=== PATIENT | female | born 1980 | race Caucasian/White ===

== ENCOUNTER 2016-08-21 15:52 | Emergency (ER) | payer BC ==
[~2016-08-21] VITALS: Ht 157.5 cm; Wt 86.4 kg
[~2016-08-21 15:52] MED LIST: AMBIEN 5MG TABLE5 MG PO; AMOXICILLIN 8751 TAB PO; ATARAX 25MG25 MG/TAB PO; ATIVAN 0.50.5 MG/TAB PO; BENADRYL50 MG/ML IJ; BRINTELLIX20 PO; CARAFATE 1GM1 G PO; CARDIZEM LA180 MG PO; CELEXA40 MG PO; COGENTIN .0.5 MG/TAB PO; CYMBALTA 30MG30 MG PO; DAZIDOX10 MG PO; DEPAKOTE500 MG PO; DESYREL 50MG50 MG PO; DILAUDID 2MG TAB2 MG PO; FENTANYL 12MCG TOP; FENTANYL 25 MCG TOP; FLEXERIL 1010 MG/TAB PO; GEODON80 MG PO; HCTZ 25MG TAB25 MG PO; KLONOPIN 1MG1 MG PO; LAMICTAL 25MG T25 MG PO; LOPRESSOR 225 MG/TAB PO; LOPRESSOR 550 MG/TAB PO; LORTAB 5/500 501 TAB PO; MACROBID 1100 MG/CAP PO; MIGRANAL0.5 MG/ACT NS; MIRALAX PA17 GM/Dose PO; NEURONTIN300 MG/CAP PO; NEURONTIN600 MG/TAB PO; NORCO 325 MG-51 TAB PO; NORCO 325 MG-7.1 TAB PO; NORFLEX 30M30 MG/AMP IJ; OXYCONTIN 10MG10 MG PO; PAMELOR 25MG25 MG PO; PERCOCET 325 MG1 TA2 PO; PERCOCET 325 MG1 TAB PO; PHENERGAN 25 TA25 MG PO; PHENERGAN25 MG RC; PHENERGAN25 MG/ML IM; PHENERGAN50 MG/SUPP RC; PREDNISONE20 MG PO; PREMARIN .3MG0.3 MG PO; PREMARIN 0.60.625 M1 PO; PREMPRO 0.45 MG1 TAB PO; PRIL40 PO; PROAIR HFA0.09 MG/AC IH; PROMETHAZINE12.5 M5 PO; PROTONIX 40MG T40 MG PO; PROTONIX20 MG PO; REGLAN 10MG10 MG/TAB PO; ROXICODONE 55 MG/TAB PO; TOPAMAX 25MG25 M1; TOPAMAX50 MG PO; TRANSDERM-0.5 MG/21 TD; ULTRAM 50MG TAB50 MG PO; WELLBUTRIN 75MG75 MG PO; WELLBUTRIN SR150 M1 PO; XANAX 0.5MG0.5 MG PO; ZOFRAN 4MG T4 MG/TAB PO; ZOFRAN INJ4 MG/2 ML IM; ZOFRAN ODT4 MG PO; ZOFRAN ODT8 MG PO; ZOFRAN8 MG PO; ZOLOFT 25MG25 MG PO; ZOVIRAX800 MG PO; [UNRECOGNIZED DRUG - OTHER] PO
[2016-08-21 15:54] VITALS: TEMP 98.2
[2016-08-21 16:40] LABS: BASO # 0.1 (0.0-0.2); BASO % 0.6 % (0.0-2.0); EOS # 0.1 (0.0-0.7); GRAN # 9.8 (1.4-6.5); GRAN % 69.3 % (42.2-75.2); HEMATOCRIT 43.8 % (37.0-47.0); HEMOGLOBIN 14.3 g/dl (12.5-16.0); LYMPH # 3.6 (1.2-3.4); LYMPH % 25.5 % (20.0-51.0); MEAN CELL VOLUME 87 fl (80.0-100.0); MEAN CORPUSCULAR HEMOGLOBIN 28 pg (27.0-31.0); MEAN CORPUSCULAR HGB CONC 33 g/dl (33.0-37.0); MEAN PLATELET VOLUME 11.5 fl (7.4-10.4); MONO # 0.5 (0.1-0.6); MONO % 3.2 % (1.7-9.3); PLATELET COUNT 441 K/mm3 (130-400); RED BLOOD COUNT 5.05 M/mm3 (4.10-5.30); WHITE BLOOD COUNT 14.2 K/mm3 (4.8-10.8)
[2016-08-21 17:49] LABS: PH 5 (5-8); URINE APPEARANCE Clear; URINE BACTERIA Rare /hpf; URINE BILIRUBIN Negative (NEGATIVE); URINE BLOOD Negative (NEGATIVE); URINE COLOR Yellow; URINE GLUCOSE Negative (NEGATIVE); URINE KETONE Negative (NEGATIVE); URINE RBC 0-2 /hpf; URINE UROBILINOGEN Negative (NEGATIVE); URINE WBC 0-2 /hpf
[2016-08-21 18:28] LABS: ADJUSTED CALCIUM 9.1 mg/dL (8.4-10.2); ALBUMIN 4.4 gm/dL (3.5-5.0); BILIRUBIN,TOTAL 0.6 mg/dL (0.0-1.0); CALCIUM 9.4 mg/dL (8.4-10.2); CREATININE, serum 0.81 mg/dL (0.52-1.25); POTASSIUM 3.7 mmol/L (3.4-5.0); TOTAL PROTEIN 8.1 gm/dL (6.4-8.2)
[2016-08-21 18:49] VITALS: BP 120/72; PULSE 88
== END 2016-08-21 18:52 | disposition home or self-care (01) ==
LOC: COL.ER 15:52
PROVIDERS: Emergency Medicine
DX: R10.11 Right upper quadrant pain (principal); K83.8 Other specified diseases of biliary tract; R11.2 Nausea with vomiting, unspecified
CPT/HCPCS: J1170; J2550; J7040

== ENCOUNTER 2016-09-14 13:56 | Emergency (ER) | payer BC ==
[~2016-09-14] VITALS: Ht 157.5 cm; Wt 84.1 kg
[2016-09-14 14:03] VITALS: BP 149/75; PULSE 112; TEMP 99
[2016-09-14] MEDS ORDERED: ZOFRAN INJ4 MG/2 ML IM (14:34)
== END 2016-09-14 15:57 | disposition home or self-care (01) ==
LOC: COL.ER 13:56
DX: R11.10 Vomiting, unspecified (principal); R10.11 Right upper quadrant pain; G89.29 Other chronic pain
CPT/HCPCS: J1170; J2060; J2550

== ENCOUNTER → 2016-09-24 | Outpatient (CLI) | payer BC ==
[~2016-09-24] MED LIST changes: +BENADRYL 50M50 MG/ML IM; +CIPRO 500MG TA500 MG PO; +DILAUDID 4MG TAB4 MG PO; +FENTANYL 25 MCG TD; +TAZTIA180 PO
== END ==
LOC: MHCPAIN 09:48
DX: G89.29 Other chronic pain (principal); R10.9 Unspecified abdominal pain
CPT/HCPCS: G0463

== ENCOUNTER 2016-10-04 17:16 | Emergency (ER) | payer BC ==
[~2016-10-04] VITALS: Ht 157.5 cm; Wt 86.4 kg
[~2016-10-04 17:16] MED LIST changes: -BENADRYL 50M50 MG/ML IM; -CIPRO 500MG TA500 MG PO; -DILAUDID 4MG TAB4 MG PO; -FENTANYL 25 MCG TD; -TAZTIA180 PO
[2016-10-04 17:23] VITALS: BP 168/78
[2016-10-04 18:06] LABS: ADJUSTED CALCIUM 9.6 mg/dL (8.4-10.2); ALBUMIN 4.5 gm/dL (3.5-5.0); BILIRUBIN,TOTAL 0.7 mg/dL (0.0-1.0); CREATININE, serum 0.76 mg/dL (0.52-1.25); TOTAL PROTEIN 7.8 gm/dL (6.4-8.2)
[2016-10-04 18:08] VITALS: TEMP 98.8
[2016-10-04 19:52] VITALS: PULSE 112
[2016-10-05] MEDS ORDERED: BENADRYL 50M50 MG/ML IM (11:10)
== END 2016-10-04 19:53 | disposition home or self-care (01) ==
LOC: COL.ER 17:16
PROVIDERS: Nurse Practitioner
DX: R10.11 Right upper quadrant pain (principal); R11.2 Nausea with vomiting, unspecified; G89.29 Other chronic pain; I10 Essential (primary) hypertension; Z87.891 Personal history of nicotine dependence
CPT/HCPCS: J1170; J1200; J2405; J2550; J7030

== ENCOUNTER → 2016-10-04 | Outpatient (CLI) | payer BC, OTHER | LOC: MHCPAIN 13:51 | DX: R10.11 Right upper quadrant pain (principal) | CPT/HCPCS: J1100 ==

== ENCOUNTER 2016-10-05 10:47 | Outpatient (CLI) | payer BC ==
[~2016-10-05] VITALS: Ht 157.5 cm; Wt 86.3 kg
[2016-10-05] MEDS ORDERED: BENADRYL 50M50 MG/ML IM (11:10)
[2016-10-05 11:22] VITALS: BP 128/77; PULSE 106; TEMP 97.9
== END 2016-10-05 14:11 | disposition home or self-care (01) ==
LOC: EUO 10:47
DX: R10.11 Right upper quadrant pain (principal); G43.A0 Cyclical vomiting, in migraine, not intractable; F41.9 Anxiety disorder, unspecified
CPT/HCPCS: J1170; J2060; J7030

== ENCOUNTER 2016-10-05 17:15 | Observation (INO) | payer BC ==
[~2016-10-05] VITALS: Ht 157.5 cm; Wt 91.6 kg
[~2016-10-05 17:15] MED LIST changes: +BENADRYL 50M50 MG/ML IM
[2016-10-05 19:05] LABS: BASO % 0.2 % (0.0-2.0); EOS % 0.1 % (0-4.0); GRAN # 12.9 (1.4-6.5); GRAN % 74.4 % (42.2-75.2); HEMATOCRIT 37.4 % (37.0-47.0); HEMOGLOBIN 12.3 g/dl (12.5-16.0); LYMPH # 3.6 (1.2-3.4); LYMPH % 20.7 % (20.0-51.0); MEAN CELL VOLUME 87 fl (80.0-100.0); MEAN CORPUSCULAR HEMOGLOBIN 29 pg (27.0-31.0); MEAN CORPUSCULAR HGB CONC 33 g/dl (33.0-37.0); MONO # 0.6 (0.1-0.6); MONO % 3.6 % (1.7-9.3); PLATELET COUNT 392 K/mm3 (130-400); RED BLOOD COUNT 4.31 M/mm3 (4.10-5.30); REDCELL DISTRIBUTION WIDTH-CV 14.4 % (11.5-14.5); WHITE BLOOD COUNT 17.4 K/mm3 (4.8-10.8)
[2016-10-05 19:16] LABS: ADJUSTED CALCIUM 9.3 mg/dL (8.4-10.2); ALBUMIN 4.2 gm/dL (3.5-5.0); BILIRUBIN,TOTAL 0.6 mg/dL (0.0-1.0); CALCIUM 9.5 mg/dL (8.4-10.2); CREATININE, serum 0.77 mg/dL (0.52-1.25); POTASSIUM 3.5 mmol/L (3.4-5.0); TOTAL PROTEIN 7.3 gm/dL (6.4-8.2)
[2016-10-05 20:00] LABS: AMPHETAMINE URINE NEGATIVE; BARBITURATES URINE NEGATIVE; BENZODIAZEPINES URINE POSITIVE; BUPRENORPHINE URINE NEGATIVE; METHADONE URINE NEGATIVE; OPIATES URINE POSITIVE; OXYCODONE URINE NEGATIVE; PHENCYCLIDINE URINE NEGATIVE; PROPOXYPHENE URINE NEGATIVE; THC CANNABINOIDS URINE NEGATIVE
[2016-10-05 20:15] LABS: PH 5 (5-8); URINE APPEARANCE Hazy; URINE BACTERIA None Seen /hpf; URINE BILIRUBIN Negative (NEGATIVE); URINE BLOOD Negative (NEGATIVE); URINE COLOR Yellow; URINE GLUCOSE Negative (NEGATIVE); URINE KETONE Negative (NEGATIVE); URINE RBC 0-2 /hpf; URINE UROBILINOGEN Negative (NEGATIVE); URINE WBC 0-2 /hpf
[2016-10-05 21:38] VITALS: BP 130/76; PULSE 95; TEMP 97.8
[2016-10-05 23:48] VITALS: BP 140/81; PULSE 109; TEMP 98.6
[2016-10-06 04:27] VITALS: BP 110/69; PULSE 87; TEMP 98
[2016-10-06 07:26] LABS: BASO # 0.1 (0.0-0.2); BASO % 0.5 % (0.0-2.0); EOS # 0.1 (0.0-0.7); EOS % 0.5 % (0-4.0); GRAN # 6.2 (1.4-6.5); GRAN % 57.3 % (42.2-75.2); LYMPH % 37.8 % (20.0-51.0); MEAN CELL VOLUME 89 fl (80.0-100.0); MEAN CORPUSCULAR HGB CONC 32 g/dl (33.0-37.0); MEAN PLATELET VOLUME 11.1 fl (7.4-10.4); MONO # 0.3 (0.1-0.6); MONO % 3.2 % (1.7-9.3); PLATELET COUNT 306 K/mm3 (130-400); RED BLOOD COUNT 3.45 M/mm3 (4.10-5.30); REDCELL DISTRIBUTION WIDTH-CV 14.6 % (11.5-14.5); WHITE BLOOD COUNT 10.7 K/mm3 (4.8-10.8)
[2016-10-06 07:51] LABS: CALCIUM 8.1 mg/dL (8.4-10.2); CREATININE, serum 0.72 mg/dL (0.52-1.25); POTASSIUM 3.3 mmol/L (3.4-5.0)
[2016-10-06 07:52] LABS: HEMATOCRIT 30.8 % (37.0-47.0); HEMOGLOBIN 9.8 g/dl (12.5-16.0); MEAN CORPUSCULAR HEMOGLOBIN 28 pg (27.0-31.0)
[2016-10-06 07:53] VITALS: BP 139/85; PULSE 96; TEMP 97.9
[2016-10-06 11:40] VITALS: BP 140/100; PULSE 93; TEMP 98.5
[2016-10-06 15:42] VITALS: BP 126/83; PULSE 85; TEMP 97.7
[2016-10-06 19:54] VITALS: BP 129/79; PULSE 88; TEMP 97.7
[2016-10-07 00:13] VITALS: BP 106/72; PULSE 78; TEMP 98.9
[2016-10-07 02:37] VITALS: BP 108/70; PULSE 78; TEMP 98.4
[2016-10-07 07:44] VITALS: BP 123/79; PULSE 75; TEMP 98.1
[2016-10-07 12:08] VITALS: BP 130/77; PULSE 101; TEMP 98.7
[2016-10-07] MEDS ORDERED: PROTONIX 40MG T40 MG PO (13:16)
[2016-10-07] MEDS ORDERED: DILAUDID 4MG TAB4 MG PO (13:16)
== END 2016-10-07 14:15 | disposition home or self-care (01) ==
LOC: COL.ER 17:15 → MEDICAL 20:26
PROVIDERS: Emergency Medicine; Family Medicine
DX: K83.4 Spasm of sphincter of Oddi (principal); K21.9 Gastro-esophageal reflux disease without esophagitis; R11.2 Nausea with vomiting, unspecified; Z87.891 Personal history of nicotine dependence; F42.9 Obsessive-compulsive disorder, unspecified
CPT/HCPCS: 99239; C9113; G0378; J1170; J1200; J1630; J1650; J2405; J2550; J2765; J7030; J7120

== ENCOUNTER 2016-10-09 16:44 | Emergency (ER) | payer BC ==
[~2016-10-09] VITALS: Ht 157.5 cm; Wt 86.4 kg
[~2016-10-09 16:44] MED LIST changes: +DILAUDID 4MG TAB4 MG PO
[2016-10-09 16:52] VITALS: TEMP 100.3
[2016-10-09 17:31] LABS: BASO # 0.1 (0.0-0.2); BASO % 0.6 % (0.0-2.0); EOS # 0.2 (0.0-0.7); EOS % 1.6 % (0-4.0); GRAN # 8.8 (1.4-6.5); GRAN % 71.4 % (42.2-75.2); HEMOGLOBIN 13.5 g/dl (12.5-16.0); LYMPH # 2.8 (1.2-3.4); LYMPH % 22.5 % (20.0-51.0); MEAN CELL VOLUME 85 fl (80.0-100.0); MEAN CORPUSCULAR HEMOGLOBIN 29 pg (27.0-31.0); MEAN CORPUSCULAR HGB CONC 34 g/dl (33.0-37.0); MEAN PLATELET VOLUME 10.9 fl (7.4-10.4); MONO # 0.4 (0.1-0.6); PLATELET COUNT 456 K/mm3 (130-400); RED BLOOD COUNT 4.72 M/mm3 (4.10-5.30); REDCELL DISTRIBUTION WIDTH-CV 13.9 % (11.5-14.5); WHITE BLOOD COUNT 12.2 K/mm3 (4.8-10.8)
[2016-10-09 17:39] LABS: ADJUSTED CALCIUM 9.4 mg/dL (8.4-10.2); ALBUMIN 4.3 gm/dL (3.5-5.0); BILIRUBIN,TOTAL 0.7 mg/dL (0.0-1.0); CALCIUM 9.6 mg/dL (8.4-10.2); CREATININE, serum 0.74 mg/dL (0.52-1.25); POTASSIUM 3.5 mmol/L (3.4-5.0); TOTAL PROTEIN 7.6 gm/dL (6.4-8.2)
[2016-10-09 18:29] VITALS: BP 120/68; PULSE 115
== END 2016-10-09 18:30 | disposition home or self-care (01) ==
LOC: COL.ER 16:44
PROVIDERS: Family Medicine
DX: R10.84 Generalized abdominal pain (principal); R11.2 Nausea with vomiting, unspecified; G89.29 Other chronic pain
CPT/HCPCS: J1170; J1200; J1630; J2405; J7030

== ENCOUNTER 2016-10-11 10:47 | Outpatient (CLI) | payer BC ==
[~2016-10-11] VITALS: Ht 157.5 cm; Wt 86.8 kg
[2016-10-11 11:36] LABS: HEMATOCRIT 38.7 % (37.0-47.0); MEAN CELL VOLUME 85 fl (80.0-100.0); MEAN CORPUSCULAR HEMOGLOBIN 29 pg (27.0-31.0); MEAN CORPUSCULAR HGB CONC 34 g/dl (33.0-37.0); PLATELET COUNT 434 K/mm3 (130-400); RED BLOOD COUNT 4.56 M/mm3 (4.10-5.30); REDCELL DISTRIBUTION WIDTH-CV 14.4 % (11.5-14.5); WHITE BLOOD COUNT 11.9 K/mm3 (4.8-10.8)
[2016-10-11 11:48] VITALS: BP 145/93; PULSE 104; TEMP 98.7
[2016-10-11 11:52] LABS: ADJUSTED CALCIUM 9.2 mg/dL (8.4-10.2); ALBUMIN 4.1 gm/dL (3.5-5.0); BILIRUBIN,TOTAL 0.8 mg/dL (0.0-1.0); CALCIUM 9.3 mg/dL (8.4-10.2); CREATININE, serum 0.74 mg/dL (0.52-1.25); POTASSIUM 3.4 mmol/L (3.4-5.0); TOTAL PROTEIN 7.1 gm/dL (6.4-8.2)
== END 2016-10-11 15:02 | disposition home or self-care (01) ==
LOC: EUO 10:47
PROVIDERS: Family Medicine
DX: O21.0 Mild hyperemesis gravidarum (principal); G43.A1 Cyclical vomiting, in migraine, intractable; R10.11 Right upper quadrant pain; Z3A.00 Weeks of gestation of pregnancy not specified
CPT/HCPCS: J1170; J2550; J7120

== ENCOUNTER 2016-10-17 11:10 | Emergency (ER) | payer BC ==
[~2016-10-17] VITALS: Ht 157.5 cm; Wt 86.4 kg
[2016-10-17 11:13] VITALS: BP 138/63; TEMP 98.4
[2016-10-17 14:14] LABS: BASO # 0.1 (0.0-0.2); BASO % 0.6 % (0.0-2.0); EOS # 0.1 (0.0-0.7); GRAN # 8.3 (1.4-6.5); GRAN % 76.2 % (42.2-75.2); HEMATOCRIT 40.7 % (37.0-47.0); HEMOGLOBIN 13.6 g/dl (12.5-16.0); LYMPH % 18.5 % (20.0-51.0); MEAN CELL VOLUME 86 fl (80.0-100.0); MEAN CORPUSCULAR HEMOGLOBIN 29 pg (27.0-31.0); MEAN CORPUSCULAR HGB CONC 33 g/dl (33.0-37.0); MEAN PLATELET VOLUME 11.5 fl (7.4-10.4); MONO # 0.3 (0.1-0.6); MONO % 3.1 % (1.7-9.3); PLATELET COUNT 346 K/mm3 (130-400); RED BLOOD COUNT 4.72 M/mm3 (4.10-5.30); REDCELL DISTRIBUTION WIDTH-CV 14.6 % (11.5-14.5); WHITE BLOOD COUNT 10.9 K/mm3 (4.8-10.8)
[2016-10-17 14:35] LABS: ADJUSTED CALCIUM 9.5 mg/dL (8.4-10.2); ALBUMIN 4.3 gm/dL (3.5-5.0); BILIRUBIN,TOTAL 0.7 mg/dL (0.0-1.0); C-REACTIVE PROTEIN 1.9 mg/dL (0.0-0.9); CALCIUM 9.7 mg/dL (8.4-10.2); CREATININE, serum 0.85 mg/dL (0.52-1.25); POTASSIUM 3.7 mmol/L (3.4-5.0); TOTAL PROTEIN 7.5 gm/dL (6.4-8.2)
[2016-10-17] MEDS ORDERED: PHENERGAN 25 TA25 MG PO (15:01)
[2016-10-17 15:16] VITALS: PULSE 96
== END 2016-10-17 15:17 | disposition home or self-care (01) ==
LOC: COL.ER 11:10
PROVIDERS: Family Medicine
DX: R10.11 Right upper quadrant pain (principal); R11.2 Nausea with vomiting, unspecified
CPT/HCPCS: J1200; J2060; J2405; J2550; J7030

== ENCOUNTER 2016-10-18 12:27 | Outpatient (CLI) | payer BC ==
[2016-10-18 14:38] LABS: ADJUSTED CALCIUM 9.3 mg/dL (8.4-10.2); BILIRUBIN,TOTAL 0.6 mg/dL (0.0-1.0); CALCIUM 9.3 mg/dL (8.4-10.2); CREATININE, serum 0.72 mg/dL (0.52-1.25); POTASSIUM 3.8 mmol/L (3.4-5.0)
[2016-10-18 14:45] VITALS: BP 104/55; PULSE 118; TEMP 98.7
[2016-10-18 16:41] LABS: BASO # 0.1 (0.0-0.2); BASO % 0.9 % (0.0-2.0); EOS # 0.2 (0.0-0.7); EOS % 2.8 % (0-4.0); GRAN # 5.4 (1.4-6.5); GRAN % 61.4 % (42.2-75.2); HEMATOCRIT 38.6 % (37.0-47.0); HEMOGLOBIN 12.5 g/dl (12.5-16.0); LYMPH # 2.7 (1.2-3.4); LYMPH % 30.5 % (20.0-51.0); MEAN CELL VOLUME 88 fl (80.0-100.0); MEAN CORPUSCULAR HEMOGLOBIN 29 pg (27.0-31.0); MEAN CORPUSCULAR HGB CONC 32 g/dl (33.0-37.0); MEAN PLATELET VOLUME 11.8 fl (7.4-10.4); MONO # 0.3 (0.1-0.6); MONO % 3.9 % (1.7-9.3); PLATELET COUNT 328 K/mm3 (130-400); RED BLOOD COUNT 4.38 M/mm3 (4.10-5.30); REDCELL DISTRIBUTION WIDTH-CV 14.5 % (11.5-14.5); WHITE BLOOD COUNT 8.7 K/mm3 (4.8-10.8)
== END 2016-10-18 17:13 | disposition home or self-care (01) ==
LOC: EUO 12:27
PROVIDERS: Family Medicine
DX: R11.2 Nausea with vomiting, unspecified (principal); R10.11 Right upper quadrant pain
CPT/HCPCS: J1170; J2550; J7120

== ENCOUNTER 2016-11-01 14:48 | Emergency (ER) | payer BC ==
[~2016-11-01] VITALS: Ht 157.5 cm; Wt 86.4 kg
[2016-11-01 14:51] VITALS: TEMP 99.2
[2016-11-01 16:12] LABS: ADJUSTED CALCIUM 9.4 mg/dL (8.4-10.2); ALBUMIN 4.3 gm/dL (3.5-5.0); BILIRUBIN,TOTAL 0.8 mg/dL (0.0-1.0); C-REACTIVE PROTEIN 1.7 mg/dL (0.0-0.9); CALCIUM 9.6 mg/dL (8.4-10.2); CREATININE, serum 0.74 mg/dL (0.52-1.25); MAGNESIUM 1.8 mg/dL (1.6-2.3); POTASSIUM 3.9 mmol/L (3.4-5.0); TOTAL PROTEIN 7.7 gm/dL (6.4-8.2)
[2016-11-01 16:22] LABS: BASO # 0.1 (0.0-0.2); BASO % 0.6 % (0.0-2.0); EOS # 0.1 (0.0-0.7); EOS % 0.6 % (0-4.0); GRAN # 7.1 (1.4-6.5); GRAN % 79.5 % (42.2-75.2); HEMATOCRIT 41.2 % (37.0-47.0); HEMOGLOBIN 13.5 g/dl (12.5-16.0); LYMPH # 1.5 (1.2-3.4); LYMPH % 16.2 % (20.0-51.0); MEAN CELL VOLUME 86 fl (80.0-100.0); MEAN CORPUSCULAR HEMOGLOBIN 28 pg (27.0-31.0); MEAN CORPUSCULAR HGB CONC 33 g/dl (33.0-37.0); MEAN PLATELET VOLUME 11.3 fl (7.4-10.4); MONO # 0.2 (0.1-0.6); MONO % 2.5 % (1.7-9.3); PLATELET COUNT 364 K/mm3 (130-400); RED BLOOD COUNT 4.81 M/mm3 (4.10-5.30); REDCELL DISTRIBUTION WIDTH-CV 14.2 % (11.5-14.5); WHITE BLOOD COUNT 8.9 K/mm3 (4.8-10.8)
[2016-11-01 17:37] VITALS: BP 143/101; PULSE 111
[2016-11-02] MEDS ORDERED: TAZTIA180 PO (11:33)
== END 2016-11-01 17:41 | disposition home or self-care (01) ==
LOC: COL.ER 14:48
PROVIDERS: Emergency Medicine
DX: R10.11 Right upper quadrant pain (principal); G89.29 Other chronic pain; R11.10 Vomiting, unspecified
CPT/HCPCS: J1170; J1200; J2060; J2550; J7030

== ENCOUNTER 2016-11-02 10:55 | Outpatient (CLI) | payer BC ==
[~2016-11-02] VITALS: Ht 157.5 cm; Wt 86.0 kg
[2016-11-02 11:20] VITALS: BP 130/78; PULSE 96; TEMP 99.1
[2016-11-02] MEDS ORDERED: TAZTIA180 PO (11:33)
[2016-11-02 12:21] LABS: HEMATOCRIT 38.1 % (37.0-47.0); HEMOGLOBIN 12.6 g/dl (12.5-16.0); MEAN CELL VOLUME 86 fl (80.0-100.0); MEAN CORPUSCULAR HEMOGLOBIN 28 pg (27.0-31.0); MEAN CORPUSCULAR HGB CONC 33 g/dl (33.0-37.0); MEAN PLATELET VOLUME 11.2 fl (7.4-10.4); PLATELET COUNT 342 K/mm3 (130-400); RED BLOOD COUNT 4.44 M/mm3 (4.10-5.30); REDCELL DISTRIBUTION WIDTH-CV 14.3 % (11.5-14.5); WHITE BLOOD COUNT 7.6 K/mm3 (4.8-10.8)
[2016-11-02 12:32] LABS: ADJUSTED CALCIUM 8.9 mg/dL (8.4-10.2); ALBUMIN 3.9 gm/dL (3.5-5.0); BILIRUBIN,TOTAL 0.7 mg/dL (0.0-1.0); CALCIUM 8.8 mg/dL (8.4-10.2); CREATININE, serum 0.69 mg/dL (0.52-1.25); POTASSIUM 3.9 mmol/L (3.4-5.0); TOTAL PROTEIN 6.9 gm/dL (6.4-8.2)
== END 2016-11-02 16:21 | disposition home or self-care (01) ==
LOC: EUO 10:55
PROVIDERS: Family Medicine
DX: R10.11 Right upper quadrant pain (principal); R11.0 Nausea
CPT/HCPCS: J1170; J2060; J2550; J7120

== ENCOUNTER 2016-11-03 12:35 | Emergency (ER) | payer BC, OTHER ==
[~2016-11-03] VITALS: Ht 157.5 cm; Wt 86.4 kg
[~2016-11-03 12:35] MED LIST changes: +TAZTIA180 PO
[2016-11-03 12:37] VITALS: BP 146/98; TEMP 99.8
[2016-11-03 15:01] VITALS: PULSE 107
== END 2016-11-03 14:49 | disposition home or self-care (01) ==
LOC: COL.ER 12:35
DX: R11.2 Nausea with vomiting, unspecified (principal); R10.11 Right upper quadrant pain; R63.0 Anorexia; R50.9 Fever, unspecified
CPT/HCPCS: J1200; J1630

== ENCOUNTER → 2016-11-07 | Outpatient (CLI) | payer BC ==
[~2016-11-07] MED LIST changes: +CIPRO 500MG TA500 MG PO; +FENTANYL 25 MCG TD
== END ==
LOC: MHCPAIN 10:23
DX: G89.29 Other chronic pain (principal); R10.9 Unspecified abdominal pain; M25.561 Pain in right knee; M25.562 Pain in left knee
CPT/HCPCS: G0463

== ENCOUNTER 2016-11-16 14:58 | Outpatient (CLI) | payer BC ==
[~2016-11-16] VITALS: Ht 157.5 cm; Wt 86.0 kg
[~2016-11-16 14:58] MED LIST changes: -CIPRO 500MG TA500 MG PO; -FENTANYL 25 MCG TD
[2016-11-16 15:24] VITALS: BP 123/87; PULSE 130; TEMP 98.4
[2016-11-16 16:24] LABS: HEMATOCRIT 41.2 % (37.0-47.0); HEMOGLOBIN 13.8 g/dl (12.5-16.0); MEAN CELL VOLUME 86 fl (80.0-100.0); MEAN CORPUSCULAR HEMOGLOBIN 29 pg (27.0-31.0); MEAN CORPUSCULAR HGB CONC 34 g/dl (33.0-37.0); MEAN PLATELET VOLUME 11.2 fl (7.4-10.4); PLATELET COUNT 371 K/mm3 (130-400); REDCELL DISTRIBUTION WIDTH-CV 13.7 % (11.5-14.5); WHITE BLOOD COUNT 10.7 K/mm3 (4.8-10.8)
[2016-11-16 16:25] LABS: AMYLASE 41 U/L (30-110); LIPASE 42 U/L (23-300)
[2016-11-16 16:37] LABS: ADJUSTED CALCIUM 9.1 mg/dL (8.4-10.2); ALBUMIN 4.2 gm/dL (3.5-5.0); BILIRUBIN,TOTAL 0.8 mg/dL (0.0-1.0); CALCIUM 9.3 mg/dL (8.4-10.2); CREATININE, serum 0.71 mg/dL (0.52-1.25); POTASSIUM 3.8 mmol/L (3.4-5.0); TOTAL PROTEIN 7.6 gm/dL (6.4-8.2)
== END 2016-11-16 19:58 | disposition home or self-care (01) ==
LOC: EUO 14:58
PROVIDERS: Family Medicine
DX: R52 Pain, unspecified (principal)
CPT/HCPCS: J1170; J2550; J7120

== ENCOUNTER 2016-12-09 12:48 | Emergency (ER) | payer BC ==
[~2016-12-09] VITALS: Ht 157.5 cm; Wt 86.4 kg
[2016-12-09 12:49] VITALS: BP 132/94; TEMP 99.8
[2016-12-09 13:09] LABS: COLLECTION METHOD CLEAN CATCH
[2016-12-09 13:14] LABS: MUCOUS Present /lpf; PH 7 (5-8); URINE APPEARANCE Hazy; URINE BACTERIA None Seen /hpf; URINE BILIRUBIN Negative (NEGATIVE); URINE BLOOD Negative (NEGATIVE); URINE COLOR Yellow; URINE GLUCOSE Negative (NEGATIVE); URINE KETONE Negative (NEGATIVE); URINE LEUKOCYTE ESTERASE Negative (NEGATIVE); URINE PROTEIN(semi-quant) Negative (NEGATIVE); URINE RBC 0-2 /hpf; URINE UROBILINOGEN Negative (NEGATIVE); URINE WBC 0-2 /hpf
[2016-12-09] MEDS ORDERED: CIPRO 500MG TA500 MG PO (13:58)
[2016-12-09 14:06] VITALS: PULSE 101
[2017-03-24] MEDS ORDERED: PHENERGAN 25 TA25 MG PO (18:19)
== END 2016-12-09 14:07 | disposition home or self-care (01) ==
LOC: COL.ER 12:48
PROVIDERS: Physician Assistant
DX: N39.0 Urinary tract infection, site not specified (principal)

== ENCOUNTER 2016-12-10 16:20 | Outpatient (CLI) | payer BC ==
[~2016-12-10] VITALS: Ht 157.5 cm; Wt 86.0 kg
[~2016-12-10 16:20] MED LIST changes: +CIPRO 500MG TA500 MG PO
[2016-12-10 17:08] VITALS: BP 128/80; PULSE 99; TEMP 98.3
== END 2016-12-10 19:16 ==
LOC: EUO 16:20
DX: F41.9 Anxiety disorder, unspecified (principal); R11.0 Nausea; R10.11 Right upper quadrant pain
CPT/HCPCS: J1170; J2060; J2550; J7120

== ENCOUNTER 2016-12-12 14:43 | Outpatient (CLI) | payer BC ==
[~2016-12-12] VITALS: Ht 157.5 cm; Wt 85.9 kg
[2016-12-12 15:53] VITALS: BP 131/91; PULSE 108; TEMP 99.1
== END 2016-12-12 19:03 | disposition home or self-care (01) ==
LOC: EUO 14:43
DX: R11.2 Nausea with vomiting, unspecified (principal); R10.11 Right upper quadrant pain
CPT/HCPCS: J1170; J2060; J2550; J7120

== ENCOUNTER → 2016-12-21 | Outpatient (CLI) | payer BC ==
[~2016-12-21] VITALS: Ht 157.5 cm; Wt 86.0 kg
[~2016-12-21] MED LIST changes: +FENTANYL 25 MCG TD
[2016-12-21 16:52] VITALS: BP 125/93; PULSE 101; TEMP 98
== END ==
LOC: EUO 15:36
DX: R11.2 Nausea with vomiting, unspecified (principal); Z79.899 Other long term (current) drug therapy
CPT/HCPCS: J1170; J2060; J2550; J7120

== ENCOUNTER 2016-12-23 13:22 | Emergency (ER) | payer BC ==
[~2016-12-23] VITALS: Ht 157.5 cm; Wt 86.4 kg
[~2016-12-23 13:22] MED LIST changes: -FENTANYL 25 MCG TD
[2016-12-23 13:26] VITALS: BP 149/106; TEMP 99.7
[2016-12-23 14:16] LABS: BASO # 0.1 (0.0-0.2); BASO % 1.1 % (0.0-2.0); EOS # 0.2 (0.0-0.7); EOS % 2.4 % (0-4.0); GRAN # 5.1 (1.4-6.5); GRAN % 59.3 % (42.2-75.2); HEMATOCRIT 39.2 % (37.0-47.0); HEMOGLOBIN 13.3 g/dl (12.5-16.0); LYMPH # 2.7 (1.2-3.4); LYMPH % 31.5 % (20.0-51.0); MEAN CELL VOLUME 85 fl (80.0-100.0); MEAN CORPUSCULAR HEMOGLOBIN 29 pg (27.0-31.0); MEAN CORPUSCULAR HGB CONC 34 g/dl (33.0-37.0); MEAN PLATELET VOLUME 11.1 fl (7.4-10.4); MONO # 0.5 (0.1-0.6); MONO % 5.3 % (1.7-9.3); PLATELET COUNT 333 K/mm3 (130-400); RED BLOOD COUNT 4.59 M/mm3 (4.10-5.30); REDCELL DISTRIBUTION WIDTH-CV 14.1 % (11.5-14.5); WHITE BLOOD COUNT 8.5 K/mm3 (4.8-10.8)
[2016-12-23 14:23] LABS: ADJUSTED CALCIUM 9.4 mg/dL (8.4-10.2); ALBUMIN 4.1 gm/dL (3.5-5.0); BILIRUBIN,TOTAL 0.5 mg/dL (0.0-1.0); CALCIUM 9.5 mg/dL (8.4-10.2); CREATININE, serum 0.75 mg/dL (0.52-1.25); POTASSIUM 3.9 mmol/L (3.4-5.0); TOTAL PROTEIN 7.5 gm/dL (6.4-8.2)
[2016-12-23 15:57] VITALS: PULSE 102
== END 2016-12-23 16:00 | disposition home or self-care (01) ==
LOC: COL.ER 13:22
PROVIDERS: Physician Assistant Medical
DX: G89.29 Other chronic pain (principal); R10.9 Unspecified abdominal pain; R11.10 Vomiting, unspecified; F41.9 Anxiety disorder, unspecified; Z90.49 Acquired absence of other specified parts of digestive tract; Z90.710 Acquired absence of both cervix and uterus; Z98.890 Other specified postprocedural states
CPT/HCPCS: J1170; J2060; J2550; J7030

== ENCOUNTER 2016-12-28 17:03 | Emergency (ER) | payer BC ==
[~2016-12-28] VITALS: Ht 157.5 cm; Wt 86.4 kg
[2016-12-28 17:06] VITALS: TEMP 100.6
[2016-12-28 18:02] LABS: BASO # 0.1 (0.0-0.2); BASO % 0.6 % (0.0-2.0); EOS # 0.2 (0.0-0.7); EOS % 1.6 % (0-4.0); GRAN # 7.8 (1.4-6.5); GRAN % 71.1 % (42.2-75.2); HEMATOCRIT 42.3 % (37.0-47.0); HEMOGLOBIN 14.2 g/dl (12.5-16.0); LYMPH # 2.5 (1.2-3.4); LYMPH % 22.4 % (20.0-51.0); MEAN CELL VOLUME 84 fl (80.0-100.0); MEAN CORPUSCULAR HEMOGLOBIN 28 pg (27.0-31.0); MEAN CORPUSCULAR HGB CONC 34 g/dl (33.0-37.0); MEAN PLATELET VOLUME 11.1 fl (7.4-10.4); MONO # 0.4 (0.1-0.6); MONO % 3.8 % (1.7-9.3); PLATELET COUNT 355 K/mm3 (130-400); RED BLOOD COUNT 5.02 M/mm3 (4.10-5.30); REDCELL DISTRIBUTION WIDTH-CV 14.1 % (11.5-14.5); WHITE BLOOD COUNT 10.9 K/mm3 (4.8-10.8)
[2016-12-28 18:30] LABS: ERYTHROCYTE SEDIMENTATION RATE 16 mm/hr (0-20)
[2016-12-28 18:51] LABS: ADJUSTED CALCIUM 8.9 mg/dL (8.4-10.2); BILIRUBIN,TOTAL 0.3 mg/dL (0.0-1.0); CALCIUM 8.9 mg/dL (8.4-10.2); CREATININE, serum 0.73 mg/dL (0.52-1.25); POTASSIUM 3.6 mmol/L (3.4-5.0); TOTAL PROTEIN 7.1 gm/dL (6.4-8.2)
[2016-12-28 19:47] LABS: PH 5 (5-8); SQUAMOUS EPITHELIAL 0-2 /hpf; URINE APPEARANCE Clear; URINE BACTERIA Rare /hpf; URINE BILIRUBIN Negative (NEGATIVE); URINE BLOOD Negative (NEGATIVE); URINE COLOR Yellow; URINE GLUCOSE Negative (NEGATIVE); URINE KETONE Negative (NEGATIVE); URINE RBC 0-2 /hpf; URINE UROBILINOGEN Negative (NEGATIVE); URINE WBC 0-2 /hpf
[2016-12-28 20:11] VITALS: BP 130/85; PULSE 99
== END 2016-12-28 20:21 | disposition home or self-care (01) ==
LOC: COL.ER 17:03
PROVIDERS: Emergency Medicine
DX: R10.11 Right upper quadrant pain (principal); F17.210 Nicotine dependence, cigarettes, uncomplicated; Z90.710 Acquired absence of both cervix and uterus; Z90.49 Acquired absence of other specified parts of digestive tract; Z90.89 Acquired absence of other organs; Z98.890 Other specified postprocedural states
CPT/HCPCS: J1170; J1200; J1630; J2060; J7030

== ENCOUNTER 2016-12-31 14:34 | Outpatient (CLI) | payer BC ==
[~2016-12-31] VITALS: Ht 157.5 cm; Wt 86.3 kg
[2016-12-31 17:05] VITALS: BP 135/81; PULSE 88; TEMP 99.3
== END 2016-12-31 20:23 | disposition home or self-care (01) ==
LOC: EUO 14:34
DX: R11.2 Nausea with vomiting, unspecified (principal); R10.11 Right upper quadrant pain
CPT/HCPCS: J1170; J2060; J2550; J7120

== ENCOUNTER 2017-01-05 19:47 | Emergency (ER) | payer BC ==
[~2017-01-05] VITALS: Ht 157 cm; Wt 86.4 kg
[2017-01-05 19:56] VITALS: BP 140/81; TEMP 99.4
[2017-01-05] MEDS ORDERED: GEODON80 MG PO (20:10)
[2017-01-05] MEDS ORDERED: FENTANYL 25 MCG TD (20:11)
[2017-01-05 20:47] LABS: BASO # 0.1 (0.0-0.2); BASO % 0.7 % (0.0-2.0); EOS # 0.3 (0.0-0.7); EOS % 2.9 % (0-4.0); GRAN # 6.1 (1.4-6.5); GRAN % 59.8 % (42.2-75.2); HEMATOCRIT 44.5 % (37.0-47.0); HEMOGLOBIN 14.7 g/dl (12.5-16.0); LYMPH # 3.3 (1.2-3.4); LYMPH % 32.3 % (20.0-51.0); MEAN CELL VOLUME 86 fl (80.0-100.0); MEAN CORPUSCULAR HEMOGLOBIN 28 pg (27.0-31.0); MEAN CORPUSCULAR HGB CONC 33 g/dl (33.0-37.0); MEAN PLATELET VOLUME 10.7 fl (7.4-10.4); MONO # 0.4 (0.1-0.6); MONO % 3.9 % (1.7-9.3); PLATELET COUNT 458 K/mm3 (130-400); RED BLOOD COUNT 5.18 M/mm3 (4.10-5.30); REDCELL DISTRIBUTION WIDTH-CV 13.7 % (11.5-14.5); WHITE BLOOD COUNT 10.1 K/mm3 (4.8-10.8)
[2017-01-05 21:00] LABS: ADJUSTED CALCIUM 9.6 mg/dL (8.4-10.2); ALBUMIN 4.7 gm/dL (3.5-5.0); BILIRUBIN,TOTAL 0.4 mg/dL (0.0-1.0); CALCIUM 10.2 mg/dL (8.4-10.2); CREATININE, serum 0.81 mg/dL (0.52-1.25); POTASSIUM 4.2 mmol/L (3.4-5.0); TOTAL PROTEIN 8.4 gm/dL (6.4-8.2)
[2017-01-05 21:17] LABS: PH 5 (5-8); URINE APPEARANCE Hazy; URINE BACTERIA Rare /hpf; URINE BILIRUBIN Negative (NEGATIVE); URINE BLOOD Negative (NEGATIVE); URINE COLOR Yellow; URINE GLUCOSE Negative (NEGATIVE); URINE KETONE Negative (NEGATIVE); URINE RBC None Seen /hpf; URINE UROBILINOGEN Negative (NEGATIVE); URINE WBC 0-2 /hpf
[2017-01-05 21:48] VITALS: PULSE 102
== END 2017-01-05 21:49 | disposition home or self-care (01) ==
LOC: COL.ER 19:47
PROVIDERS: Emergency Medicine
DX: R10.11 Right upper quadrant pain (principal); G89.29 Other chronic pain; R11.2 Nausea with vomiting, unspecified; K83.8 Other specified diseases of biliary tract; F41.9 Anxiety disorder, unspecified
CPT/HCPCS: J1170; J2405; J2550; J7030

== ENCOUNTER 2017-01-10 14:15 | Observation (INO) | payer BC ==
[~2017-01-10] VITALS: Ht 157.5 cm; Wt 85.6 kg
[2017-01-10] VITALS (9 sets, daily range): BP systolic 114–141; BP diastolic 65–117; PULSE 104–126; TEMP 98–99.2
[~2017-01-10 14:15] MED LIST changes: +FENTANYL 25 MCG TD
[2017-01-10] MEDS ORDERED: DAZIDOX10 MG PO (15:02)
[2017-01-11 00:58] LABS: ALBUMIN 3.7 gm/dL (3.5-5.0); TOTAL PROTEIN 6.7 gm/dL (6.4-8.2)
[2017-01-11 01:12] LABS: BILIRUBIN,DIRECT 0.5 mg/dL (0.0-0.4); BILIRUBIN,TOTAL 0.5 mg/dL (0.0-1.0)
[2017-01-11 01:14] VITALS: BP 111/51; BP 119/70; PULSE 105; PULSE 69; TEMP 98.1; TEMP 98.4
[2017-01-11 05:49] VITALS: BP 101/40; PULSE 84; TEMP 97.3
[2017-01-11 09:54] VITALS: BP 145/91; PULSE 117
== END 2017-01-11 14:28 | disposition home or self-care (01) ==
LOC: SDCO 14:15 → SURG 16:50 → SDCO 16:50 → SURG 01-11 14:28
PROVIDERS: Internal Medicine Gastroenterology
DX: K31.5 Obstruction of duodenum (principal); K83.8 Other specified diseases of biliary tract; K31.9 Disease of stomach and duodenum, unspecified; K31.1 Adult hypertrophic pyloric stenosis; G89.4 Chronic pain syndrome; Z76.5 Malingerer [conscious simulation]; G43.909 Migraine, unspecified, not intractable, without status migrainosus; F42.9 Obsessive-compulsive disorder, unspecified
CPT/HCPCS: 99239; C1727; C1769; G0378; G0379; J1170; J1200; J2060; J2250; J2550; J2704; J7120; Q9967

== ENCOUNTER 2017-01-11 15:20 | Outpatient (CLI) | payer BC ==
[2017-01-11 15:24] VITALS: BP 145/85; PULSE 111; TEMP 99
== END 2017-01-11 18:40 | disposition home or self-care (01) ==
LOC: EUO 15:20
DX: R11.2 Nausea with vomiting, unspecified (principal); R10.11 Right upper quadrant pain
CPT/HCPCS: J1170; J2550; J7120

== ENCOUNTER 2017-01-19 19:42 | Inpatient (IN) | payer BC ==
[~2017-01-19] VITALS: Ht 157.5 cm; Wt 87.3 kg
[2017-01-19 20:08] LABS: BASO # 0.1 (0.0-0.2); BASO % 0.6 % (0.0-2.0); EOS # 0.2 (0.0-0.7); EOS % 1.5 % (0-4.0); GRAN # 5.9 (1.4-6.5); GRAN % 59.3 % (42.2-75.2); HEMATOCRIT 40.6 % (37.0-47.0); HEMOGLOBIN 13.7 g/dl (12.5-16.0); LYMPH # 3.4 (1.2-3.4); MEAN CELL VOLUME 85 fl (80.0-100.0); MEAN CORPUSCULAR HEMOGLOBIN 29 pg (27.0-31.0); MEAN CORPUSCULAR HGB CONC 34 g/dl (33.0-37.0); MONO # 0.4 (0.1-0.6); PLATELET COUNT 418 K/mm3 (130-400); RED BLOOD COUNT 4.79 M/mm3 (4.10-5.30); REDCELL DISTRIBUTION WIDTH-CV 13.9 % (11.5-14.5); WHITE BLOOD COUNT 9.9 K/mm3 (4.8-10.8)
[2017-01-19 20:25] LABS: ADJUSTED CALCIUM 9.4 mg/dL (8.4-10.2); ALANINE AMINOTRANSFERASE 20 U/L (9-52); ALBUMIN 4.4 gm/dL (3.5-5.0); ALKALINE PHOSPHATASE 105 U/L (50-136); ANION GAP 17 mmol/L (7-16); BILIRUBIN,TOTAL 0.4 mg/dL (0.0-1.0); BLOOD UREA NITROGEN 8 mg/dL (7-17); CALCIUM 9.7 mg/dL (8.4-10.2); CARBON DIOXIDE 22 mmol/L (22-30); CHLORIDE 105 mmol/L (98-107); CREATININE, serum 0.68 mg/dL (0.52-1.25); GLUCOSE 107 mg/dL (74-106); LIPASE 79 U/L (23-300); POTASSIUM 3.7 mmol/L (3.4-5.0); SODIUM 143 mmol/L (137-145); TOTAL PROTEIN 7.6 gm/dL (6.4-8.2)
[2017-01-19 21:19] LABS: PH 6 (5-8); SQUAMOUS EPITHELIAL 0-2 /hpf; URINE APPEARANCE Clear; URINE BACTERIA None Seen /hpf; URINE BILIRUBIN Negative (NEGATIVE); URINE BLOOD Negative (NEGATIVE); URINE COLOR Straw; URINE GLUCOSE Negative (NEGATIVE); URINE KETONE Negative (NEGATIVE); URINE RBC 0-2 /hpf; URINE UROBILINOGEN Negative (NEGATIVE); URINE WBC 0-2 /hpf
[2017-01-19 22:41] VITALS: BP 118/56; PULSE 88; TEMP 98.7
[2017-01-20] VITALS: BP 102/60; PULSE 83; TEMP 98.4
[2017-01-20 00:47] LABS: AMPHETAMINE URINE NEGATIVE; BARBITURATES URINE NEGATIVE; BENZODIAZEPINES URINE NEGATIVE; BUPRENORPHINE URINE NEGATIVE; METHADONE URINE NEGATIVE; OPIATES URINE POSITIVE; OXYCODONE URINE POSITIVE; PHENCYCLIDINE URINE NEGATIVE; PROPOXYPHENE URINE NEGATIVE; THC CANNABINOIDS URINE NEGATIVE
[2017-01-20 04:38] VITALS: BP 118/63; PULSE 82; TEMP 97.7
[2017-01-20 06:31] LABS: BASO # 0.1 (0.0-0.2); EOS # 0.2 (0.0-0.7); EOS % 2.9 % (0-4.0); GRAN # 3.5 (1.4-6.5); GRAN % 49.3 % (42.2-75.2); LYMPH % 41.8 % (20.0-51.0); MEAN CELL VOLUME 87 fl (80.0-100.0); MEAN CORPUSCULAR HGB CONC 33 g/dl (33.0-37.0); MEAN PLATELET VOLUME 11.1 fl (7.4-10.4); MONO # 0.3 (0.1-0.6); MONO % 4.6 % (1.7-9.3); RED BLOOD COUNT 3.69 M/mm3 (4.10-5.30); REDCELL DISTRIBUTION WIDTH-CV 14.3 % (11.5-14.5); WHITE BLOOD COUNT 7.2 K/mm3 (4.8-10.8)
[2017-01-20 06:36] LABS: CALCIUM 8.1 mg/dL (8.4-10.2); CREATININE, serum 0.65 mg/dL (0.52-1.25); POTASSIUM 3.4 mmol/L (3.4-5.0)
[2017-01-20 06:41] LABS: HEMATOCRIT 32.2 % (37.0-47.0); HEMOGLOBIN 10.5 g/dl (12.5-16.0); MEAN CORPUSCULAR HEMOGLOBIN 28 pg (27.0-31.0); PLATELET COUNT 298 K/mm3 (130-400)
[2017-01-20 08:13] VITALS: BP 108/61; PULSE 73; TEMP 97.4
[2017-01-20 11:49] VITALS: BP 106/50; PULSE 96; TEMP 98
== END 2017-01-20 15:43 | disposition home or self-care (01) | DRG 392 ==
LOC: COL.ER 19:42 → MEDICAL 21:36
PROVIDERS: Emergency Medicine; Nurse Practitioner Family
DX: R10.84 Generalized abdominal pain (principal); R11.2 Nausea with vomiting, unspecified; E86.0 Dehydration; F42.9 Obsessive-compulsive disorder, unspecified; F41.9 Anxiety disorder, unspecified; Z87.891 Personal history of nicotine dependence; G43.909 Migraine, unspecified, not intractable, without status migrainosus
CPT/HCPCS: 99238; C9113; G0378; J1170; J1200; J1630; J2405; J2550; J3480; J7030; Q9967

== ENCOUNTER 2017-01-25 15:20 | Emergency (ER) | payer BC ==
[~2017-01-25] VITALS: Ht 157.5 cm; Wt 81.8 kg
[2017-01-25 15:24] VITALS: BP 136/69; TEMP 100
[2017-01-25 16:23] LABS: BASO # 0.1 (0.0-0.2); BASO % 0.6 % (0.0-2.0); EOS # 0.1 (0.0-0.7); EOS % 0.7 % (0-4.0); GRAN # 6.7 (1.4-6.5); GRAN % 68.7 % (42.2-75.2); HEMATOCRIT 43.3 % (37.0-47.0); HEMOGLOBIN 14.5 g/dl (12.5-16.0); LYMPH # 2.4 (1.2-3.4); LYMPH % 24.8 % (20.0-51.0); MEAN CELL VOLUME 85 fl (80.0-100.0); MEAN CORPUSCULAR HEMOGLOBIN 28 pg (27.0-31.0); MEAN CORPUSCULAR HGB CONC 34 g/dl (33.0-37.0); MEAN PLATELET VOLUME 10.8 fl (7.4-10.4); MONO # 0.5 (0.1-0.6); MONO % 4.9 % (1.7-9.3); PLATELET COUNT 395 K/mm3 (130-400); RED BLOOD COUNT 5.11 M/mm3 (4.10-5.30); WHITE BLOOD COUNT 9.8 K/mm3 (4.8-10.8)
[2017-01-25 16:35] LABS: ADJUSTED CALCIUM 9.5 mg/dL (8.4-10.2); ALBUMIN 4.6 gm/dL (3.5-5.0); BILIRUBIN,TOTAL 0.5 mg/dL (0.0-1.0); C-REACTIVE PROTEIN 1.5 mg/dL (0.0-0.9); CREATININE, serum 0.73 mg/dL (0.52-1.25); POTASSIUM 3.6 mmol/L (3.4-5.0); TOTAL PROTEIN 8.3 gm/dL (6.4-8.2)
[2017-01-25] MEDS ORDERED: ULTRAM 50MG TAB50 MG PO (17:26)
[2017-01-25 17:33] VITALS: PULSE 140
== END 2017-01-25 17:32 | disposition home or self-care (01) ==
LOC: COL.ER 15:20
PROVIDERS: Emergency Medicine
DX: R10.11 Right upper quadrant pain (principal); R11.2 Nausea with vomiting, unspecified; G89.29 Other chronic pain; R00.0 Tachycardia, unspecified
CPT/HCPCS: J1170; J2060; J2405; J2550; J7030

== ENCOUNTER 2017-01-30 16:52 | Emergency (ER) | payer BC ==
[~2017-01-30] VITALS: Ht 157.5 cm; Wt 81.8 kg
[2017-01-30 16:58] VITALS: TEMP 100.2
[2017-01-30 19:14] VITALS: BP 135/73; PULSE 105
== END 2017-01-30 19:28 | disposition home or self-care (01) ==
LOC: COL.ER 16:52
DX: G43.909 Migraine, unspecified, not intractable, without status migrainosus (principal); F32.9 Major depressive disorder, single episode, unspecified; F41.9 Anxiety disorder, unspecified; G89.29 Other chronic pain; R10.9 Unspecified abdominal pain; Z90.710 Acquired absence of both cervix and uterus; Z90.49 Acquired absence of other specified parts of digestive tract; Z90.89 Acquired absence of other organs; Z87.891 Personal history of nicotine dependence
CPT/HCPCS: J1200; J1630; J2060; J7030

== ENCOUNTER 2017-01-31 15:26 | Outpatient (CLI) | payer BC ==
[~2017-01-31] VITALS: Ht 157.5 cm; Wt 81.8 kg
[2017-01-31 15:50] VITALS: BP 121/78; PULSE 115; TEMP 99
== END 2017-01-31 18:41 | disposition home or self-care (01) ==
LOC: EUO 15:26
DX: R11.2 Nausea with vomiting, unspecified (principal); R10.11 Right upper quadrant pain
CPT/HCPCS: J1170; J2550; J7120

== ENCOUNTER 2017-02-19 14:42 | Outpatient (CLI) | payer BC ==
[~2017-02-19] VITALS: Ht 157.5 cm; Wt 81.0 kg
[2017-02-19 16:05] VITALS: BP 143/85; PULSE 111; TEMP 98.6
== END 2017-02-19 19:00 | disposition home or self-care (01) ==
LOC: EUO 14:42
DX: R11.2 Nausea with vomiting, unspecified (principal); R10.11 Right upper quadrant pain
CPT/HCPCS: J1170; J2060; J2550; J7120

== ENCOUNTER 2017-02-22 14:59 | Emergency (ER) | payer BC ==
[~2017-02-22] VITALS: Ht 157.5 cm; Wt 81.8 kg
[2017-02-22] MEDS ORDERED: PHENERGAN25 MG RC (16:19)
[2017-02-22 17:42] VITALS: BP 165/82; PULSE 103; TEMP 98.7
[2017-03-24] MEDS ORDERED: PHENERGAN 25 TA25 MG PO (18:19)
[2017-10-05] MEDS ORDERED: PHENERGAN25 MG/ML IM (17:19)
[2018-11-13] MEDS ORDERED: CEPHALEXIN500 M1 PO (10:07)
== END 2017-02-22 17:46 | disposition home or self-care (01) ==
LOC: COL.ER 14:59
DX: G43.909 Migraine, unspecified, not intractable, without status migrainosus (principal); K21.9 Gastro-esophageal reflux disease without esophagitis; Z98.890 Other specified postprocedural states
CPT/HCPCS: J1200; J1630; J2060; J2765; J7030

== ENCOUNTER 2017-03-20 14:14 | Outpatient (CLI) | payer BC ==
[~2017-03-20] VITALS: Ht 157.5 cm; Wt 80.5 kg
[2017-03-20 15:19] VITALS: BP 120/82; PULSE 102; TEMP 98.9
[2017-03-20] MEDS ORDERED: ZOLOFT 100MG100 MG PO (15:29)
== END 2017-03-20 17:43 | disposition home or self-care (01) ==
LOC: EUO 14:14
DX: R11.2 Nausea with vomiting, unspecified (principal)
CPT/HCPCS: J2405; J2550; J7030

== ENCOUNTER 2017-03-28 14:24 | Observation (INO) | payer BC ==
[~2017-03-28] VITALS: Ht 157.5 cm; Wt 86.4 kg
[~2017-03-28 14:24] MED LIST changes: +ZOLOFT 100MG100 MG PO
[2017-03-28] MEDS ORDERED: PHENERGAN25 MG/ML (15:39)
[2017-03-28 15:57] LABS: BASO # 0.1 (0.0-0.2); BASO % 0.7 % (0.0-2.0); EOS # 0.1 (0.0-0.7); EOS % 1.4 % (0-4.0); GRAN # 7.5 (1.4-6.5); HEMATOCRIT 42.7 % (37.0-47.0); LYMPH # 2.1 (1.2-3.4); LYMPH % 20.7 % (20.0-51.0); MEAN CELL VOLUME 88 fl (80.0-100.0); MEAN CORPUSCULAR HEMOGLOBIN 29 pg (27.0-31.0); MEAN CORPUSCULAR HGB CONC 33 g/dl (33.0-37.0); MEAN PLATELET VOLUME 11.6 fl (7.4-10.4); MONO # 0.4 (0.1-0.6); MONO % 3.6 % (1.7-9.3); PLATELET COUNT 338 K/mm3 (130-400); RED BLOOD COUNT 4.85 M/mm3 (4.10-5.30); REDCELL DISTRIBUTION WIDTH-CV 15.1 % (11.5-14.5); WHITE BLOOD COUNT 10.3 K/mm3 (4.8-10.8)
[2017-03-28 16:03] LABS: ADJUSTED CALCIUM 9.2 mg/dL (8.4-10.2); ALBUMIN 4.3 gm/dL (3.5-5.0); BILIRUBIN,TOTAL 0.5 mg/dL (0.0-1.0); C-REACTIVE PROTEIN 2.6 mg/dL (0.0-0.9); CALCIUM 9.4 mg/dL (8.4-10.2); CREATININE, serum 0.75 mg/dL (0.52-1.25); POTASSIUM 3.5 mmol/L (3.4-5.0); TOTAL PROTEIN 7.7 gm/dL (6.4-8.2)
[2017-03-28 18:25] VITALS: BP 138/94; PULSE 102; TEMP 98.4
[2017-03-29 00:02] VITALS: BP 131/71; PULSE 97; TEMP 98.8
[2017-03-29 03:38] VITALS: BP 140/85; PULSE 86; TEMP 98.7
[2017-03-29 07:47] VITALS: BP 131/83; PULSE 87; TEMP 97.8
[2017-03-29 08:11] LABS: ADJUSTED CALCIUM 8.7 mg/dL (8.4-10.2); ALBUMIN 3.4 gm/dL (3.5-5.0); BILIRUBIN,TOTAL 0.6 mg/dL (0.0-1.0); CALCIUM 8.2 mg/dL (8.4-10.2); CREATININE, serum 0.68 mg/dL (0.52-1.25); POTASSIUM 3.9 mmol/L (3.4-5.0); TOTAL PROTEIN 6.3 gm/dL (6.4-8.2)
== END 2017-03-29 12:01 | disposition home or self-care (01) ==
LOC: COL.ER 14:24 → MEDICAL 16:47
PROVIDERS: Family Medicine; Nurse Practitioner
DX: R11.2 Nausea with vomiting, unspecified (principal); F41.9 Anxiety disorder, unspecified; K21.9 Gastro-esophageal reflux disease without esophagitis; G43.909 Migraine, unspecified, not intractable, without status migrainosus; R00.0 Tachycardia, unspecified; R46.81 Obsessive-compulsive behavior; Z90.710 Acquired absence of both cervix and uterus; Z90.49 Acquired absence of other specified parts of digestive tract; Z87.891 Personal history of nicotine dependence
CPT/HCPCS: C9113; G0378; J1200; J1630; J1650; J2550; J2765; J3480; J7030

== ENCOUNTER 2017-05-17 16:22 | Emergency (ER) | payer BC ==
[~2017-05-17] VITALS: Ht 157.5 cm; Wt 79.5 kg
[~2017-05-17 16:22] MED LIST changes: +PHENERGAN25 MG/ML
[2017-05-17 18:28] VITALS: TEMP 99.1
[2017-05-17 18:38] LABS: BASO # 0.1 (0.0-0.2); BASO % 0.7 % (0.0-2.0); EOS # 0.1 (0.0-0.7); EOS % 0.4 % (0-4.0); GRAN # 8.3 (1.4-6.5); GRAN % 71.8 % (42.2-75.2); HEMATOCRIT 43.7 % (37.0-47.0); HEMOGLOBIN 14.5 g/dl (12.5-16.0); LYMPH # 2.6 (1.2-3.4); LYMPH % 22.5 % (20.0-51.0); MEAN CELL VOLUME 90 fl (80.0-100.0); MEAN CORPUSCULAR HEMOGLOBIN 30 pg (27.0-31.0); MEAN CORPUSCULAR HGB CONC 33 g/dl (33.0-37.0); MEAN PLATELET VOLUME 10.9 fl (7.4-10.4); MONO # 0.4 (0.1-0.6); MONO % 3.8 % (1.7-9.3); PLATELET COUNT 326 K/mm3 (130-400); RED BLOOD COUNT 4.88 M/mm3 (4.10-5.30); WHITE BLOOD COUNT 11.5 K/mm3 (4.8-10.8)
[2017-05-17 18:38] LABS: COLLECTION METHOD CLEAN CATCH
[2017-05-17 18:43] LABS: PH 5 (5-8); URINE APPEARANCE Clear; URINE BACTERIA None Seen /hpf; URINE BILIRUBIN Negative (NEGATIVE); URINE BLOOD Negative (NEGATIVE); URINE COLOR Yellow; URINE GLUCOSE Negative (NEGATIVE); URINE KETONE Negative (NEGATIVE); URINE LEUKOCYTE ESTERASE Negative (NEGATIVE); URINE PROTEIN(semi-quant) Negative (NEGATIVE); URINE RBC None Seen /hpf; URINE UROBILINOGEN Negative (NEGATIVE); URINE WBC 0-2 /hpf
[2017-05-17 18:47] LABS: ADJUSTED CALCIUM 9.3 mg/dL (8.4-10.2); ALBUMIN 4.7 gm/dL (3.5-5.0); BILIRUBIN,TOTAL 0.5 mg/dL (0.0-1.0); CALCIUM 9.9 mg/dL (8.4-10.2); CREATININE, serum 0.78 mg/dL (0.52-1.25); POTASSIUM 3.8 mmol/L (3.4-5.0); TOTAL PROTEIN 7.9 gm/dL (6.4-8.2)
[2017-05-17 18:57] VITALS: BP 131/74; PULSE 103
== END 2017-05-17 18:57 | disposition home or self-care (01) ==
LOC: COL.ER 16:22
PROVIDERS: Emergency Medicine
DX: G89.29 Other chronic pain (principal); R10.11 Right upper quadrant pain; Z90.49 Acquired absence of other specified parts of digestive tract; Z98.890 Other specified postprocedural states
CPT/HCPCS: J1170; J2550

== ENCOUNTER 2017-05-20 12:10 | Emergency (ER) | payer BC ==
[~2017-05-20] VITALS: Ht 157.5 cm; Wt 79.5 kg
[2017-05-20 12:15] VITALS: BP 145/87
[2017-05-20] MEDS ORDERED: ZOFRAN INJ4 MG/2 ML IV (12:18)
[2017-05-20 15:02] VITALS: TEMP 98.7
[2017-05-20 16:03] VITALS: PULSE 112
== END 2017-05-20 16:11 | disposition home or self-care (01) ==
LOC: COL.ER 12:10
DX: G89.29 Other chronic pain (principal); R10.9 Unspecified abdominal pain
CPT/HCPCS: J1170; J2405; J2550; J7030

== ENCOUNTER 2017-05-22 15:35 | Outpatient (CLI) | payer BC ==
[~2017-05-22] VITALS: Ht 157.5 cm; Wt 66.8 kg
[~2017-05-22 15:35] MED LIST changes: +ZOFRAN INJ4 MG/2 ML IV
[2017-05-22 16:20] VITALS: BP 115/68; PULSE 82; TEMP 97.8
== END 2017-05-22 18:41 | disposition home or self-care (01) ==
LOC: EUO 15:35
DX: R11.2 Nausea with vomiting, unspecified (principal); R10.11 Right upper quadrant pain
CPT/HCPCS: J1170; J2550; J7030

== ENCOUNTER 2017-05-25 13:15 | Emergency (ER) | payer BC ==
[~2017-05-25] VITALS: Ht 157.5 cm; Wt 77.3 kg
[2017-05-25 13:17] VITALS: TEMP 99.7
[2017-05-25] MEDS ORDERED: PHENERGAN25 MG/ML (13:49)
[2017-05-25 14:06] LABS: BASO # 0.1 (0.0-0.2); BASO % 0.6 % (0.0-2.0); EOS # 0.1 (0.0-0.7); EOS % 0.8 % (0-4.0); HEMATOCRIT 45.8 % (37.0-47.0); HEMOGLOBIN 15.1 g/dl (12.5-16.0); LYMPH # 2.6 (1.2-3.4); LYMPH % 21.1 % (20.0-51.0); MEAN CELL VOLUME 90 fl (80.0-100.0); MEAN CORPUSCULAR HEMOGLOBIN 30 pg (27.0-31.0); MEAN CORPUSCULAR HGB CONC 33 g/dl (33.0-37.0); MEAN PLATELET VOLUME 11.2 fl (7.4-10.4); MONO # 0.3 (0.1-0.6); MONO % 2.8 % (1.7-9.3); PLATELET COUNT 497 K/mm3 (130-400); WHITE BLOOD COUNT 12.1 K/mm3 (4.8-10.8)
[2017-05-25 14:23] LABS: ADJUSTED CALCIUM 9.4 mg/dL (8.4-10.2); ALBUMIN 5.1 gm/dL (3.5-5.0); BILIRUBIN,TOTAL 0.5 mg/dL (0.0-1.0); C-REACTIVE PROTEIN 1.1 mg/dL (0.0-0.9); CALCIUM 10.3 mg/dL (8.4-10.2); CREATININE, serum 0.78 mg/dL (0.52-1.25); POTASSIUM 3.7 mmol/L (3.4-5.0); TOTAL PROTEIN 8.7 gm/dL (6.4-8.2)
[2017-05-25] MEDS ORDERED: PHENERGAN 25 TA25 MG PO (16:04)
[2017-05-25 17:15] VITALS: BP 129/76; PULSE 111
== END 2017-05-25 17:15 | disposition home or self-care (01) ==
LOC: COL.ER 13:15
PROVIDERS: Emergency Medicine
DX: G89.29 Other chronic pain (principal); R10.13 Epigastric pain; R10.11 Right upper quadrant pain; Z90.710 Acquired absence of both cervix and uterus; Z90.89 Acquired absence of other organs; Z90.49 Acquired absence of other specified parts of digestive tract
CPT/HCPCS: J1170; J2060; J2405; J2550; J7030

== ENCOUNTER 2017-06-22 15:22 | Emergency (ER) | payer BC ==
[~2017-06-22] VITALS: Ht 157.5 cm; Wt 77.3 kg
[2017-06-22 15:23] VITALS: TEMP 98.1
[2017-06-22] MEDS ORDERED: COMPAZINE25 MG/SUPP RC (15:48)
[2017-06-22] MEDS ORDERED: PHENERGAN25 MG/ML (15:48)
[2017-06-22 16:20] VITALS: BP 130/96
[2017-06-22 16:45] VITALS: PULSE 117
== END 2017-06-22 16:56 | disposition home or self-care (01) ==
LOC: COL.ER 15:22
DX: G43.909 Migraine, unspecified, not intractable, without status migrainosus (principal)
CPT/HCPCS: J1170; J2550

== ENCOUNTER 2017-06-26 13:50 | Outpatient (CLI) | payer BC ==
[~2017-06-26] VITALS: Ht 157.5 cm; Wt 77.3 kg
[~2017-06-26 13:50] MED LIST changes: +COMPAZINE25 MG/SUPP RC
[2017-06-26 14:14] VITALS: BP 121/98; PULSE 123; TEMP 98.3
== END 2017-06-26 16:00 | disposition home or self-care (01) ==
LOC: EUO 13:50
DX: G43.A1 Cyclical vomiting, in migraine, intractable (principal); R10.11 Right upper quadrant pain
CPT/HCPCS: J1170; J2550; J7030

== ENCOUNTER 2017-07-15 16:17 | Emergency (ER) | payer BC ==
[~2017-07-15] VITALS: Ht 162.6 cm; Wt 79.5 kg
[2017-07-15 17:26] LABS: BASO # 0.1 (0.0-0.2); BASO % 0.9 % (0.0-2.0); EOS % 0.3 % (0-4.0); GRAN # 8.1 (1.4-6.5); GRAN % 69.3 % (42.2-75.2); HEMATOCRIT 45.6 % (37.0-47.0); HEMOGLOBIN 15.5 g/dl (12.5-16.0); LYMPH # 2.9 (1.2-3.4); LYMPH % 25.1 % (20.0-51.0); MEAN CELL VOLUME 89 fl (80.0-100.0); MEAN CORPUSCULAR HEMOGLOBIN 30 pg (27.0-31.0); MEAN CORPUSCULAR HGB CONC 34 g/dl (33.0-37.0); MEAN PLATELET VOLUME 11.3 fl (7.4-10.4); MONO # 0.4 (0.1-0.6); MONO % 3.6 % (1.7-9.3); PLATELET COUNT 393 K/mm3 (130-400); RED BLOOD COUNT 5.14 M/mm3 (4.10-5.30); REDCELL DISTRIBUTION WIDTH-CV 13.2 % (11.5-14.5)
[2017-07-15 17:35] LABS: ALANINE AMINOTRANSFERASE 35 U/L (9-52); ALBUMIN 5.2 gm/dL (3.5-5.0); ALKALINE PHOSPHATASE 115 U/L (50-136); ANION GAP 14 mmol/L (7-16); AST,SGOT 26 U/L (15-37); BILIRUBIN,TOTAL 0.4 mg/dL (0.0-1.0); BLOOD UREA NITROGEN 6 mg/dL (7-17); CALCIUM 10.7 mg/dL (8.4-10.2); CARBON DIOXIDE 23 mmol/L (22-30); CHLORIDE 106 mmol/L (98-107); GLUCOSE 105 mg/dL (74-106); LIPASE 91 U/L (23-300); SODIUM 144 mmol/L (137-145); TOTAL PROTEIN 8.7 gm/dL (6.4-8.2)
[2017-07-15 17:37] LABS: ACETAMINOPHEN < 10 ug/mL (10-30); ALCOHOL(ethanol),MEDICAL < 10 mg/dL; SALICYLATE < 1.0 mg/dL
[2017-07-15 17:50] LABS: TROPONIN-I < 0.012 ng/mL (0.000-0.034)
[2017-07-15 21:13] VITALS: BP 137/99; PULSE 127
== END 2017-07-15 21:16 | disposition home or self-care (01) ==
LOC: COL.ER 16:17
PROVIDERS: Emergency Medicine
DX: R10.84 Generalized abdominal pain (principal); R07.9 Chest pain, unspecified
CPT/HCPCS: J1630; J2060; J2270; J2405; J7030

== ENCOUNTER 2017-07-16 13:03 | Emergency (ER) | payer BC ==
[~2017-07-16] VITALS: Ht 162.6 cm; Wt 77.3 kg
[2017-07-16 13:09] VITALS: BP 179/86; TEMP 98.8
[2017-07-16 16:03] VITALS: PULSE 110
== END 2017-07-16 16:05 | disposition home or self-care (01) ==
LOC: COL.ER 13:03
DX: G89.29 Other chronic pain (principal); R10.11 Right upper quadrant pain
CPT/HCPCS: J2060; J2270; J2360; J2405; J7030

== ENCOUNTER 2017-07-23 12:47 | Emergency (ER) | payer BC ==
[~2017-07-23] VITALS: Ht 157.5 cm; Wt 77.3 kg
[2017-07-23 12:51] VITALS: BP 148/84; TEMP 99.4
[2017-07-23 16:26] LABS: BASO # 0.1 (0.0-0.2); BASO % 0.8 % (0.0-2.0); EOS % 0.1 % (0-4.0); GRAN # 9.5 (1.4-6.5); GRAN % 70.8 % (42.2-75.2); HEMATOCRIT 46.2 % (37.0-47.0); HEMOGLOBIN 15.6 g/dl (12.5-16.0); LYMPH # 3.3 (1.2-3.4); LYMPH % 24.7 % (20.0-51.0); MEAN CELL VOLUME 89 fl (80.0-100.0); MEAN CORPUSCULAR HEMOGLOBIN 30 pg (27.0-31.0); MEAN CORPUSCULAR HGB CONC 34 g/dl (33.0-37.0); MEAN PLATELET VOLUME 11.1 fl (7.4-10.4); MONO # 0.4 (0.1-0.6); MONO % 3.2 % (1.7-9.3); PLATELET COUNT 438 K/mm3 (130-400); RED BLOOD COUNT 5.19 M/mm3 (4.10-5.30); REDCELL DISTRIBUTION WIDTH-CV 13.2 % (11.5-14.5)
[2017-07-23 16:38] LABS: ALBUMIN 5.4 gm/dL (3.5-5.0); BILIRUBIN,TOTAL 0.5 mg/dL (0.0-1.0); CALCIUM 10.4 mg/dL (8.4-10.2); CREATININE, serum 0.84 mg/dL (0.52-1.25); POTASSIUM 3.5 mmol/L (3.4-5.0); TOTAL PROTEIN 8.7 gm/dL (6.4-8.2)
[2017-07-23 17:39] LABS: COLLECTION METHOD CLEAN CATCH
[2017-07-23 17:45] LABS: MUCOUS Present /lpf; PH 5 (5-8); URINE APPEARANCE Clear; URINE BACTERIA Rare /hpf; URINE BILIRUBIN Negative (NEGATIVE); URINE BLOOD Negative (NEGATIVE); URINE COLOR Yellow; URINE GLUCOSE Negative (NEGATIVE); URINE KETONE Negative (NEGATIVE); URINE LEUKOCYTE ESTERASE Negative (NEGATIVE); URINE NITRATE Negative (NEGATIVE); URINE PROTEIN(semi-quant) Negative (NEGATIVE); URINE RBC None Seen /hpf; URINE UROBILINOGEN Negative (NEGATIVE)
[2017-07-23 18:23] VITALS: PULSE 102
== END 2017-07-23 18:24 | disposition home or self-care (01) ==
LOC: COL.ER 12:47
PROVIDERS: Physician Assistant
DX: G89.29 Other chronic pain (principal); R10.10 Upper abdominal pain, unspecified
CPT/HCPCS: J1170; J1200; J1630; J2405; J7030

== ENCOUNTER 2017-08-05 16:53 | Emergency (ER) | payer BC ==
[~2017-08-05] VITALS: Ht 157.5 cm; Wt 77.3 kg
[2017-08-05 16:55] VITALS: TEMP 98.1
[2017-08-05 18:16] LABS: COLLECTION METHOD CLEAN CATCH
[2017-08-05 18:24] LABS: BASO # 0.1 (0.0-0.2); BASO % 0.8 % (0.0-2.0); EOS # 0.1 (0.0-0.7); GRAN # 6.9 (1.4-6.5); GRAN % 68.7 % (42.2-75.2); HEMATOCRIT 41.3 % (37.0-47.0); HEMOGLOBIN 14.1 g/dl (12.5-16.0); LYMPH # 2.5 (1.2-3.4); LYMPH % 24.9 % (20.0-51.0); MEAN CELL VOLUME 90 fl (80.0-100.0); MEAN CORPUSCULAR HEMOGLOBIN 31 pg (27.0-31.0); MEAN CORPUSCULAR HGB CONC 34 g/dl (33.0-37.0); MEAN PLATELET VOLUME 11.3 fl (7.4-10.4); MONO # 0.4 (0.1-0.6); MONO % 4.2 % (1.7-9.3); PLATELET COUNT 265 K/mm3 (130-400); RED BLOOD COUNT 4.59 M/mm3 (4.10-5.30); REDCELL DISTRIBUTION WIDTH-CV 13.2 % (11.5-14.5)
[2017-08-05 18:26] LABS: PH 6 (5-8); URINE APPEARANCE Cloudy; URINE BILIRUBIN Negative (NEGATIVE); URINE BLOOD Negative (NEGATIVE); URINE GLUCOSE Negative (NEGATIVE); URINE KETONE Negative (NEGATIVE); URINE LEUKOCYTE ESTERASE Negative (NEGATIVE); URINE NITRATE Negative (NEGATIVE); URINE PROTEIN(semi-quant) Negative (NEGATIVE); URINE UROBILINOGEN Negative (NEGATIVE)
[2017-08-05 18:32] LABS: ALBUMIN 4.5 gm/dL (3.5-5.0); BILIRUBIN,TOTAL 0.4 mg/dL (0.0-1.0); CALCIUM 9.3 mg/dL (8.4-10.2); CREATININE, serum 0.63 mg/dL (0.52-1.25); POTASSIUM 3.5 mmol/L (3.4-5.0); TOTAL PROTEIN 7.4 gm/dL (6.4-8.2)
[2017-08-05 18:35] LABS: URINE COLOR Yellow
[2017-08-05 18:43] LABS: C-REACTIVE PROTEIN 0.5 mg/dL (0.0-0.9)
[2017-08-05 18:51] LABS: SQUAMOUS EPITHELIAL 0-2 /hpf; URINE RBC None Seen /hpf
[2017-08-05 19:23] VITALS: BP 145/98; PULSE 123
== END 2017-08-05 19:25 | disposition home or self-care (01) ==
LOC: COL.ER 16:53
PROVIDERS: Emergency Medicine
DX: R10.9 Unspecified abdominal pain (principal); G89.29 Other chronic pain; F17.210 Nicotine dependence, cigarettes, uncomplicated; Z90.49 Acquired absence of other specified parts of digestive tract
CPT/HCPCS: J1170; J2405; J7030

== ENCOUNTER 2017-08-06 14:52 | Emergency (ER) | payer BC ==
[~2017-08-06] VITALS: Ht 157.5 cm; Wt 76.4 kg
[2017-08-06 15:08] VITALS: TEMP 99.7
[2017-08-06 15:49] LABS: BASO # 0.1 (0.0-0.2); BASO % 0.7 % (0.0-2.0); EOS # 0.1 (0.0-0.7); EOS % 0.6 % (0-4.0); GRAN # 8.1 (1.4-6.5); GRAN % 71.4 % (42.2-75.2); LYMPH # 2.6 (1.2-3.4); MEAN CELL VOLUME 90 fl (80.0-100.0); MEAN CORPUSCULAR HEMOGLOBIN 31 pg (27.0-31.0); MEAN CORPUSCULAR HGB CONC 34 g/dl (33.0-37.0); MEAN PLATELET VOLUME 11.6 fl (7.4-10.4); MONO # 0.4 (0.1-0.6); MONO % 3.9 % (1.7-9.3); PLATELET COUNT 254 K/mm3 (130-400); REDCELL DISTRIBUTION WIDTH-CV 13.2 % (11.5-14.5)
[2017-08-06 16:39] LABS: ALBUMIN 4.3 gm/dL (3.5-5.0); BILIRUBIN,TOTAL 0.4 mg/dL (0.0-1.0); CALCIUM 9.6 mg/dL (8.4-10.2); CREATININE, serum 0.67 mg/dL (0.52-1.25); POTASSIUM 3.4 mmol/L (3.4-5.0); TOTAL PROTEIN 7.3 gm/dL (6.4-8.2)
[2017-08-06 16:59] VITALS: BP 132/82; PULSE 106
== END 2017-08-06 17:00 | disposition home or self-care (01) ==
LOC: COL.ER 14:52
PROVIDERS: Family Medicine
DX: G89.29 Other chronic pain (principal); R10.9 Unspecified abdominal pain
CPT/HCPCS: J1170; J2550; J7030

== ENCOUNTER 2017-08-09 16:37 | Emergency (ER) | payer BC ==
[~2017-08-09] VITALS: Ht 157.5 cm; Wt 77.3 kg
[2017-08-09 16:44] VITALS: BP 171/79; TEMP 99.1
[2017-08-09 19:06] LABS: BASO # 0.1 (0.0-0.2); BASO % 0.7 % (0.0-2.0); EOS # 0.1 (0.0-0.7); EOS % 0.9 % (0-4.0); GRAN # 9.2 (1.4-6.5); GRAN % 72.1 % (42.2-75.2); HEMATOCRIT 43.7 % (37.0-47.0); HEMOGLOBIN 14.8 g/dl (12.5-16.0); LYMPH # 2.9 (1.2-3.4); LYMPH % 22.4 % (20.0-51.0); MEAN CELL VOLUME 90 fl (80.0-100.0); MEAN CORPUSCULAR HEMOGLOBIN 31 pg (27.0-31.0); MEAN CORPUSCULAR HGB CONC 34 g/dl (33.0-37.0); MEAN PLATELET VOLUME 11.4 fl (7.4-10.4); MONO # 0.4 (0.1-0.6); MONO % 3.4 % (1.7-9.3); PLATELET COUNT 273 K/mm3 (130-400); RED BLOOD COUNT 4.86 M/mm3 (4.10-5.30); REDCELL DISTRIBUTION WIDTH-CV 13.3 % (11.5-14.5)
[2017-08-09 19:14] LABS: ALANINE AMINOTRANSFERASE 22 U/L (9-52); ALBUMIN 4.4 gm/dL (3.5-5.0); ALKALINE PHOSPHATASE 107 U/L (50-136); ANION GAP 7 mmol/L (7-16); AST,SGOT 21 U/L (15-37); BILIRUBIN,TOTAL 0.5 mg/dL (0.0-1.0); BLOOD UREA NITROGEN 7 mg/dL (7-17); C-REACTIVE PROTEIN 1.9 mg/dL (0.0-0.9); CALCIUM 9.3 mg/dL (8.4-10.2); CARBON DIOXIDE 25 mmol/L (22-30); CHLORIDE 107 mmol/L (98-107); CREATININE, serum 0.64 mg/dL (0.52-1.25); GLUCOSE 96 mg/dL (74-106); LIPASE 76 U/L (23-300); POTASSIUM 3.5 mmol/L (3.4-5.0); SODIUM 139 mmol/L (137-145); TOTAL PROTEIN 7.5 gm/dL (6.4-8.2)
[2017-08-09 19:23] LABS: TROPONIN-I < 0.012 ng/mL (0.000-0.034)
[2017-08-09 20:12] LABS: COLLECTION METHOD CLEAN CATCH
[2017-08-09 20:19] LABS: PH 6 (5-8); URINE APPEARANCE Clear; URINE BACTERIA Rare /hpf; URINE BILIRUBIN Negative (NEGATIVE); URINE BLOOD Negative (NEGATIVE); URINE COLOR Yellow; URINE GLUCOSE Negative (NEGATIVE); URINE KETONE Negative (NEGATIVE); URINE LEUKOCYTE ESTERASE Negative (NEGATIVE); URINE NITRATE Negative (NEGATIVE); URINE PROTEIN(semi-quant) Negative (NEGATIVE); URINE RBC 0-2 /hpf; URINE UROBILINOGEN Negative (NEGATIVE)
[2017-08-09 20:58] VITALS: PULSE 123
== END 2017-08-09 21:00 | disposition home or self-care (01) ==
LOC: COL.ER 16:37
PROVIDERS: Emergency Medicine
DX: R10.10 Upper abdominal pain, unspecified (principal); G89.29 Other chronic pain
CPT/HCPCS: J1170; J2060; J2405; J7030

== ENCOUNTER 2017-08-12 17:55 | Outpatient (CLI) | payer BC ==
[~2017-08-12] VITALS: Ht 157.5 cm; Wt 75.0 kg
[2017-08-12 18:00] VITALS: BP 127/85; PULSE 108; TEMP 98.4
== END 2017-08-12 21:05 | disposition home or self-care (01) ==
LOC: EUO 17:55
DX: R10.9 Unspecified abdominal pain (principal); R11.10 Vomiting, unspecified
CPT/HCPCS: J1170; J2550; J7030

== ENCOUNTER 2017-09-09 16:01 | Emergency (ER) | payer BC ==
[~2017-09-09] VITALS: Ht 157.5 cm; Wt 77.3 kg
[2017-09-09] MEDS ORDERED: ROXICODONE 55 MG/TAB PO (17:31)
[2017-09-09] MEDS ORDERED: VOLTAREN 75 DR75 MG PO (17:31)
[2017-09-09 18:22] LABS: BASO # 0.1 (0.0-0.2); BASO % 0.7 % (0.0-2.0); EOS # 0.2 (0.0-0.7); EOS % 1.6 % (0-4.0); GRAN # 6.5 (1.4-6.5); GRAN % 65.7 % (42.2-75.2); HEMATOCRIT 40.6 % (37.0-47.0); HEMOGLOBIN 13.9 g/dl (12.5-16.0); LYMPH # 2.8 (1.2-3.4); LYMPH % 27.8 % (20.0-51.0); MEAN CELL VOLUME 89 fl (80.0-100.0); MEAN CORPUSCULAR HEMOGLOBIN 31 pg (27.0-31.0); MEAN CORPUSCULAR HGB CONC 34 g/dl (33.0-37.0); MEAN PLATELET VOLUME 11.2 fl (7.4-10.4); MONO # 0.4 (0.1-0.6); MONO % 3.7 % (1.7-9.3); PLATELET COUNT 322 K/mm3 (130-400); RED BLOOD COUNT 4.54 M/mm3 (4.10-5.30); REDCELL DISTRIBUTION WIDTH-CV 13.2 % (11.5-14.5)
[2017-09-09 18:25] LABS: BILIRUBIN,TOTAL 0.3 mg/dL (0.0-1.0); CALCIUM 9.2 mg/dL (8.4-10.2); CREATININE, serum 0.64 mg/dL (0.52-1.25); POTASSIUM 3.3 mmol/L (3.4-5.0); TOTAL PROTEIN 7.2 gm/dL (6.4-8.2)
[2017-09-09 19:18] VITALS: BP 154/94; PULSE 114; TEMP 98.5
== END 2017-09-09 19:19 | disposition home or self-care (01) ==
LOC: COL.ER 16:01
PROVIDERS: Nurse Practitioner
DX: G89.29 Other chronic pain (principal); R10.11 Right upper quadrant pain; F32.9 Major depressive disorder, single episode, unspecified; F41.9 Anxiety disorder, unspecified; K21.9 Gastro-esophageal reflux disease without esophagitis; G43.909 Migraine, unspecified, not intractable, without status migrainosus; Z87.19 Personal history of other diseases of the digestive system; Z87.891 Personal history of nicotine dependence; Z90.710 Acquired absence of both cervix and uterus; Z90.49 Acquired absence of other specified parts of digestive tract; Z98.890 Other specified postprocedural states
CPT/HCPCS: J2060; J2270; J2405; J7030

== ENCOUNTER 2017-09-10 12:57 | Outpatient (CLI) | payer BC ==
[~2017-09-10] VITALS: Ht 157.5 cm; Wt 77.3 kg
[~2017-09-10 12:57] MED LIST changes: +VOLTAREN 75 DR75 MG PO
== END 2017-09-10 16:23 | disposition home or self-care (01) ==
LOC: EUO 12:57
DX: R11.0 Nausea (principal); R10.9 Unspecified abdominal pain
CPT/HCPCS: J2550; J7030

== ENCOUNTER 2017-09-11 18:02 | Emergency (ER) | payer BC ==
[~2017-09-11] VITALS: Ht 157.5 cm; Wt 77.3 kg
[2017-09-11 18:05] VITALS: BP 179/81; TEMP 98.7
[2017-09-11 19:00] LABS: ALBUMIN 4.3 gm/dL (3.5-5.0); BILIRUBIN,TOTAL 0.4 mg/dL (0.0-1.0); CALCIUM 9.5 mg/dL (8.4-10.2); CREATININE, serum 0.71 mg/dL (0.52-1.25); POTASSIUM 3.9 mmol/L (3.4-5.0); TOTAL PROTEIN 7.4 gm/dL (6.4-8.2)
[2017-09-11 19:17] LABS: BASO # 0.1 (0.0-0.2); BASO % 0.9 % (0.0-2.0); EOS # 0.2 (0.0-0.7); EOS % 2.2 % (0-4.0); GRAN # 5.6 (1.4-6.5); GRAN % 60.2 % (42.2-75.2); HEMATOCRIT 39.5 % (37.0-47.0); HEMOGLOBIN 13.4 g/dl (12.5-16.0); LYMPH % 31.5 % (20.0-51.0); MEAN CELL VOLUME 90 fl (80.0-100.0); MEAN CORPUSCULAR HEMOGLOBIN 31 pg (27.0-31.0); MEAN CORPUSCULAR HGB CONC 34 g/dl (33.0-37.0); MEAN PLATELET VOLUME 11.3 fl (7.4-10.4); MONO # 0.4 (0.1-0.6); MONO % 4.5 % (1.7-9.3); PLATELET COUNT 320 K/mm3 (130-400); RED BLOOD COUNT 4.37 M/mm3 (4.10-5.30); REDCELL DISTRIBUTION WIDTH-CV 13.1 % (11.5-14.5)
[2017-09-11 21:52] VITALS: PULSE 90
== END 2017-09-11 21:54 | disposition home or self-care (01) ==
LOC: COL.ER 18:02
PROVIDERS: Family Medicine
DX: G89.29 Other chronic pain (principal); R10.9 Unspecified abdominal pain; Z90.89 Acquired absence of other organs; Z90.710 Acquired absence of both cervix and uterus
CPT/HCPCS: J1200; J2060; J2270; J2405; J2550; J7030

== ENCOUNTER → 2017-09-13 | Emergency (ER) | payer BC ==
[~2017-09-13] VITALS: Ht 157.5 cm; Wt 79.7 kg
[2017-09-13 13:15] VITALS: TEMP 101.4
[2017-09-13 16:31] LABS: BASO # 0.1 (0.0-0.2); BASO % 0.5 % (0.0-2.0); EOS # 0.1 (0.0-0.7); EOS % 0.5 % (0-4.0); GRAN # 11.3 (1.4-6.5); GRAN % 77.4 % (42.2-75.2); HEMATOCRIT 43.6 % (37.0-47.0); LYMPH # 2.7 (1.2-3.4); LYMPH % 18.2 % (20.0-51.0); MEAN CELL VOLUME 89 fl (80.0-100.0); MEAN CORPUSCULAR HEMOGLOBIN 31 pg (27.0-31.0); MEAN CORPUSCULAR HGB CONC 34 g/dl (33.0-37.0); MEAN PLATELET VOLUME 11.2 fl (7.4-10.4); MONO # 0.4 (0.1-0.6); MONO % 2.8 % (1.7-9.3); PLATELET COUNT 376 K/mm3 (130-400); RED BLOOD COUNT 4.88 M/mm3 (4.10-5.30); REDCELL DISTRIBUTION WIDTH-CV 13.2 % (11.5-14.5)
[2017-09-13 16:58] LABS: BILIRUBIN,TOTAL 0.4 mg/dL (0.0-1.0); C-REACTIVE PROTEIN 1.9 mg/dL (0.0-0.9); CALCIUM 9.6 mg/dL (8.4-10.2); CREATININE, serum 0.68 mg/dL (0.52-1.25); POTASSIUM 3.6 mmol/L (3.4-5.0); TOTAL PROTEIN 7.4 gm/dL (6.4-8.2)
[2017-09-13 17:43] LABS: COLLECTION METHOD CLEAN CATCH
[2017-09-13 17:58] LABS: PH 6 (5-8); URINE APPEARANCE Hazy; URINE BACTERIA None Seen /hpf; URINE BILIRUBIN Negative (NEGATIVE); URINE BLOOD Negative (NEGATIVE); URINE COLOR Yellow; URINE GLUCOSE Negative (NEGATIVE); URINE KETONE Negative (NEGATIVE); URINE LEUKOCYTE ESTERASE Negative (NEGATIVE); URINE NITRATE Negative (NEGATIVE); URINE PROTEIN(semi-quant) Negative (NEGATIVE); URINE RBC 0-2 /hpf; URINE UROBILINOGEN Negative (NEGATIVE)
[2017-09-13 18:30] VITALS: BP 142/106; PULSE 104
== END ==
LOC: COL.ER 13:04
PROVIDERS: Emergency Medicine
DX: R10.10 Upper abdominal pain, unspecified (principal); R11.2 Nausea with vomiting, unspecified; R50.9 Fever, unspecified; Z90.89 Acquired absence of other organs; Z90.49 Acquired absence of other specified parts of digestive tract; Z90.710 Acquired absence of both cervix and uterus
CPT/HCPCS: J2270; J2405; J2550; J7030; Q9967

== ENCOUNTER 2017-09-17 19:15 | Emergency (ER) | payer BC ==
[~2017-09-17] VITALS: Ht 157.5 cm; Wt 79.5 kg
[2017-09-17 20:38] VITALS: TEMP 100
[2017-09-17 20:45] LABS: BASO # 0.1 (0.0-0.2); BASO % 0.5 % (0.0-2.0); EOS # 0.2 (0.0-0.7); EOS % 1.2 % (0-4.0); GRAN # 9.4 (1.4-6.5); GRAN % 72.8 % (42.2-75.2); HEMOGLOBIN 14.7 g/dl (12.5-16.0); LYMPH # 2.8 (1.2-3.4); LYMPH % 21.9 % (20.0-51.0); MEAN CELL VOLUME 88 fl (80.0-100.0); MEAN CORPUSCULAR HEMOGLOBIN 31 pg (27.0-31.0); MEAN CORPUSCULAR HGB CONC 35 g/dl (33.0-37.0); MEAN PLATELET VOLUME 11.2 fl (7.4-10.4); MONO # 0.4 (0.1-0.6); MONO % 2.8 % (1.7-9.3); PLATELET COUNT 376 K/mm3 (130-400); RED BLOOD COUNT 4.75 M/mm3 (4.10-5.30); REDCELL DISTRIBUTION WIDTH-CV 13.7 % (11.5-14.5)
[2017-09-17 20:49] LABS: ALBUMIN 3.9 gm/dL (3.5-5.0); BILIRUBIN,TOTAL 0.5 mg/dL (0.0-1.0); CALCIUM 8.6 mg/dL (8.4-10.2); CREATININE, serum 0.55 mg/dL (0.52-1.25); POTASSIUM 3.3 mmol/L (3.4-5.0); TOTAL PROTEIN 7.6 gm/dL (6.4-8.2)
[2017-09-17] MEDS ORDERED: COMPAZINE IJ (21:12)
[2017-09-17 22:20] VITALS: BP 148/102; PULSE 128
== END 2017-09-17 22:20 | disposition home or self-care (01) ==
LOC: COL.ER 19:15
PROVIDERS: Emergency Medicine
DX: G89.29 Other chronic pain (principal); R10.9 Unspecified abdominal pain; K21.9 Gastro-esophageal reflux disease without esophagitis
CPT/HCPCS: J0500; J0780; J1200; J2270; J2765; J7030

== ENCOUNTER 2017-10-05 17:10 | Emergency (ER) | payer BC ==
[~2017-10-05] VITALS: Ht 157.5 cm; Wt 79.5 kg
[~2017-10-05 17:10] MED LIST changes: +COMPAZINE IJ
[2017-10-05 17:13] VITALS: BP 134/70; TEMP 99.2
[2017-10-05] MEDS ORDERED: PHENERGAN25 MG/ML (17:19)
[2017-10-05 18:50] VITALS: PULSE 130
== END 2017-10-05 18:57 | disposition home or self-care (01) ==
LOC: COL.ER 17:10
DX: K83.4 Spasm of sphincter of Oddi (principal); G89.29 Other chronic pain; G43.909 Migraine, unspecified, not intractable, without status migrainosus; F42.9 Obsessive-compulsive disorder, unspecified; Z90.89 Acquired absence of other organs; Z90.49 Acquired absence of other specified parts of digestive tract; Z90.710 Acquired absence of both cervix and uterus
CPT/HCPCS: J0780; J2060; J2765

== ENCOUNTER 2017-10-09 15:18 | Emergency (ER) | payer BC ==
[~2017-10-09] VITALS: Ht 157.5 cm; Wt 77.3 kg
[2017-10-09 15:24] VITALS: BP 148/101; TEMP 98.9
[2017-10-09 16:19] LABS: COLLECTION METHOD CLEAN CATCH
[2017-10-09 16:20] LABS: BASO % 0.5 % (0.0-2.0); EOS # 0.2 (0.0-0.7); EOS % 3.6 % (0-4.0); GRAN # 4.3 (1.4-6.5); GRAN % 65.3 % (42.2-75.2); HEMOGLOBIN 13.6 g/dl (12.5-16.0); LYMPH # 1.6 (1.2-3.4); LYMPH % 24.4 % (20.0-51.0); MEAN CELL VOLUME 89 fl (80.0-100.0); MEAN CORPUSCULAR HEMOGLOBIN 30 pg (27.0-31.0); MEAN CORPUSCULAR HGB CONC 34 g/dl (33.0-37.0); MEAN PLATELET VOLUME 10.9 fl (7.4-10.4); MONO # 0.4 (0.1-0.6); MONO % 5.9 % (1.7-9.3); PLATELET COUNT 301 K/mm3 (130-400); RED BLOOD COUNT 4.52 M/mm3 (4.10-5.30); REDCELL DISTRIBUTION WIDTH-CV 13.7 % (11.5-14.5)
[2017-10-09 16:21] LABS: ALBUMIN 4.2 gm/dL (3.5-5.0); BILIRUBIN,TOTAL 0.3 mg/dL (0.0-1.0); CALCIUM 9.1 mg/dL (8.4-10.2); CREATININE, serum 0.57 mg/dL (0.52-1.25); TOTAL PROTEIN 8.2 gm/dL (6.4-8.2)
[2017-10-09 16:26] LABS: PH 5 (5-8); URINE APPEARANCE Clear; URINE BACTERIA Rare /hpf; URINE BILIRUBIN Negative (NEGATIVE); URINE BLOOD Negative (NEGATIVE); URINE COLOR Yellow; URINE GLUCOSE Negative (NEGATIVE); URINE KETONE Negative (NEGATIVE); URINE LEUKOCYTE ESTERASE Negative (NEGATIVE); URINE NITRATE Negative (NEGATIVE); URINE PROTEIN(semi-quant) Negative (NEGATIVE); URINE RBC 0-2 /hpf; URINE UROBILINOGEN Negative (NEGATIVE); URINE WBC 0-2 /hpf
[2017-10-09 16:53] VITALS: PULSE 96
[2017-10-10] MEDS ORDERED: ZOFRAN ODT8 MG PO (17:39)
== END 2017-10-09 16:54 | disposition home or self-care (01) ==
LOC: COL.ER 15:18
PROVIDERS: Emergency Medicine
DX: E87.6 Hypokalemia (principal); R10.11 Right upper quadrant pain; R11.2 Nausea with vomiting, unspecified; F42.9 Obsessive-compulsive disorder, unspecified; Z87.891 Personal history of nicotine dependence; Z90.710 Acquired absence of both cervix and uterus; Z90.49 Acquired absence of other specified parts of digestive tract; Z90.89 Acquired absence of other organs
CPT/HCPCS: J1630

== ENCOUNTER 2017-10-10 16:20 | Emergency (ER) | payer BC ==
[~2017-10-10] VITALS: Ht 157.5 cm; Wt 77.3 kg
[2017-10-10 16:31] VITALS: TEMP 98.2
[2017-10-10] MEDS ORDERED: ZOFRAN ODT8 MG PO (17:39)
[2017-10-10 17:47] VITALS: BP 152/86; PULSE 110
== END 2017-10-10 17:48 | disposition home or self-care (01) ==
LOC: COL.ER 16:20
DX: G89.29 Other chronic pain (principal); R10.11 Right upper quadrant pain
CPT/HCPCS: J0500; J1630

== ENCOUNTER 2017-10-12 17:43 | Emergency (ER) | payer BC ==
[~2017-10-12] VITALS: Ht 157.5 cm; Wt 77.3 kg
[2017-10-12 17:47] VITALS: TEMP 99.8
[2017-10-12] MEDS ORDERED: DAZIDOX10 MG PO (17:50)
[2017-10-12 18:30] LABS: COLLECTION METHOD CLEAN CATCH
[2017-10-12 18:36] LABS: BASO # 0.1 (0.0-0.2); EOS # 0.5 (0.0-0.7); EOS % 5.2 % (0-4.0); GRAN # 5.8 (1.4-6.5); GRAN % 55.1 % (42.2-75.2); HEMATOCRIT 43.8 % (37.0-47.0); HEMOGLOBIN 14.7 g/dl (12.5-16.0); LYMPH # 3.6 (1.2-3.4); LYMPH % 34.4 % (20.0-51.0); MEAN CELL VOLUME 91 fl (80.0-100.0); MEAN CORPUSCULAR HEMOGLOBIN 31 pg (27.0-31.0); MEAN CORPUSCULAR HGB CONC 34 g/dl (33.0-37.0); MEAN PLATELET VOLUME 10.8 fl (7.4-10.4); MONO # 0.4 (0.1-0.6); MONO % 3.7 % (1.7-9.3); PLATELET COUNT 428 K/mm3 (130-400); RED BLOOD COUNT 4.79 M/mm3 (4.10-5.30); REDCELL DISTRIBUTION WIDTH-CV 13.9 % (11.5-14.5)
[2017-10-12 18:37] LABS: MUCOUS Present /lpf; PH 5 (5-8); URINE APPEARANCE Hazy; URINE BACTERIA None Seen /hpf; URINE BILIRUBIN Negative (NEGATIVE); URINE BLOOD Negative (NEGATIVE); URINE COLOR Yellow; URINE GLUCOSE Negative (NEGATIVE); URINE KETONE Negative (NEGATIVE); URINE LEUKOCYTE ESTERASE Negative (NEGATIVE); URINE NITRATE Negative (NEGATIVE); URINE PROTEIN(semi-quant) Negative (NEGATIVE); URINE RBC 0-2 /hpf; URINE UROBILINOGEN Negative (NEGATIVE)
[2017-10-12 18:47] LABS: ALBUMIN 4.2 gm/dL (3.5-5.0); BILIRUBIN,TOTAL 0.4 mg/dL (0.0-1.0); C-REACTIVE PROTEIN 1.1 mg/dL (0.0-0.9); CALCIUM 9.6 mg/dL (8.4-10.2); CREATININE, serum 0.82 mg/dL (0.52-1.25); POTASSIUM 3.4 mmol/L (3.4-5.0); TOTAL PROTEIN 8.5 gm/dL (6.4-8.2)
[2017-10-12 20:31] VITALS: BP 131/90; PULSE 112
== END 2017-10-12 20:31 | disposition home or self-care (01) ==
LOC: COL.ER 17:43
PROVIDERS: Emergency Medicine
DX: G89.29 Other chronic pain (principal); R10.11 Right upper quadrant pain; R11.2 Nausea with vomiting, unspecified; Z87.19 Personal history of other diseases of the digestive system
CPT/HCPCS: J1170; J2270; J2405; J3230; J7030

== ENCOUNTER 2017-10-14 14:06 | Outpatient (CLI) | payer BC ==
[2017-10-14 15:03] VITALS: BP 146/98; PULSE 122; TEMP 99.4
[2017-10-14] MEDS ORDERED: ZOFRAN ODT8 MG PO (15:12)
== END 2017-10-14 16:45 | disposition home or self-care (01) ==
LOC: EUO 14:06
DX: R11.10 Vomiting, unspecified (principal); R10.9 Unspecified abdominal pain
CPT/HCPCS: J2550; J7030

== ENCOUNTER 2017-10-14 16:45 | Emergency (ER) | payer BC ==
[~2017-10-14] VITALS: Ht 157.5 cm; Wt 77.3 kg
[2017-10-14 16:48] VITALS: TEMP 99.9
[2017-10-14 19:25] VITALS: BP 141/85; PULSE 114
== END 2017-10-14 19:25 | disposition home or self-care (01) ==
LOC: COL.ER 16:45
DX: R10.11 Right upper quadrant pain (principal); G43.909 Migraine, unspecified, not intractable, without status migrainosus; F32.9 Major depressive disorder, single episode, unspecified; F41.9 Anxiety disorder, unspecified; Z90.49 Acquired absence of other specified parts of digestive tract; Z87.891 Personal history of nicotine dependence; Z90.710 Acquired absence of both cervix and uterus
CPT/HCPCS: J2405; J2550

== ENCOUNTER 2017-11-04 13:11 | Emergency (ER) | payer BC ==
[~2017-11-04] VITALS: Ht 157.5 cm; Wt 77.5 kg
[2017-11-04 13:22] VITALS: BP 153/87; TEMP 98.8
[2017-11-04 14:11] LABS: BASO # 0.1 (0.0-0.2); BASO % 0.8 % (0.0-2.0); EOS # 0.1 (0.0-0.7); EOS % 0.6 % (0-4.0); GRAN # 6.1 (1.4-6.5); GRAN % 76.5 % (42.2-75.2); HEMOGLOBIN 10.4 g/dl (12.5-16.0); LYMPH # 1.6 (1.2-3.4); LYMPH % 19.4 % (20.0-51.0); MEAN CELL VOLUME 90 fl (80.0-100.0); MEAN CORPUSCULAR HEMOGLOBIN 30 pg (27.0-31.0); MEAN CORPUSCULAR HGB CONC 33 g/dl (33.0-37.0); MEAN PLATELET VOLUME 10.3 fl (7.4-10.4); MONO # 0.2 (0.1-0.6); MONO % 2.3 % (1.7-9.3); PLATELET COUNT 588 K/mm3 (130-400); RED BLOOD COUNT 3.52 M/mm3 (4.10-5.30); REDCELL DISTRIBUTION WIDTH-CV 13.4 % (11.5-14.5)
[2017-11-04 14:13] LABS: HEMATOCRIT 31.6 % (37.0-47.0)
[2017-11-04 14:24] LABS: ALBUMIN 4.5 gm/dL (3.5-5.0); BILIRUBIN,TOTAL 0.4 mg/dL (0.0-1.0); CALCIUM 9.9 mg/dL (8.4-10.2); CREATININE, serum 0.7 mg/dL (0.52-1.25); POTASSIUM 3.5 mmol/L (3.4-5.0); TOTAL PROTEIN 8.5 gm/dL (6.4-8.2)
[2017-11-04 16:21] LABS: COLLECTION METHOD CLEAN CATCH
[2017-11-04 16:30] LABS: MUCOUS Present /lpf; PH 5 (5-8); SQUAMOUS EPITHELIAL 0-2 /hpf; URINE APPEARANCE Clear; URINE BACTERIA Rare /hpf; URINE BILIRUBIN Negative (NEGATIVE); URINE BLOOD Negative (NEGATIVE); URINE COLOR Yellow; URINE GLUCOSE Negative (NEGATIVE); URINE KETONE Negative (NEGATIVE); URINE LEUKOCYTE ESTERASE Negative (NEGATIVE); URINE NITRATE Negative (NEGATIVE); URINE PROTEIN(semi-quant) Negative (NEGATIVE); URINE RBC 0-2 /hpf; URINE UROBILINOGEN Negative (NEGATIVE)
[2017-11-04 16:34] VITALS: PULSE 120
== END 2017-11-04 16:34 | disposition home or self-care (01) ==
LOC: COL.ER 13:11
PROVIDERS: Nurse Practitioner
DX: G89.29 Other chronic pain (principal); R10.11 Right upper quadrant pain; G43.909 Migraine, unspecified, not intractable, without status migrainosus; Z90.49 Acquired absence of other specified parts of digestive tract; Z90.710 Acquired absence of both cervix and uterus; Z90.89 Acquired absence of other organs; Z88.6 Allergy status to analgesic agent; Z88.0 Allergy status to penicillin; Z88.8 Allergy status to other drugs, medicaments and biological substances
CPT/HCPCS: J1170; J1200; J1630; J2405; J7030

== ENCOUNTER 2017-11-11 16:01 | Emergency (ER) | payer BC ==
[~2017-11-11] VITALS: Ht 157.5 cm; Wt 77.3 kg
[2017-11-11 16:03] VITALS: TEMP 98.7
[2017-11-11 16:55] LABS: BASO # 0.1 (0.0-0.2); BASO % 0.8 % (0.0-2.0); EOS # 0.3 (0.0-0.7); EOS % 2.9 % (0-4.0); GRAN # 6.6 (1.4-6.5); GRAN % 64.9 % (42.2-75.2); LYMPH # 2.7 (1.2-3.4); LYMPH % 26.5 % (20.0-51.0); MEAN CELL VOLUME 87 fl (80.0-100.0); MEAN CORPUSCULAR HGB CONC 33 g/dl (33.0-37.0); MEAN PLATELET VOLUME 10.2 fl (7.4-10.4); MONO # 0.5 (0.1-0.6); MONO % 4.6 % (1.7-9.3); PLATELET COUNT 503 K/mm3 (130-400); RED BLOOD COUNT 3.25 M/mm3 (4.10-5.30); REDCELL DISTRIBUTION WIDTH-CV 13.4 % (11.5-14.5)
[2017-11-11 16:56] LABS: HEMATOCRIT 28.3 % (37.0-47.0); HEMOGLOBIN 9.4 g/dl (12.5-16.0); MEAN CORPUSCULAR HEMOGLOBIN 29 pg (27.0-31.0)
[2017-11-11 17:13] LABS: ALBUMIN 3.8 gm/dL (3.5-5.0); BILIRUBIN,TOTAL 0.3 mg/dL (0.0-1.0); C-REACTIVE PROTEIN 1.2 mg/dL (0.0-0.9); CALCIUM 9.2 mg/dL (8.4-10.2); CREATININE, serum 0.68 mg/dL (0.52-1.25); TOTAL PROTEIN 7.5 gm/dL (6.4-8.2)
[2017-11-11 17:19] LABS: COLLECTION METHOD CLEAN CATCH
[2017-11-11 17:32] LABS: MUCOUS Present /lpf; PH 5 (5-8); URINE APPEARANCE Hazy; URINE BACTERIA None Seen /hpf; URINE BILIRUBIN Negative (NEGATIVE); URINE BLOOD Negative (NEGATIVE); URINE COLOR Yellow; URINE GLUCOSE Negative (NEGATIVE); URINE KETONE Negative (NEGATIVE); URINE LEUKOCYTE ESTERASE Negative (NEGATIVE); URINE NITRATE Negative (NEGATIVE); URINE PROTEIN(semi-quant) Negative (NEGATIVE); URINE RBC 0-2 /hpf; URINE UROBILINOGEN Negative (NEGATIVE)
[2017-11-11 18:19] VITALS: BP 124/81; PULSE 112
== END 2017-11-11 18:10 | disposition home or self-care (01) ==
LOC: COL.ER 16:01
PROVIDERS: Emergency Medicine
DX: G89.29 Other chronic pain (principal); R10.9 Unspecified abdominal pain; R11.10 Vomiting, unspecified; D64.9 Anemia, unspecified; K21.9 Gastro-esophageal reflux disease without esophagitis; Z90.49 Acquired absence of other specified parts of digestive tract; Z90.89 Acquired absence of other organs; Z90.710 Acquired absence of both cervix and uterus
CPT/HCPCS: J1170; J2405; J7030

== ENCOUNTER 2017-11-12 14:02 | Day surgery (SDC) | payer BC ==
[~2017-11-12] VITALS: Ht 157.5 cm; Wt 76.7 kg
[2017-11-12 14:17] VITALS: BP 140/75; PULSE 94; TEMP 99.3
[2017-11-12 17:59] VITALS: BP 122/84; PULSE 104; TEMP 98.3
== END 2017-11-12 18:30 | disposition home or self-care (01) ==
LOC: SDCO 14:02 → SURG 17:12 → SDCO 18:30
DX: K31.5 Obstruction of duodenum (principal); K83.4 Spasm of sphincter of Oddi; K31.1 Adult hypertrophic pyloric stenosis; K31.9 Disease of stomach and duodenum, unspecified; Z88.8 Allergy status to other drugs, medicaments and biological substances; F32.9 Major depressive disorder, single episode, unspecified; K58.9 Irritable bowel syndrome, unspecified; K21.9 Gastro-esophageal reflux disease without esophagitis; F41.9 Anxiety disorder, unspecified; G89.29 Other chronic pain; R10.9 Unspecified abdominal pain; G43.909 Migraine, unspecified, not intractable, without status migrainosus; E66.9 Obesity, unspecified; Z68.41 Body mass index [BMI] 40.0-44.9, adult; Z90.49 Acquired absence of other specified parts of digestive tract; Z90.710 Acquired absence of both cervix and uterus; Z80.0 Family history of malignant neoplasm of digestive organs
CPT/HCPCS: OP; C1769; J2405; J2704; J7120; Q9967

== ENCOUNTER 2017-11-17 20:51 | Emergency (ER) | payer BC ==
[~2017-11-17] VITALS: Ht 157.5 cm; Wt 77.3 kg
[2017-11-17 21:01] VITALS: TEMP 99.3
[2017-11-17 21:55] LABS: BASO # 0.1 (0.0-0.2); BASO % 0.8 % (0.0-2.0); EOS % 0.1 % (0-4.0); GRAN # 8.5 (1.4-6.5); GRAN % 71.2 % (42.2-75.2); HEMOGLOBIN 10.4 g/dl (12.5-16.0); LYMPH # 2.8 (1.2-3.4); LYMPH % 23.3 % (20.0-51.0); MEAN CELL VOLUME 85 fl (80.0-100.0); MEAN CORPUSCULAR HEMOGLOBIN 28 pg (27.0-31.0); MEAN CORPUSCULAR HGB CONC 33 g/dl (33.0-37.0); MEAN PLATELET VOLUME 10.2 fl (7.4-10.4); MONO # 0.5 (0.1-0.6); MONO % 3.8 % (1.7-9.3); PLATELET COUNT 497 K/mm3 (130-400); RED BLOOD COUNT 3.77 M/mm3 (4.10-5.30); REDCELL DISTRIBUTION WIDTH-CV 13.6 % (11.5-14.5)
[2017-11-17 22:16] LABS: ALBUMIN 4.5 gm/dL (3.5-5.0); BILIRUBIN,TOTAL 0.5 mg/dL (0.0-1.0); CALCIUM 10.3 mg/dL (8.4-10.2); CREATININE, serum 0.67 mg/dL (0.52-1.25); POTASSIUM 3.9 mmol/L (3.4-5.0); TOTAL PROTEIN 8.8 gm/dL (6.4-8.2)
[2017-11-17 22:53] VITALS: BP 128/78; PULSE 110
== END 2017-11-17 22:54 | disposition home or self-care (01) ==
LOC: COL.ER 20:51
PROVIDERS: Emergency Medicine
DX: G89.29 Other chronic pain (principal); R10.9 Unspecified abdominal pain; G43.909 Migraine, unspecified, not intractable, without status migrainosus; Z87.891 Personal history of nicotine dependence; Z90.89 Acquired absence of other organs; Z90.710 Acquired absence of both cervix and uterus; Z90.49 Acquired absence of other specified parts of digestive tract
CPT/HCPCS: J2765; J7040

== ENCOUNTER 2017-11-30 17:42 | Emergency (ER) | payer BC ==
[~2017-11-30] VITALS: Ht 157.5 cm; Wt 75.0 kg
[2017-11-30 17:45] VITALS: BP 134/68; TEMP 98.1
[2017-11-30 18:23] LABS: BASO # 0.1 (0.0-0.2); BASO % 0.8 % (0.0-2.0); EOS # 0.3 (0.0-0.7); EOS % 3.4 % (0-4.0); GRAN # 4.9 (1.4-6.5); GRAN % 63.5 % (42.2-75.2); LYMPH # 2.1 (1.2-3.4); LYMPH % 27.2 % (20.0-51.0); MEAN CELL VOLUME 85 fl (80.0-100.0); MEAN CORPUSCULAR HGB CONC 31 g/dl (33.0-37.0); MEAN PLATELET VOLUME 10.3 fl (7.4-10.4); MONO # 0.4 (0.1-0.6); MONO % 4.8 % (1.7-9.3); PLATELET COUNT 477 K/mm3 (130-400); RED BLOOD COUNT 3.71 M/mm3 (4.10-5.30); REDCELL DISTRIBUTION WIDTH-CV 15.2 % (11.5-14.5)
[2017-11-30 18:25] LABS: HEMATOCRIT 31.6 % (37.0-47.0); HEMOGLOBIN 9.9 g/dl (12.5-16.0); MEAN CORPUSCULAR HEMOGLOBIN 27 pg (27.0-31.0)
[2017-11-30 18:35] LABS: BILIRUBIN,TOTAL 0.3 mg/dL (0.0-1.0); CREATININE, serum 0.8 mg/dL (0.52-1.25); TOTAL PROTEIN 7.4 gm/dL (6.4-8.2)
[2017-11-30 19:00] VITALS: PULSE 97
== END 2017-11-30 19:14 | disposition home or self-care (01) ==
LOC: COL.ER 17:42
PROVIDERS: Nurse Practitioner
DX: G89.29 Other chronic pain (principal); R10.13 Epigastric pain; G43.909 Migraine, unspecified, not intractable, without status migrainosus; F32.9 Major depressive disorder, single episode, unspecified; F41.9 Anxiety disorder, unspecified; Z90.49 Acquired absence of other specified parts of digestive tract; Z90.710 Acquired absence of both cervix and uterus; Z87.891 Personal history of nicotine dependence
CPT/HCPCS: J1170; J2550

== ENCOUNTER 2017-12-03 12:59 | Emergency (ER) | payer BC ==
[~2017-12-03] VITALS: Ht 157.5 cm; Wt 75.0 kg
[2017-12-03 13:06] VITALS: TEMP 99.8
[2017-12-03] MEDS ORDERED: K-DUR 10 MEQ T10 MEQ PO (15:55)
[2017-12-03 17:42] VITALS: BP 138/68; PULSE 112
== END 2017-12-03 17:53 | disposition home or self-care (01) ==
LOC: COL.ER 12:59
DX: R11.10 Vomiting, unspecified (principal); R10.11 Right upper quadrant pain; F41.9 Anxiety disorder, unspecified; K21.9 Gastro-esophageal reflux disease without esophagitis; E87.6 Hypokalemia
CPT/HCPCS: J1200; J1630; J2060; J2550

== ENCOUNTER 2017-12-04 10:25 | Emergency (ER) | payer BC ==
[~2017-12-04] VITALS: Ht 157.5 cm; Wt 75.0 kg
[~2017-12-04 10:25] MED LIST changes: +K-DUR 10 MEQ T10 MEQ PO
[2017-12-04 10:27] VITALS: BP 139/90; TEMP 99
[2017-12-04 11:09] LABS: BASO # 0.1 (0.0-0.2); BASO % 0.9 % (0.0-2.0); EOS # 0.1 (0.0-0.7); EOS % 0.6 % (0-4.0); GRAN # 6.1 (1.4-6.5); HEMOGLOBIN 10.6 g/dl (12.5-16.0); LYMPH # 1.9 (1.2-3.4); LYMPH % 21.9 % (20.0-51.0); MEAN CELL VOLUME 87 fl (80.0-100.0); MEAN CORPUSCULAR HEMOGLOBIN 27 pg (27.0-31.0); MEAN CORPUSCULAR HGB CONC 31 g/dl (33.0-37.0); MEAN PLATELET VOLUME 10.4 fl (7.4-10.4); MONO # 0.3 (0.1-0.6); MONO % 3.9 % (1.7-9.3); PLATELET COUNT 495 K/mm3 (130-400); RED BLOOD COUNT 3.93 M/mm3 (4.10-5.30); REDCELL DISTRIBUTION WIDTH-CV 16.9 % (11.5-14.5)
[2017-12-04 11:10] LABS: HEMATOCRIT 34.1 % (37.0-47.0)
[2017-12-04 11:14] LABS: MAGNESIUM 1.8 mg/dL (1.6-2.3); PHOSPHOROUS 3.9 mg/dL (2.5-4.5)
[2017-12-04 11:17] LABS: ALBUMIN 4.3 gm/dL (3.5-5.0); BILIRUBIN,TOTAL 0.4 mg/dL (0.0-1.0); C-REACTIVE PROTEIN 0.8 mg/dL (0.0-0.9); CALCIUM 9.8 mg/dL (8.4-10.2); CREATININE, serum 0.7 mg/dL (0.52-1.25); POTASSIUM 3.4 mmol/L (3.4-5.0); TOTAL PROTEIN 8.4 gm/dL (6.4-8.2)
[2017-12-04 12:04] LABS: COLLECTION METHOD CLEAN CATCH
[2017-12-04 12:20] LABS: PH 6 (5-8); SQUAMOUS EPITHELIAL 0-2 /hpf; URINE APPEARANCE Clear; URINE BACTERIA None Seen /hpf; URINE BILIRUBIN Negative (NEGATIVE); URINE BLOOD Negative (NEGATIVE); URINE COLOR Straw; URINE GLUCOSE Negative (NEGATIVE); URINE KETONE Negative (NEGATIVE); URINE LEUKOCYTE ESTERASE Negative (NEGATIVE); URINE NITRATE Negative (NEGATIVE); URINE PROTEIN(semi-quant) Negative (NEGATIVE); URINE RBC 0-2 /hpf; URINE UROBILINOGEN Negative (NEGATIVE)
[2017-12-04 12:35] VITALS: PULSE 120
== END 2017-12-04 12:41 | disposition home or self-care (01) ==
LOC: COL.ER 10:25
PROVIDERS: Emergency Medicine
DX: R11.10 Vomiting, unspecified (principal); G89.29 Other chronic pain; R10.9 Unspecified abdominal pain; F41.9 Anxiety disorder, unspecified; Z90.710 Acquired absence of both cervix and uterus; Z90.89 Acquired absence of other organs; Z90.49 Acquired absence of other specified parts of digestive tract
CPT/HCPCS: J1170; J1200; J1630; J2405; J7030

== ENCOUNTER 2017-12-07 19:30 | Emergency (ER) | payer BC ==
[~2017-12-07] VITALS: Ht 157.5 cm; Wt 75.0 kg
[2017-12-07 19:39] VITALS: BP 175/85; TEMP 98.3
[2017-12-07 20:54] LABS: BASO # 0.1 (0.0-0.2); BASO % 0.6 % (0.0-2.0); EOS # 0.1 (0.0-0.7); GRAN % 68.3 % (42.2-75.2); HEMOGLOBIN 11.6 g/dl (12.5-16.0); LYMPH # 2.6 (1.2-3.4); LYMPH % 25.9 % (20.0-51.0); MEAN CELL VOLUME 89 fl (80.0-100.0); MEAN CORPUSCULAR HEMOGLOBIN 28 pg (27.0-31.0); MEAN CORPUSCULAR HGB CONC 31 g/dl (33.0-37.0); MEAN PLATELET VOLUME 10.8 fl (7.4-10.4); MONO # 0.4 (0.1-0.6); MONO % 3.6 % (1.7-9.3); PLATELET COUNT 423 K/mm3 (130-400); RED BLOOD COUNT 4.17 M/mm3 (4.10-5.30); REDCELL DISTRIBUTION WIDTH-CV 17.9 % (11.5-14.5)
[2017-12-07 20:56] LABS: HEMATOCRIT 36.9 % (37.0-47.0)
[2017-12-07 21:05] LABS: ALBUMIN 4.1 gm/dL (3.5-5.0); BILIRUBIN,TOTAL 0.3 mg/dL (0.0-1.0); C-REACTIVE PROTEIN 1.2 mg/dL (0.0-0.9); CALCIUM 9.5 mg/dL (8.4-10.2); CREATININE, serum 0.72 mg/dL (0.52-1.25); POTASSIUM 3.5 mmol/L (3.4-5.0); TOTAL PROTEIN 7.9 gm/dL (6.4-8.2)
[2017-12-07 22:16] LABS: COLLECTION METHOD CLEAN CATCH
[2017-12-07 22:22] LABS: MUCOUS Present /lpf; PH 6 (5-8); URINE APPEARANCE Hazy; URINE BACTERIA Rare /hpf; URINE BILIRUBIN Negative (NEGATIVE); URINE BLOOD Negative (NEGATIVE); URINE COLOR Straw; URINE GLUCOSE Negative (NEGATIVE); URINE KETONE Negative (NEGATIVE); URINE LEUKOCYTE ESTERASE Trace (NEGATIVE); URINE NITRATE Negative (NEGATIVE); URINE PROTEIN(semi-quant) Negative (NEGATIVE); URINE RBC 0-2 /hpf; URINE UROBILINOGEN Negative (NEGATIVE)
[2017-12-08 00:06] VITALS: PULSE 124
== END 2017-12-08 00:05 | disposition home or self-care (01) ==
LOC: COL.ER 19:30
PROVIDERS: Emergency Medicine
DX: K92.0 Hematemesis (principal); G89.29 Other chronic pain; R10.11 Right upper quadrant pain
CPT/HCPCS: J1200; J2405; J2765; J7030

== ENCOUNTER 2017-12-12 15:14 | Emergency (ER) | payer BC ==
[~2017-12-12] VITALS: Ht 157.5 cm; Wt 75.0 kg
[2017-12-12 15:21] VITALS: BP 147/87; TEMP 99
[2017-12-12 16:52] LABS: BASO # 0.1 (0.0-0.2); BASO % 0.9 % (0.0-2.0); EOS % 0.3 % (0-4.0); GRAN # 6.9 (1.4-6.5); HEMOGLOBIN 13.4 g/dl (12.5-16.0); LYMPH # 1.8 (1.2-3.4); LYMPH % 19.1 % (20.0-51.0); MEAN CELL VOLUME 89 fl (80.0-100.0); MEAN CORPUSCULAR HEMOGLOBIN 28 pg (27.0-31.0); MEAN CORPUSCULAR HGB CONC 32 g/dl (33.0-37.0); MEAN PLATELET VOLUME 11.1 fl (7.4-10.4); MONO # 0.4 (0.1-0.6); MONO % 4.2 % (1.7-9.3); PLATELET COUNT 411 K/mm3 (130-400); RED BLOOD COUNT 4.73 M/mm3 (4.10-5.30); REDCELL DISTRIBUTION WIDTH-CV 18.6 % (11.5-14.5)
[2017-12-12 17:10] LABS: ALBUMIN 4.6 gm/dL (3.5-5.0); BILIRUBIN,TOTAL 0.4 mg/dL (0.0-1.0); CALCIUM 10.2 mg/dL (8.4-10.2); CREATININE, serum 0.68 mg/dL (0.52-1.25); POTASSIUM 4.1 mmol/L (3.4-5.0); TOTAL PROTEIN 9.1 gm/dL (6.4-8.2)
[2017-12-12] MEDS ORDERED: PHENERGAN25 MG/ML IJ (17:56)
[2017-12-12 18:05] VITALS: PULSE 106
== END 2017-12-12 18:06 | disposition home or self-care (01) ==
LOC: COL.ER 15:14
PROVIDERS: Physician Assistant
DX: R11.2 Nausea with vomiting, unspecified (principal)
CPT/HCPCS: J2550; J2765

== ENCOUNTER 2017-12-16 15:00 | Outpatient (RCR) | payer BC ==
[2017-11-29 15:50] VITALS: BP 126/75; PULSE 92; TEMP 98.1
[2017-12-02 15:19] VITALS: BP 115/63; PULSE 87; TEMP 99.5
[2017-12-05 15:18] VITALS: BP 124/76; PULSE 94
[~2017-12-16] VITALS: Ht 157.5 cm; Wt 75.4 kg
[~2017-12-16 15:00] MED LIST changes: +PHENERGAN25 MG/ML IJ
[2017-12-16 15:12] VITALS: BP 123/72; PULSE 99; TEMP 98
== END 2017-12-16 16:29 | disposition home or self-care (01) ==
LOC: EUO 15:00
DX: D50.9 Iron deficiency anemia, unspecified (principal); R11.10 Vomiting, unspecified
CPT/HCPCS: J2405; J2916

== ENCOUNTER 2017-12-31 13:15 | Emergency (ER) | payer BC ==
[~2017-12-31] VITALS: Ht 157.5 cm; Wt 75.6 kg
[2017-12-31 13:23] VITALS: BP 142/90; TEMP 99.4
[2017-12-31 14:10] LABS: BASO # 0.1 (0.0-0.2); BASO % 0.6 % (0.0-2.0); EOS % 0.4 % (0-4.0); GRAN # 6.1 (1.4-6.5); GRAN % 74.8 % (42.2-75.2); HEMATOCRIT 40.6 % (37.0-47.0); HEMOGLOBIN 13.3 g/dl (12.5-16.0); LYMPH # 1.6 (1.2-3.4); MEAN CELL VOLUME 87 fl (80.0-100.0); MEAN CORPUSCULAR HEMOGLOBIN 29 pg (27.0-31.0); MEAN CORPUSCULAR HGB CONC 33 g/dl (33.0-37.0); MEAN PLATELET VOLUME 10.8 fl (7.4-10.4); MONO # 0.3 (0.1-0.6); MONO % 3.5 % (1.7-9.3); PLATELET COUNT 346 K/mm3 (130-400); RED BLOOD COUNT 4.67 M/mm3 (4.10-5.30); REDCELL DISTRIBUTION WIDTH-CV 17.4 % (11.5-14.5)
[2017-12-31 14:24] LABS: ALBUMIN 4.5 gm/dL (3.5-5.0); BILIRUBIN,TOTAL 0.4 mg/dL (0.0-1.0); C-REACTIVE PROTEIN 0.9 mg/dL (0.0-0.9); CALCIUM 10.1 mg/dL (8.4-10.2); CREATININE, serum 0.69 mg/dL (0.52-1.25); POTASSIUM 3.2 mmol/L (3.4-5.0)
[2017-12-31 15:42] LABS: COLLECTION METHOD CLEAN CATCH
[2017-12-31 15:58] LABS: PH 6 (5-8); URINE APPEARANCE Hazy; URINE BACTERIA Rare /hpf; URINE BILIRUBIN Negative (NEGATIVE); URINE BLOOD Negative (NEGATIVE); URINE COLOR Straw; URINE GLUCOSE Negative (NEGATIVE); URINE KETONE Negative (NEGATIVE); URINE LEUKOCYTE ESTERASE Trace (NEGATIVE); URINE NITRATE Negative (NEGATIVE); URINE PROTEIN(semi-quant) Negative (NEGATIVE); URINE RBC 0-2 /hpf; URINE UROBILINOGEN Negative (NEGATIVE)
[2017-12-31 16:24] VITALS: PULSE 126
== END 2017-12-31 16:25 | disposition home or self-care (01) ==
LOC: COL.ER 13:15
PROVIDERS: Physician Assistant
DX: G89.29 Other chronic pain (principal); R10.9 Unspecified abdominal pain; R11.10 Vomiting, unspecified; K21.9 Gastro-esophageal reflux disease without esophagitis; F41.9 Anxiety disorder, unspecified; F32.9 Major depressive disorder, single episode, unspecified; Z90.49 Acquired absence of other specified parts of digestive tract
CPT/HCPCS: J1170; J2060; J2405; J2550

== ENCOUNTER 2018-01-01 17:12 | Emergency (ER) | payer BC ==
[~2018-01-01] VITALS: Ht 157.5 cm; Wt 75.0 kg
[2018-01-01 17:15] VITALS: BP 138/83; TEMP 97.8
[2018-01-01 19:40] VITALS: PULSE 126
== END 2018-01-01 19:40 | disposition home or self-care (01) ==
LOC: COL.ER 17:12
DX: R10.9 Unspecified abdominal pain (principal); G89.29 Other chronic pain; Z79.891 Long term (current) use of opiate analgesic
CPT/HCPCS: J1170; J1200; J1630; J2060

== ENCOUNTER 2018-01-06 07:39 | Emergency (ER) | payer BC ==
[~2018-01-06] VITALS: Ht 157.5 cm; Wt 72.7 kg
[2018-01-06 07:44] VITALS: BP 146/97; TEMP 99.3
[2018-01-06] MEDS ORDERED: FENTANYL 12MCG TD (08:17)
[2018-01-06 08:24] LABS: ALBUMIN 4.5 gm/dL (3.5-5.0); BILIRUBIN,TOTAL 0.3 mg/dL (0.0-1.0); CALCIUM 9.9 mg/dL (8.4-10.2); CREATININE, serum 0.58 mg/dL (0.52-1.25)
[2018-01-06 08:27] LABS: BASO # 0.1 (0.0-0.2); BASO % 0.8 % (0.0-2.0); EOS # 0.1 (0.0-0.7); GRAN # 5.6 (1.4-6.5); GRAN % 63.7 % (42.2-75.2); HEMATOCRIT 42.2 % (37.0-47.0); HEMOGLOBIN 13.7 g/dl (12.5-16.0); LYMPH # 2.7 (1.2-3.4); MEAN CELL VOLUME 88 fl (80.0-100.0); MEAN CORPUSCULAR HEMOGLOBIN 29 pg (27.0-31.0); MEAN CORPUSCULAR HGB CONC 33 g/dl (33.0-37.0); MEAN PLATELET VOLUME 11.1 fl (7.4-10.4); MONO # 0.3 (0.1-0.6); MONO % 3.6 % (1.7-9.3); PLATELET COUNT 351 K/mm3 (130-400); RED BLOOD COUNT 4.78 M/mm3 (4.10-5.30); REDCELL DISTRIBUTION WIDTH-CV 17.1 % (11.5-14.5)
[2018-01-06 09:34] VITALS: PULSE 129
== END 2018-01-06 09:34 | disposition home or self-care (01) ==
LOC: COL.ER 07:39
PROVIDERS: Family Medicine
DX: R10.11 Right upper quadrant pain (principal)
CPT/HCPCS: J0780; J1170; J1200; J1630; J2060

== ENCOUNTER 2018-01-07 10:05 | Emergency (ER) | payer BC ==
[~2018-01-07] VITALS: Ht 157.5 cm; Wt 72.7 kg
[~2018-01-07 10:05] MED LIST changes: +FENTANYL 12MCG TD
[2018-01-07 10:21] VITALS: TEMP 99.6
[2018-01-07 10:48] LABS: BASO # 0.1 (0.0-0.2); BASO % 0.8 % (0.0-2.0); EOS # 0.1 (0.0-0.7); EOS % 1.5 % (0-4.0); GRAN # 5.6 (1.4-6.5); GRAN % 65.9 % (42.2-75.2); HEMATOCRIT 41.9 % (37.0-47.0); HEMOGLOBIN 13.5 g/dl (12.5-16.0); LYMPH # 2.3 (1.2-3.4); MEAN CELL VOLUME 89 fl (80.0-100.0); MEAN CORPUSCULAR HEMOGLOBIN 29 pg (27.0-31.0); MEAN CORPUSCULAR HGB CONC 32 g/dl (33.0-37.0); MEAN PLATELET VOLUME 10.6 fl (7.4-10.4); MONO # 0.4 (0.1-0.6); MONO % 4.1 % (1.7-9.3); PLATELET COUNT 362 K/mm3 (130-400); REDCELL DISTRIBUTION WIDTH-CV 17.2 % (11.5-14.5)
[2018-01-07 10:59] LABS: ALBUMIN 4.4 gm/dL (3.5-5.0); BILIRUBIN,TOTAL 0.3 mg/dL (0.0-1.0); CALCIUM 9.5 mg/dL (8.4-10.2); CREATININE, serum 0.67 mg/dL (0.52-1.25); POTASSIUM 3.2 mmol/L (3.4-5.0); TOTAL PROTEIN 7.7 gm/dL (6.4-8.2)
[2018-01-07 12:41] VITALS: BP 143/92; PULSE 118
== END 2018-01-07 12:42 | disposition home or self-care (01) ==
LOC: COL.ER 10:05
PROVIDERS: Family Medicine
DX: R10.9 Unspecified abdominal pain (principal); Z87.891 Personal history of nicotine dependence
CPT/HCPCS: J0780; J1170; J1630; J2060

== ENCOUNTER 2018-01-10 16:06 | Emergency (ER) | payer BC ==
[~2018-01-10] VITALS: Ht 157.5 cm; Wt 72.7 kg
[2018-01-10 16:17] VITALS: TEMP 99.2
[2018-01-10 19:21] VITALS: BP 145/100; PULSE 112
== END 2018-01-10 19:28 | disposition home or self-care (01) ==
LOC: COL.ER 16:06
DX: R00.0 Tachycardia, unspecified (principal)
CPT/HCPCS: J0780; J1200; J1630

== ENCOUNTER 2018-01-19 17:43 | Emergency (ER) | payer BC ==
[~2018-01-19] VITALS: Ht 157.5 cm; Wt 72.7 kg
[2018-01-19 17:46] VITALS: BP 144/90; TEMP 99
[2018-01-19 18:42] LABS: BASO # 0.1 (0.0-0.2); BASO % 0.8 % (0.0-2.0); EOS # 0.1 (0.0-0.7); GRAN # 5.3 (1.4-6.5); GRAN % 73.5 % (42.2-75.2); HEMATOCRIT 42.1 % (37.0-47.0); HEMOGLOBIN 14.3 g/dl (12.5-16.0); LYMPH # 1.5 (1.2-3.4); LYMPH % 21.2 % (20.0-51.0); MEAN CELL VOLUME 86 fl (80.0-100.0); MEAN CORPUSCULAR HEMOGLOBIN 29 pg (27.0-31.0); MEAN CORPUSCULAR HGB CONC 34 g/dl (33.0-37.0); MONO # 0.2 (0.1-0.6); MONO % 3.2 % (1.7-9.3); PLATELET COUNT 307 K/mm3 (130-400); RED BLOOD COUNT 4.91 M/mm3 (4.10-5.30); REDCELL DISTRIBUTION WIDTH-CV 16.3 % (11.5-14.5)
[2018-01-19 18:48] LABS: ALANINE AMINOTRANSFERASE 40 U/L (9-52); ALBUMIN 4.6 gm/dL (3.5-5.0); ALKALINE PHOSPHATASE 100 U/L (50-136); ANION GAP 14 mmol/L (7-16); AST,SGOT 34 U/L (15-37); BILIRUBIN,TOTAL 0.4 mg/dL (0.0-1.0); BLOOD UREA NITROGEN 10 mg/dL (7-17); CALCIUM 9.4 mg/dL (8.4-10.2); CARBON DIOXIDE 27 mmol/L (22-30); CHLORIDE 99 mmol/L (98-107); CREATININE, serum 0.63 mg/dL (0.52-1.25); GLUCOSE 129 mg/dL (74-106); LIPASE 54 U/L (23-300); POTASSIUM 3.1 mmol/L (3.4-5.0); SODIUM 140 mmol/L (137-145); TOTAL PROTEIN 8.1 gm/dL (6.4-8.2)
[2018-01-19 19:01] LABS: TROPONIN-I < 0.012 ng/mL (0.000-0.034)
[2018-01-19 19:12] LABS: COLLECTION METHOD CLEAN CATCH
[2018-01-19 19:23] LABS: MUCOUS Present /lpf; PH 5 (5-8); SQUAMOUS EPITHELIAL 0-2 /hpf; URINE APPEARANCE Hazy; URINE BACTERIA None Seen /hpf; URINE BILIRUBIN Negative (NEGATIVE); URINE BLOOD Negative (NEGATIVE); URINE COLOR Yellow; URINE GLUCOSE Negative (NEGATIVE); URINE KETONE Trace (NEGATIVE); URINE LEUKOCYTE ESTERASE Negative (NEGATIVE); URINE NITRATE Negative (NEGATIVE); URINE PROTEIN(semi-quant) 1+ (NEGATIVE); URINE UROBILINOGEN Negative (NEGATIVE)
[2018-01-19 19:49] VITALS: PULSE 108
== END 2018-01-19 20:03 | disposition home or self-care (01) ==
LOC: COL.ER 17:43
PROVIDERS: Emergency Medicine
DX: R10.9 Unspecified abdominal pain (principal); G89.29 Other chronic pain; Z90.49 Acquired absence of other specified parts of digestive tract; Z90.710 Acquired absence of both cervix and uterus; Z79.891 Long term (current) use of opiate analgesic
CPT/HCPCS: J1170; J2405; J2550; J7030

== ENCOUNTER 2018-01-24 15:36 | Emergency (ER) | payer BC ==
[~2018-01-24] VITALS: Ht 157.5 cm; Wt 71.4 kg
[2018-01-24 15:43] VITALS: TEMP 99
[2018-01-24 16:33] LABS: BASO # 0.1 (0.0-0.2); EOS # 0.4 (0.0-0.7); EOS % 4.8 % (0-4.0); GRAN # 4.5 (1.4-6.5); GRAN % 51.4 % (42.2-75.2); HEMATOCRIT 43.6 % (37.0-47.0); HEMOGLOBIN 14.7 g/dl (12.5-16.0); LYMPH # 3.3 (1.2-3.4); LYMPH % 37.9 % (20.0-51.0); MEAN CELL VOLUME 86 fl (80.0-100.0); MEAN CORPUSCULAR HEMOGLOBIN 29 pg (27.0-31.0); MEAN CORPUSCULAR HGB CONC 34 g/dl (33.0-37.0); MEAN PLATELET VOLUME 10.9 fl (7.4-10.4); MONO # 0.4 (0.1-0.6); MONO % 4.6 % (1.7-9.3); PLATELET COUNT 317 K/mm3 (130-400); RED BLOOD COUNT 5.05 M/mm3 (4.10-5.30); REDCELL DISTRIBUTION WIDTH-CV 16.5 % (11.5-14.5)
[2018-01-24 16:38] LABS: INR 0.9 (0.8-3.0); PROTHROMBIN TIME 10.6 SECONDS (9.7-12.8)
[2018-01-24 16:40] LABS: PARTIAL THROMBOPLASTIN TIME 38.5 SECONDS (26.0-37.0)
[2018-01-24 17:03] LABS: ALANINE AMINOTRANSFERASE 34 U/L (9-52); ALBUMIN 4.6 gm/dL (3.5-5.0); ALKALINE PHOSPHATASE 91 U/L (50-136); ANION GAP 15 mmol/L (7-16); AST,SGOT 50 U/L (15-37); BILIRUBIN,TOTAL 0.3 mg/dL (0.0-1.0); BLOOD UREA NITROGEN 7 mg/dL (7-17); CARBON DIOXIDE 30 mmol/L (22-30); CHLORIDE 99 mmol/L (98-107); CREATININE, serum 0.78 mg/dL (0.52-1.25); GLUCOSE 109 mg/dL (74-106); POTASSIUM 3.4 mmol/L (3.4-5.0); SODIUM 143 mmol/L (137-145); TOTAL PROTEIN 8.1 gm/dL (6.4-8.2)
[2018-01-24 17:13] LABS: TROPONIN-I < 0.012 ng/mL (0.000-0.034)
[2018-01-24 18:33] VITALS: BP 134/84; PULSE 119
== END 2018-01-24 18:35 | disposition home or self-care (01) ==
LOC: COL.ER 15:36
PROVIDERS: Family Medicine
DX: R07.89 Other chest pain (principal); R11.2 Nausea with vomiting, unspecified; E86.0 Dehydration
CPT/HCPCS: J1170; J1200; J1630; J2060; J2550; J7030

== ENCOUNTER 2018-01-26 18:58 | Emergency (ER) | payer BC ==
[~2018-01-26] VITALS: Ht 157.5 cm; Wt 75.0 kg
[2018-01-26 18:59] VITALS: TEMP 99.4
[2018-01-26 20:47] VITALS: BP 145/87; PULSE 129
== END 2018-01-26 20:49 | disposition home or self-care (01) ==
LOC: COL.ER 18:58
DX: K83.8 Other specified diseases of biliary tract (principal); G89.29 Other chronic pain; R11.2 Nausea with vomiting, unspecified; R10.9 Unspecified abdominal pain; G43.909 Migraine, unspecified, not intractable, without status migrainosus; F41.9 Anxiety disorder, unspecified; F42.9 Obsessive-compulsive disorder, unspecified; Z90.710 Acquired absence of both cervix and uterus; Z90.49 Acquired absence of other specified parts of digestive tract
CPT/HCPCS: J0780; J2060; J2550

== ENCOUNTER 2018-02-03 12:31 | Emergency (ER) | payer BC ==
[~2018-02-03] VITALS: Ht 157.5 cm; Wt 73.6 kg
[2018-02-03 12:42] VITALS: BP 174/77; TEMP 99.7
[2018-02-03 15:43] VITALS: PULSE 115
== END 2018-02-03 15:43 | disposition home or self-care (01) ==
LOC: COL.ER 12:31
DX: K83.0 Cholangitis (principal); R11.2 Nausea with vomiting, unspecified; G89.29 Other chronic pain; R10.13 Epigastric pain; G43.909 Migraine, unspecified, not intractable, without status migrainosus; Z90.710 Acquired absence of both cervix and uterus
CPT/HCPCS: J0780; J1170; J2060; J2405; J2550

== ENCOUNTER 2018-02-04 11:30 | Outpatient (CLI) | payer BC ==
[~2018-02-04] VITALS: Ht 157.5 cm; Wt 73.5 kg
[2018-02-04 12:18] VITALS: BP 122/68; PULSE 100; TEMP 100.5
== END 2018-02-04 15:57 | disposition home or self-care (01) ==
LOC: EUO 11:30
DX: G43.A0 Cyclical vomiting, in migraine, not intractable (principal); K83.8 Other specified diseases of biliary tract
CPT/HCPCS: J1170; J2060; J2550; J7030

== ENCOUNTER 2018-02-06 13:19 | Emergency (ER) | payer BC ==
[~2018-02-06] VITALS: Ht 157.5 cm; Wt 72.7 kg
[2018-02-06 13:20] VITALS: BP 150/94; TEMP 99.4
[2018-02-06 13:45] LABS: BASO # 0.1 (0.0-0.2); BASO % 0.8 % (0.0-2.0); EOS # 0.2 (0.0-0.7); GRAN # 5.3 (1.4-6.5); GRAN % 62.9 % (42.2-75.2); HEMATOCRIT 43.1 % (37.0-47.0); HEMOGLOBIN 14.3 g/dl (12.5-16.0); LYMPH # 2.5 (1.2-3.4); LYMPH % 29.9 % (20.0-51.0); MEAN CELL VOLUME 87 fl (80.0-100.0); MEAN CORPUSCULAR HEMOGLOBIN 29 pg (27.0-31.0); MEAN CORPUSCULAR HGB CONC 33 g/dl (33.0-37.0); MEAN PLATELET VOLUME 10.7 fl (7.4-10.4); MONO # 0.3 (0.1-0.6); MONO % 3.9 % (1.7-9.3); PLATELET COUNT 348 K/mm3 (130-400); RED BLOOD COUNT 4.93 M/mm3 (4.10-5.30); REDCELL DISTRIBUTION WIDTH-CV 16.5 % (11.5-14.5)
[2018-02-06 13:48] LABS: COLLECTION METHOD CLEAN CATCH
[2018-02-06 13:53] LABS: ALBUMIN 4.4 gm/dL (3.5-5.0); BILIRUBIN,TOTAL 0.3 mg/dL (0.0-1.0); CALCIUM 9.1 mg/dL (8.4-10.2); CREATININE, serum 0.68 mg/dL (0.52-1.25); POTASSIUM 3.7 mmol/L (3.4-5.0); TOTAL PROTEIN 7.9 gm/dL (6.4-8.2)
[2018-02-06 14:54] VITALS: PULSE 108
[2018-02-06 14:57] LABS: PH 6 (5-8); URINE APPEARANCE Clear; URINE BACTERIA Rare /hpf; URINE BILIRUBIN Negative (NEGATIVE); URINE BLOOD Negative (NEGATIVE); URINE COLOR Straw; URINE GLUCOSE Negative (NEGATIVE); URINE KETONE Negative (NEGATIVE); URINE LEUKOCYTE ESTERASE Negative (NEGATIVE); URINE NITRATE Negative (NEGATIVE); URINE PROTEIN(semi-quant) Negative (NEGATIVE); URINE RBC 0-2 /hpf; URINE UROBILINOGEN Negative (NEGATIVE)
== END 2018-02-06 14:54 | disposition home or self-care (01) ==
LOC: COL.ER 13:19
PROVIDERS: Nurse Practitioner
DX: R11.2 Nausea with vomiting, unspecified (principal); R10.11 Right upper quadrant pain
CPT/HCPCS: J1170; J1630

== ENCOUNTER 2018-02-09 17:07 | Emergency (ER) | payer BC ==
[~2018-02-09] VITALS: Ht 157.5 cm; Wt 72.7 kg
[2018-02-09 17:21] VITALS: BP 144/106; TEMP 100.3
[2018-02-09 19:28] VITALS: PULSE 127
== END 2018-02-09 19:28 | disposition home or self-care (01) ==
LOC: COL.ER 17:07
DX: R11.2 Nausea with vomiting, unspecified (principal); F32.9 Major depressive disorder, single episode, unspecified; F41.9 Anxiety disorder, unspecified; G43.909 Migraine, unspecified, not intractable, without status migrainosus; G89.29 Other chronic pain; Z79.891 Long term (current) use of opiate analgesic; Z90.49 Acquired absence of other specified parts of digestive tract
CPT/HCPCS: J2550

== ENCOUNTER 2018-02-14 13:37 | Emergency (ER) | payer BC ==
[~2018-02-14] VITALS: Ht 157.5 cm; Wt 72.7 kg
[2018-02-14 13:39] VITALS: BP 145/97; TEMP 99.2
[2018-02-14 14:41] VITALS: PULSE 88
== END 2018-02-14 14:42 | disposition home or self-care (01) ==
LOC: COL.ER 13:37
DX: G43.909 Migraine, unspecified, not intractable, without status migrainosus (principal); K21.9 Gastro-esophageal reflux disease without esophagitis; F32.9 Major depressive disorder, single episode, unspecified; F41.9 Anxiety disorder, unspecified; Z90.89 Acquired absence of other organs; Z90.49 Acquired absence of other specified parts of digestive tract; Z90.710 Acquired absence of both cervix and uterus
CPT/HCPCS: J1200; J1630; J2550

== ENCOUNTER 2018-02-19 12:40 | Outpatient (CLI) | payer BC ==
[~2018-02-19] VITALS: Ht 157.5 cm; Wt 73.1 kg
== END 2018-02-19 16:07 | disposition home or self-care (01) ==
LOC: EUO 12:40
DX: K83.8 Other specified diseases of biliary tract (principal)
CPT/HCPCS: J1170; J2550; J7030

== ENCOUNTER 2018-03-04 09:27 | Emergency (ER) | payer BC ==
[~2018-03-04] VITALS: Ht 157.5 cm; Wt 68.2 kg
[2018-03-04 09:37] VITALS: BP 145/95
[2018-03-04 10:33] LABS: HEMATOCRIT 46.5 % (37.0-47.0); HEMOGLOBIN 15.8 g/dl (12.5-16.0); MEAN CELL VOLUME 88 fl (80.0-100.0); MEAN CORPUSCULAR HEMOGLOBIN 30 pg (27.0-31.0); MEAN CORPUSCULAR HGB CONC 34 g/dl (33.0-37.0); MEAN PLATELET VOLUME 10.7 fl (7.4-10.4); PLATELET COUNT 373 K/mm3 (130-400)
[2018-03-04 10:44] LABS: ALBUMIN 4.6 gm/dL (3.5-5.0); BILIRUBIN,TOTAL 0.4 mg/dL (0.0-1.0); C-REACTIVE PROTEIN 0.6 mg/dL (0.0-0.9); CALCIUM 9.9 mg/dL (8.4-10.2); CREATININE, serum 0.55 mg/dL (0.52-1.25); POTASSIUM 3.7 mmol/L (3.4-5.0); TOTAL PROTEIN 8.4 gm/dL (6.4-8.2)
[2018-03-04 10:49] LABS: BAND 3 % (0-10); EOSINOPHIL 2 % (0-4); LYMPHOCYTE 38 % (20.0-51.0); NEUTROPHILS 53 % (42.0-75.2); PLATELET ESTIMATE NORMAL (NORMAL)
[2018-03-04 11:15] VITALS: PULSE 95; TEMP 98.8
== END 2018-03-04 11:15 | disposition home or self-care (01) ==
LOC: COL.ER 09:27
PROVIDERS: Physician Assistant
DX: R10.9 Unspecified abdominal pain (principal); G89.29 Other chronic pain; K21.9 Gastro-esophageal reflux disease without esophagitis; Z79.891 Long term (current) use of opiate analgesic; Z87.19 Personal history of other diseases of the digestive system; Z90.49 Acquired absence of other specified parts of digestive tract; Z90.710 Acquired absence of both cervix and uterus
CPT/HCPCS: J1630; J2060; J2405; J2550

== ENCOUNTER 2018-03-05 14:41 | Outpatient (CLI) | payer BC ==
[~2018-03-05] VITALS: Ht 157.5 cm; Wt 72.2 kg
[2018-03-05 15:24] VITALS: BP 121/86; PULSE 97; TEMP 98.7
[2018-03-05 17:28] VITALS: BP 133/77; PULSE 107; TEMP 98.4
== END 2018-03-05 17:30 | disposition home or self-care (01) ==
LOC: EUO 14:41
DX: G43.A0 Cyclical vomiting, in migraine, not intractable (principal); K83.8 Other specified diseases of biliary tract
CPT/HCPCS: J1170; J2060; J2550; J7030

== ENCOUNTER 2018-03-12 12:56 | Emergency (ER) | payer BC ==
[~2018-03-12] VITALS: Ht 157.5 cm; Wt 70.5 kg
[2018-03-12 13:00] VITALS: BP 151/96; TEMP 98.7
[2018-03-12 13:58] LABS: COLLECTION METHOD CLEAN CATCH
[2018-03-12 14:09] LABS: HYALINE CAST >12 /lpf; MUCOUS Present /lpf; PH 5 (5-8); URINE APPEARANCE Hazy; URINE BACTERIA Rare /hpf; URINE BILIRUBIN Negative (NEGATIVE); URINE BLOOD Negative (NEGATIVE); URINE COLOR Yellow; URINE GLUCOSE Negative (NEGATIVE); URINE KETONE Negative (NEGATIVE); URINE LEUKOCYTE ESTERASE Trace (NEGATIVE); URINE NITRATE Negative (NEGATIVE); URINE PROTEIN(semi-quant) Negative (NEGATIVE); URINE UROBILINOGEN Negative (NEGATIVE)
[2018-03-12 14:41] VITALS: PULSE 114
== END 2018-03-12 14:42 | disposition home or self-care (01) ==
LOC: COL.ER 12:56
DX: S39.012A Strain of muscle, fascia and tendon of lower back, initial encounter (principal); S40.022A Contusion of left upper arm, initial encounter; S80.12XA Contusion of left lower leg, initial encounter; S80.11XA Contusion of right lower leg, initial encounter; R10.30 Lower abdominal pain, unspecified; G43.909 Migraine, unspecified, not intractable, without status migrainosus; K58.9 Irritable bowel syndrome, unspecified; F41.9 Anxiety disorder, unspecified; V43.52XA Car driver injured in collision with other type car in traffic accident, initial encounter

== ENCOUNTER 2018-03-26 13:18 | Outpatient (CLI) | payer BC ==
[~2018-03-26] VITALS: Ht 157.5 cm; Wt 75.4 kg
[2018-03-26 13:56] VITALS: BP 125/78; PULSE 90; TEMP 99
== END 2018-03-26 16:31 | disposition home or self-care (01) ==
LOC: EUO 13:18
DX: R11.2 Nausea with vomiting, unspecified (principal); K83.4 Spasm of sphincter of Oddi
CPT/HCPCS: J1170; J2550; J7030

== ENCOUNTER 2018-03-27 13:33 | Emergency (ER) | payer BC ==
[~2018-03-27] VITALS: Ht 157.5 cm; Wt 68.2 kg
[2018-03-27 13:39] VITALS: TEMP 99.4
[2018-03-27 14:15] LABS: COLLECTION METHOD CLEAN CATCH
[2018-03-27 14:19] LABS: BASO # 0.1 (0.0-0.2); BASO % 0.7 % (0.0-2.0); EOS # 0.1 (0.0-0.7); EOS % 1.2 % (0-4.0); GRAN # 6.8 (1.4-6.5); GRAN % 67.5 % (42.2-75.2); HEMOGLOBIN 14.7 g/dl (12.5-16.0); LYMPH # 2.6 (1.2-3.4); LYMPH % 25.8 % (20.0-51.0); MEAN CELL VOLUME 90 fl (80.0-100.0); MEAN CORPUSCULAR HEMOGLOBIN 31 pg (27.0-31.0); MEAN CORPUSCULAR HGB CONC 34 g/dl (33.0-37.0); MEAN PLATELET VOLUME 11.1 fl (7.4-10.4); MONO # 0.4 (0.1-0.6); MONO % 3.6 % (1.7-9.3); PLATELET COUNT 290 K/mm3 (130-400); RED BLOOD COUNT 4.77 M/mm3 (4.10-5.30); REDCELL DISTRIBUTION WIDTH-CV 14.2 % (11.5-14.5)
[2018-03-27 14:32] LABS: ALBUMIN 4.6 gm/dL (3.5-5.0); BILIRUBIN,TOTAL 0.6 mg/dL (0.0-1.0); C-REACTIVE PROTEIN 0.7 mg/dL (0.0-0.9); CALCIUM 9.7 mg/dL (8.4-10.2); CREATININE, serum 0.58 mg/dL (0.52-1.25); POTASSIUM 4.1 mmol/L (3.4-5.0); TOTAL PROTEIN 8.4 gm/dL (6.4-8.2)
[2018-03-27 14:36] LABS: MUCOUS Present /lpf; PH 6 (5-8); URINE APPEARANCE Hazy; URINE BACTERIA Rare /hpf; URINE BILIRUBIN Negative (NEGATIVE); URINE BLOOD Negative (NEGATIVE); URINE COLOR Yellow; URINE GLUCOSE Negative (NEGATIVE); URINE KETONE Negative (NEGATIVE); URINE LEUKOCYTE ESTERASE Negative (NEGATIVE); URINE NITRATE Negative (NEGATIVE); URINE PROTEIN(semi-quant) Negative (NEGATIVE); URINE RBC 0-2 /hpf; URINE UROBILINOGEN Negative (NEGATIVE)
[2018-03-27 15:19] VITALS: BP 150/100; PULSE 105
== END 2018-03-27 15:19 | disposition home or self-care (01) ==
LOC: COL.ER 13:33
PROVIDERS: Emergency Medicine
DX: R10.11 Right upper quadrant pain (principal); R10.13 Epigastric pain; K21.9 Gastro-esophageal reflux disease without esophagitis; Z90.710 Acquired absence of both cervix and uterus; Z90.49 Acquired absence of other specified parts of digestive tract; Z90.89 Acquired absence of other organs; Z87.891 Personal history of nicotine dependence
CPT/HCPCS: J1170; J2405; J7030

== ENCOUNTER 2018-03-30 12:52 | Emergency (ER) | payer BC ==
[~2018-03-30] VITALS: Ht 157.5 cm; Wt 68.2 kg
[2018-03-30 13:00] VITALS: TEMP 99.3
[2018-03-30 14:14] VITALS: BP 121/78; PULSE 75
== END 2018-03-30 14:14 | disposition home or self-care (01) ==
LOC: COL.ER 12:52
DX: R11.10 Vomiting, unspecified (principal); R10.9 Unspecified abdominal pain; Z90.89 Acquired absence of other organs; Z90.49 Acquired absence of other specified parts of digestive tract
CPT/HCPCS: J1170; J2405; J2550; J7030

== ENCOUNTER 2018-04-02 11:21 | Emergency (ER) | payer BC ==
[~2018-04-02] VITALS: Ht 157.5 cm; Wt 68.2 kg
[2018-04-02 11:24] VITALS: BP 146/102; TEMP 98.9
[2018-04-02 13:05] LABS: BASO # 0.1 (0.0-0.2); BASO % 0.8 % (0.0-2.0); EOS % 0.3 % (0-4.0); GRAN # 8.6 (1.4-6.5); GRAN % 76.4 % (42.2-75.2); HEMATOCRIT 45.8 % (37.0-47.0); HEMOGLOBIN 15.2 g/dl (12.5-16.0); LYMPH # 2.2 (1.2-3.4); LYMPH % 19.4 % (20.0-51.0); MEAN CELL VOLUME 91 fl (80.0-100.0); MEAN CORPUSCULAR HEMOGLOBIN 30 pg (27.0-31.0); MEAN CORPUSCULAR HGB CONC 33 g/dl (33.0-37.0); MEAN PLATELET VOLUME 11.2 fl (7.4-10.4); MONO # 0.3 (0.1-0.6); MONO % 2.5 % (1.7-9.3); PLATELET COUNT 378 K/mm3 (130-400); RED BLOOD COUNT 5.02 M/mm3 (4.10-5.30)
[2018-04-02 13:18] LABS: BILIRUBIN,TOTAL 0.5 mg/dL (0.0-1.0); CREATININE, serum 0.7 mg/dL (0.52-1.25); POTASSIUM 4.4 mmol/L (3.4-5.0); TOTAL PROTEIN 8.9 gm/dL (6.4-8.2)
[2018-04-02 14:18] VITALS: PULSE 120
== END 2018-04-02 14:20 | disposition home or self-care (01) ==
LOC: COL.ER 11:21
PROVIDERS: Physician Assistant
DX: G89.29 Other chronic pain (principal); R10.9 Unspecified abdominal pain; Z90.710 Acquired absence of both cervix and uterus; Z90.89 Acquired absence of other organs; Z90.49 Acquired absence of other specified parts of digestive tract
CPT/HCPCS: J1170; J2060; J2405; J2550

== ENCOUNTER 2018-04-06 17:34 | Emergency (ER) | payer BC ==
[~2018-04-06] VITALS: Ht 157.5 cm; Wt 68.2 kg
[2018-04-06 17:38] VITALS: TEMP 98.6
[2018-04-06 18:30] LABS: BASO # 0.1 (0.0-0.2); BASO % 0.9 % (0.0-2.0); EOS # 0.2 (0.0-0.7); EOS % 3.1 % (0-4.0); GRAN # 4.5 (1.4-6.5); GRAN % 61.2 % (42.2-75.2); HEMATOCRIT 44.1 % (37.0-47.0); HEMOGLOBIN 14.6 g/dl (12.5-16.0); LYMPH # 2.3 (1.2-3.4); LYMPH % 30.9 % (20.0-51.0); MEAN CELL VOLUME 92 fl (80.0-100.0); MEAN CORPUSCULAR HEMOGLOBIN 31 pg (27.0-31.0); MEAN CORPUSCULAR HGB CONC 33 g/dl (33.0-37.0); MEAN PLATELET VOLUME 11.5 fl (7.4-10.4); MONO # 0.2 (0.1-0.6); MONO % 3.1 % (1.7-9.3); PLATELET COUNT 316 K/mm3 (130-400); RED BLOOD COUNT 4.78 M/mm3 (4.10-5.30); REDCELL DISTRIBUTION WIDTH-CV 13.3 % (11.5-14.5)
[2018-04-06 18:46] LABS: ALBUMIN 4.5 gm/dL (3.5-5.0); BILIRUBIN,TOTAL 0.4 mg/dL (0.0-1.0); CALCIUM 9.6 mg/dL (8.4-10.2); CREATININE, serum 0.73 mg/dL (0.52-1.25); POTASSIUM 3.5 mmol/L (3.4-5.0); TOTAL PROTEIN 7.9 gm/dL (6.4-8.2)
[2018-04-06 20:46] VITALS: BP 130/89; PULSE 113
== END 2018-04-06 20:46 | disposition home or self-care (01) ==
LOC: COL.ER 17:34
PROVIDERS: Emergency Medicine
DX: R11.2 Nausea with vomiting, unspecified (principal); R07.89 Other chest pain; R10.9 Unspecified abdominal pain
CPT/HCPCS: C9113; J1630; J2060; J2550; J7030

== ENCOUNTER 2018-04-08 14:35 | Outpatient (RCR) | payer BC ==
[~2018-04-08] VITALS: Ht 157.5 cm; Wt 73.0 kg
[2018-04-08 15:25] VITALS: BP 143/79; PULSE 106; TEMP 99.2
== END 2018-04-08 16:35 | disposition home or self-care (01) ==
LOC: EUO 14:35
DX: K83.4 Spasm of sphincter of Oddi (principal); R10.9 Unspecified abdominal pain; R11.2 Nausea with vomiting, unspecified
CPT/HCPCS: J1170; J2550

== ENCOUNTER 2018-04-21 17:05 | Emergency (ER) | payer BC ==
[~2018-04-21] VITALS: Ht 157.5 cm; Wt 68.2 kg
[2018-04-21 17:18] VITALS: TEMP 99
[2018-04-21 19:02] VITALS: BP 132/69; PULSE 94
== END 2018-04-21 20:03 | disposition home or self-care (01) ==
LOC: COL.ER 17:05
DX: R10.11 Right upper quadrant pain (principal); G89.29 Other chronic pain; G43.909 Migraine, unspecified, not intractable, without status migrainosus; F41.9 Anxiety disorder, unspecified; F32.9 Major depressive disorder, single episode, unspecified; Z90.89 Acquired absence of other organs; Z90.49 Acquired absence of other specified parts of digestive tract; Z90.710 Acquired absence of both cervix and uterus; Z87.891 Personal history of nicotine dependence
CPT/HCPCS: J1170; J2060; J2550

== ENCOUNTER 2018-04-22 14:32 | Emergency (ER) | payer BC ==
[~2018-04-22] VITALS: Ht 157.5 cm; Wt 68.2 kg
[2018-04-22 14:42] VITALS: TEMP 100.3
[2018-04-22 15:45] VITALS: BP 144/91; PULSE 91
== END 2018-04-22 15:50 | disposition home or self-care (01) ==
LOC: COL.ER 14:32
DX: K83.8 Other specified diseases of biliary tract (principal); R10.9 Unspecified abdominal pain; G89.29 Other chronic pain; Z90.49 Acquired absence of other specified parts of digestive tract
CPT/HCPCS: J0780; J1170; J2060

== ENCOUNTER 2018-04-27 13:06 | Emergency (ER) | payer BC ==
[~2018-04-27] VITALS: Ht 157.5 cm; Wt 68.2 kg
[2018-04-27 13:36] VITALS: TEMP 100.5
[2018-04-27 15:03] LABS: BASO # 0.1 (0.0-0.2); BASO % 0.8 % (0.0-2.0); EOS % 0.4 % (0-4.0); GRAN # 8.2 (1.4-6.5); GRAN % 78.4 % (42.2-75.2); HEMATOCRIT 43.2 % (37.0-47.0); HEMOGLOBIN 14.6 g/dl (12.5-16.0); LYMPH # 1.8 (1.2-3.4); LYMPH % 17.1 % (20.0-51.0); MEAN CELL VOLUME 92 fl (80.0-100.0); MEAN CORPUSCULAR HEMOGLOBIN 31 pg (27.0-31.0); MEAN CORPUSCULAR HGB CONC 34 g/dl (33.0-37.0); MEAN PLATELET VOLUME 11.5 fl (7.4-10.4); MONO # 0.3 (0.1-0.6); MONO % 2.7 % (1.7-9.3); PLATELET COUNT 359 K/mm3 (130-400); RED BLOOD COUNT 4.69 M/mm3 (4.10-5.30); REDCELL DISTRIBUTION WIDTH-CV 13.6 % (11.5-14.5)
[2018-04-27 15:12] LABS: ALANINE AMINOTRANSFERASE 23 U/L (9-52); ALBUMIN 4.7 gm/dL (3.5-5.0); ALKALINE PHOSPHATASE 95 U/L (50-136); ANION GAP 8 mmol/L (7-16); AST,SGOT 24 U/L (15-37); BILIRUBIN,TOTAL 0.7 mg/dL (0.0-1.0); BLOOD UREA NITROGEN 7 mg/dL (7-17); C-REACTIVE PROTEIN 1.2 mg/dL (0.0-0.9); CARBON DIOXIDE 30 mmol/L (22-30); CHLORIDE 106 mmol/L (98-107); CREATININE, serum 0.73 mg/dL (0.52-1.25); GLUCOSE 88 mg/dL (74-106); LIPASE 61 U/L (23-300); POTASSIUM 3.5 mmol/L (3.4-5.0); SODIUM 144 mmol/L (137-145); TOTAL PROTEIN 8.3 gm/dL (6.4-8.2)
[2018-04-27 16:14] LABS: TROPONIN-I < 0.012 ng/mL (0.000-0.034)
[2018-04-27 17:14] VITALS: BP 118/82; PULSE 106
== END 2018-04-27 17:16 | disposition home or self-care (01) ==
LOC: COL.ER 13:06
PROVIDERS: Physician Assistant
DX: R11.10 Vomiting, unspecified (principal); G89.29 Other chronic pain; R10.9 Unspecified abdominal pain
CPT/HCPCS: J1200; J1630; J2060; J2405; J2550

== ENCOUNTER 2018-04-28 12:00 | Outpatient (CLI) | payer BC ==
[~2018-04-28] VITALS: Ht 157.5 cm; Wt 74.0 kg
[2018-04-28 12:31] VITALS: BP 127/69; PULSE 88; TEMP 98.4
== END 2018-04-28 13:15 | disposition home or self-care (01) ==
LOC: EUO 12:00
DX: R10.11 Right upper quadrant pain (principal)
CPT/HCPCS: J1170; J2550

== ENCOUNTER 2018-04-29 16:06 | Emergency (ER) | payer BC ==
[~2018-04-29] VITALS: Ht 157.5 cm; Wt 68.2 kg
[2018-04-29 16:10] VITALS: TEMP 99.3
[2018-04-29 16:40] LABS: COLLECTION METHOD CLEAN CATCH
[2018-04-29 16:43] LABS: BASO # 0.1 (0.0-0.2); BASO % 0.9 % (0.0-2.0); EOS # 0.1 (0.0-0.7); EOS % 1.5 % (0-4.0); GRAN # 5.8 (1.4-6.5); GRAN % 66.1 % (42.2-75.2); HEMATOCRIT 41.3 % (37.0-47.0); HEMOGLOBIN 13.7 g/dl (12.5-16.0); LYMPH # 2.4 (1.2-3.4); LYMPH % 27.5 % (20.0-51.0); MEAN CELL VOLUME 94 fl (80.0-100.0); MEAN CORPUSCULAR HEMOGLOBIN 31 pg (27.0-31.0); MEAN CORPUSCULAR HGB CONC 33 g/dl (33.0-37.0); MEAN PLATELET VOLUME 11.2 fl (7.4-10.4); MONO # 0.3 (0.1-0.6); MONO % 3.5 % (1.7-9.3); PLATELET COUNT 340 K/mm3 (130-400); REDCELL DISTRIBUTION WIDTH-CV 13.3 % (11.5-14.5)
[2018-04-29 16:48] LABS: MUCOUS Present /lpf; PH 6 (5-8); URINE APPEARANCE Hazy; URINE BACTERIA Rare /hpf; URINE BILIRUBIN Negative (NEGATIVE); URINE BLOOD Negative (NEGATIVE); URINE COLOR Yellow; URINE GLUCOSE Negative (NEGATIVE); URINE KETONE Negative (NEGATIVE); URINE LEUKOCYTE ESTERASE Negative (NEGATIVE); URINE NITRATE Negative (NEGATIVE); URINE PROTEIN(semi-quant) Negative (NEGATIVE); URINE RBC 0-2 /hpf; URINE UROBILINOGEN Negative (NEGATIVE)
[2018-04-29 16:56] LABS: C-REACTIVE PROTEIN 0.8 mg/dL (0.0-0.9)
[2018-04-29 17:30] VITALS: BP 131/85; PULSE 103
== END 2018-04-29 17:30 | disposition home or self-care (01) ==
LOC: COL.ER 16:06
PROVIDERS: Family Medicine
DX: R10.9 Unspecified abdominal pain (principal); Z90.89 Acquired absence of other organs; Z90.49 Acquired absence of other specified parts of digestive tract
CPT/HCPCS: J1630; J2550; J7030

== ENCOUNTER 2018-05-01 18:03 | Emergency (ER) | payer BC ==
[~2018-05-01] VITALS: Ht 157.5 cm; Wt 68.2 kg
[2018-05-01 20:24] VITALS: TEMP 98.6
[2018-05-01 21:16] VITALS: BP 137/99; PULSE 120
== END 2018-05-01 21:24 | disposition home or self-care (01) ==
LOC: COL.ER 18:03
DX: G89.29 Other chronic pain (principal); R10.9 Unspecified abdominal pain; F32.9 Major depressive disorder, single episode, unspecified; F41.9 Anxiety disorder, unspecified; G43.909 Migraine, unspecified, not intractable, without status migrainosus; Z90.89 Acquired absence of other organs; Z90.49 Acquired absence of other specified parts of digestive tract; Z87.891 Personal history of nicotine dependence
CPT/HCPCS: J1200; J2060; J3230

== ENCOUNTER 2018-05-02 14:44 | Outpatient (CLI) | payer BC ==
[~2018-05-02] VITALS: Ht 157.5 cm; Wt 95.5 kg
[2018-05-02 15:30] VITALS: BP 182/78; PULSE 99; TEMP 98
== END 2018-05-02 17:42 | disposition home or self-care (01) ==
LOC: EUO 14:44
DX: G43.A1 Cyclical vomiting, in migraine, intractable (principal); K83.8 Other specified diseases of biliary tract; Z79.899 Other long term (current) drug therapy
CPT/HCPCS: J1170; J2550; J7030

== ENCOUNTER 2018-05-08 10:46 | Emergency (ER) | payer BC ==
[~2018-05-08] VITALS: Ht 157.5 cm; Wt 52.3 kg
[2018-05-08 10:48] VITALS: TEMP 98
[2018-05-08] MEDS ORDERED: FENTANYL 12MCG TD (12:13)
[2018-05-08 13:19] VITALS: BP 131/83; PULSE 111
== END 2018-05-08 13:19 | disposition home or self-care (01) ==
LOC: COL.ER 10:46
DX: G89.29 Other chronic pain (principal); R11.2 Nausea with vomiting, unspecified; R10.11 Right upper quadrant pain; G43.909 Migraine, unspecified, not intractable, without status migrainosus; Z87.891 Personal history of nicotine dependence; Z88.5 Allergy status to narcotic agent
CPT/HCPCS: J1630; J2405; J2550

== ENCOUNTER 2018-05-20 09:22 | Emergency (ER) | payer BC ==
[~2018-05-20] VITALS: Ht 157.5 cm; Wt 68.2 kg
[2018-05-20 09:29] VITALS: BP 145/92; TEMP 99.2
[2018-05-20 11:04] VITALS: PULSE 112
== END 2018-05-20 11:07 | disposition home or self-care (01) ==
LOC: COL.ER 09:22
DX: G89.29 Other chronic pain (principal); R11.10 Vomiting, unspecified; R10.11 Right upper quadrant pain; K21.9 Gastro-esophageal reflux disease without esophagitis; G43.909 Migraine, unspecified, not intractable, without status migrainosus; Z87.891 Personal history of nicotine dependence; Z90.710 Acquired absence of both cervix and uterus; Z90.49 Acquired absence of other specified parts of digestive tract; Z90.89 Acquired absence of other organs
CPT/HCPCS: J1630; J2405; J2550

== ENCOUNTER 2018-05-21 17:31 | Emergency (ER) | payer BC ==
[~2018-05-21] VITALS: Ht 157.5 cm; Wt 68.2 kg
[2018-05-21 17:37] VITALS: BP 149/90; PULSE 105; TEMP 100.3
== END 2018-05-21 18:52 | disposition home or self-care (01) ==
LOC: COL.ER 17:31
DX: K83.8 Other specified diseases of biliary tract (principal); Z79.891 Long term (current) use of opiate analgesic
CPT/HCPCS: J1200; J1630; J2060

== ENCOUNTER 2018-05-23 14:57 | Outpatient (RCR) | payer BC ==
[~2018-05-23] VITALS: Ht 157.5 cm; Wt 74.0 kg
[2018-05-23 15:17] VITALS: BP 131/88; PULSE 109; TEMP 98.5
== END 2018-05-23 15:45 | disposition home or self-care (01) ==
LOC: EUO 14:57
DX: K83.4 Spasm of sphincter of Oddi (principal); R11.2 Nausea with vomiting, unspecified
CPT/HCPCS: J1170; J2550

== ENCOUNTER 2018-05-24 14:58 | Emergency (ER) | payer BC ==
[~2018-05-24] VITALS: Ht 157.5 cm; Wt 68.2 kg
[2018-05-24 15:15] VITALS: TEMP 99.6
[2018-05-24 15:52] LABS: BASO # 0.1 (0.0-0.2); BASO % 0.7 % (0.0-2.0); EOS # 0.2 (0.0-0.7); EOS % 1.8 % (0-4.0); GRAN # 5.7 (1.4-6.5); GRAN % 59.9 % (42.2-75.2); HEMATOCRIT 43.5 % (37.0-47.0); HEMOGLOBIN 14.7 g/dl (12.5-16.0); LYMPH # 3.2 (1.2-3.4); LYMPH % 33.9 % (20.0-51.0); MEAN CELL VOLUME 91 fl (80.0-100.0); MEAN CORPUSCULAR HEMOGLOBIN 31 pg (27.0-31.0); MEAN CORPUSCULAR HGB CONC 34 g/dl (33.0-37.0); MEAN PLATELET VOLUME 11.1 fl (7.4-10.4); MONO # 0.3 (0.1-0.6); MONO % 3.1 % (1.7-9.3); PLATELET COUNT 393 K/mm3 (130-400); RED BLOOD COUNT 4.77 M/mm3 (4.10-5.30); REDCELL DISTRIBUTION WIDTH-CV 12.9 % (11.5-14.5)
[2018-05-24 16:04] LABS: ALBUMIN 4.5 gm/dL (3.5-5.0); BILIRUBIN,TOTAL 0.3 mg/dL (0.0-1.0); CALCIUM 10.2 mg/dL (8.4-10.2); CREATININE, serum 0.73 mg/dL (0.52-1.25); POTASSIUM 3.6 mmol/L (3.4-5.0); TOTAL PROTEIN 7.9 gm/dL (6.4-8.2)
[2018-05-24 16:48] VITALS: BP 140/85; PULSE 105
== END 2018-05-24 17:07 | disposition home or self-care (01) ==
LOC: COL.ER 14:58
PROVIDERS: Emergency Medicine
DX: G89.29 Other chronic pain (principal); R11.2 Nausea with vomiting, unspecified; R10.9 Unspecified abdominal pain
CPT/HCPCS: J1200; J1630; J2405; J7030

== ENCOUNTER 2018-05-27 15:58 | Emergency (ER) | payer BC ==
[~2018-05-27] VITALS: Ht 157.5 cm; Wt 68.2 kg
[2018-05-27 16:06] VITALS: TEMP 97.8
[2018-05-27 17:14] VITALS: BP 134/85; PULSE 97
== END 2018-05-27 17:18 | disposition home or self-care (01) ==
LOC: COL.ER 15:58
DX: R10.9 Unspecified abdominal pain (principal); R11.0 Nausea
CPT/HCPCS: J1200; J1630; J2060; J2550

== ENCOUNTER 2018-05-28 09:41 | Outpatient (CLI) | payer BC ==
[2018-05-28 11:16] VITALS: BP 129/97; PULSE 93; TEMP 98.8
== END 2018-05-28 11:45 | disposition home or self-care (01) ==
LOC: EUO 09:41
DX: K83.8 Other specified diseases of biliary tract (principal)
CPT/HCPCS: J1170; J2550

== ENCOUNTER 2018-06-11 15:04 | Emergency (ER) | payer BC ==
[~2018-06-11] VITALS: Ht 157.5 cm; Wt 68.2 kg
[2018-06-11 15:11] VITALS: BP 174/97; PULSE 129; TEMP 98.5
[2018-06-11] MEDS ORDERED: ZOFRAN ODT4 MG PO (15:22)
== END 2018-06-11 17:40 | disposition home or self-care (01) ==
LOC: COL.ER 15:04
DX: R10.9 Unspecified abdominal pain (principal); G89.29 Other chronic pain
CPT/HCPCS: J1630; J2060; J2550

== ENCOUNTER 2018-06-13 14:22 | Outpatient (CLI) | payer BC ==
[~2018-06-13] VITALS: Ht 157.5 cm; Wt 73.0 kg
[2018-06-13 14:33] VITALS: BP 134/80; PULSE 92; TEMP 98.2
[2018-06-13] MEDS ORDERED: BENADRYL 50M50 MG/ML IJ (14:45)
--- NOTE | 2018-06-13 15:25 | NUR ---
PT DISCHARGE BY THIS NURSE, HERE TO PICK PT UP.
== END 2018-06-13 15:25 | disposition home or self-care (01) ==
LOC: EUO 14:22
DX: K83.8 Other specified diseases of biliary tract (principal)
CPT/HCPCS: J1170; J2550

== ENCOUNTER 2018-06-16 12:07 | Emergency (ER) | payer BC ==
[~2018-06-16] VITALS: Ht 157.5 cm; Wt 69.1 kg
[~2018-06-16 12:07] MED LIST changes: +BENADRYL 50M50 MG/ML IJ
[2018-06-16 12:27] VITALS: PULSE 126; TEMP 99.5
[2018-06-16 16:02] LABS: BASO # 0.1 (0.0-0.2); EOS # 0.1 (0.0-0.7); EOS % 0.5 % (0-4.0); GRAN # 7.2 (1.4-6.5); GRAN % 68.9 % (42.2-75.2); HEMATOCRIT 45.7 % (37.0-47.0); HEMOGLOBIN 15.4 g/dl (12.5-16.0); LYMPH # 2.6 (1.2-3.4); LYMPH % 24.7 % (20.0-51.0); MEAN CELL VOLUME 91 fl (80.0-100.0); MEAN CORPUSCULAR HEMOGLOBIN 31 pg (27.0-31.0); MEAN CORPUSCULAR HGB CONC 34 g/dl (33.0-37.0); MEAN PLATELET VOLUME 10.8 fl (7.4-10.4); MONO # 0.5 (0.1-0.6); MONO % 4.4 % (1.7-9.3); PLATELET COUNT 411 K/mm3 (130-400); RED BLOOD COUNT 5.02 M/mm3 (4.10-5.30); REDCELL DISTRIBUTION WIDTH-CV 12.8 % (11.5-14.5)
[2018-06-16 16:04] LABS: ALBUMIN 4.9 gm/dL (3.5-5.0); BILIRUBIN,TOTAL 0.6 mg/dL (0.0-1.0); CALCIUM 10.4 mg/dL (8.4-10.2); CREATININE, serum 0.75 mg/dL (0.52-1.25); POTASSIUM 4.4 mmol/L (3.4-5.0); TOTAL PROTEIN 8.5 gm/dL (6.4-8.2)
[2018-06-16 16:05] LABS: COLLECTION METHOD CLEAN CATCH
[2018-06-16 16:17] LABS: MUCOUS Present /lpf; PH 5 (5-8); URINE APPEARANCE Clear; URINE BACTERIA Rare /hpf; URINE BILIRUBIN Negative (NEGATIVE); URINE BLOOD Negative (NEGATIVE); URINE COLOR Yellow; URINE GLUCOSE Negative (NEGATIVE); URINE KETONE Negative (NEGATIVE); URINE LEUKOCYTE ESTERASE Negative (NEGATIVE); URINE NITRATE Negative (NEGATIVE); URINE PROTEIN(semi-quant) Negative (NEGATIVE); URINE RBC 0-2 /hpf; URINE UROBILINOGEN Negative (NEGATIVE)
[2018-06-16 16:30] VITALS: BP 122/99
== END 2018-06-16 15:49 | disposition home or self-care (01) ==
LOC: COL.ER 12:07
PROVIDERS: Emergency Medicine
DX: K83.8 Other specified diseases of biliary tract (principal); R10.9 Unspecified abdominal pain; G89.29 Other chronic pain; Z87.891 Personal history of nicotine dependence; Z90.49 Acquired absence of other specified parts of digestive tract; Z90.710 Acquired absence of both cervix and uterus; Z79.891 Long term (current) use of opiate analgesic
CPT/HCPCS: J1200; J1630; J2060; J2405

== ENCOUNTER 2018-06-22 15:01 | Emergency (ER) | payer BC ==
[~2018-06-22] VITALS: Ht 157.5 cm; Wt 70.5 kg
[2018-06-22 15:08] VITALS: BP 156/80; TEMP 99.7
[2018-06-22 15:44] LABS: BASO # 0.1 (0.0-0.2); BASO % 0.6 % (0.0-2.0); EOS % 0.4 % (0-4.0); GRAN # 6.7 (1.4-6.5); GRAN % 72.4 % (42.2-75.2); HEMOGLOBIN 16.3 g/dl (12.5-16.0); LYMPH # 2.1 (1.2-3.4); LYMPH % 22.9 % (20.0-51.0); MEAN CELL VOLUME 90 fl (80.0-100.0); MEAN CORPUSCULAR HEMOGLOBIN 31 pg (27.0-31.0); MEAN CORPUSCULAR HGB CONC 34 g/dl (33.0-37.0); MEAN PLATELET VOLUME 10.7 fl (7.4-10.4); MONO # 0.3 (0.1-0.6); MONO % 3.4 % (1.7-9.3); PLATELET COUNT 393 K/mm3 (130-400); RED BLOOD COUNT 5.33 M/mm3 (4.10-5.30); REDCELL DISTRIBUTION WIDTH-CV 12.4 % (11.5-14.5)
[2018-06-22 16:03] LABS: ALANINE AMINOTRANSFERASE 14 U/L (9-52); ALBUMIN 4.6 gm/dL (3.5-5.0); ALKALINE PHOSPHATASE 91 U/L (50-136); ANION GAP 8 mmol/L (7-16); AST,SGOT 30 U/L (15-37); BILIRUBIN,TOTAL 0.5 mg/dL (0.0-1.0); BLOOD UREA NITROGEN 14 mg/dL (7-17); CALCIUM 10.5 mg/dL (8.4-10.2); CARBON DIOXIDE 27 mmol/L (22-30); CHLORIDE 108 mmol/L (98-107); CREATININE, serum 0.75 mg/dL (0.52-1.25); GLUCOSE 104 mg/dL (74-106); LIPASE 205 U/L (23-300); POTASSIUM 3.6 mmol/L (3.4-5.0); SODIUM 143 mmol/L (137-145); TOTAL PROTEIN 8.4 gm/dL (6.4-8.2)
[2018-06-22 16:05] LABS: C-REACTIVE PROTEIN < 0.5 mg/dL (0.0-0.9)
[2018-06-22 16:37] LABS: COLLECTION METHOD CLEAN CATCH
[2018-06-22 16:41] LABS: MUCOUS Present /lpf; PH 5 (5-8); URINE APPEARANCE Clear; URINE BACTERIA None Seen /hpf; URINE BILIRUBIN Negative (NEGATIVE); URINE BLOOD Negative (NEGATIVE); URINE COLOR Yellow; URINE GLUCOSE Negative (NEGATIVE); URINE KETONE Negative (NEGATIVE); URINE LEUKOCYTE ESTERASE Negative (NEGATIVE); URINE NITRATE Negative (NEGATIVE); URINE PROTEIN(semi-quant) Negative (NEGATIVE); URINE RBC 0-2 /hpf; URINE UROBILINOGEN Negative (NEGATIVE)
[2018-06-22 16:53] VITALS: PULSE 124
== END 2018-06-22 16:55 | disposition home or self-care (01) ==
LOC: COL.ER 15:01
PROVIDERS: Emergency Medicine
DX: G89.29 Other chronic pain (principal); R10.9 Unspecified abdominal pain; Z90.89 Acquired absence of other organs; Z90.710 Acquired absence of both cervix and uterus; Z90.49 Acquired absence of other specified parts of digestive tract
CPT/HCPCS: J1170; J2405; J2550; J7030

== ENCOUNTER 2018-06-24 19:42 | Emergency (ER) | payer BC ==
[~2018-06-24] VITALS: Ht 157.5 cm; Wt 68.2 kg
[2018-06-24 19:47] VITALS: TEMP 99.5
[2018-06-24 20:16] LABS: COLLECTION METHOD CLEAN CATCH
[2018-06-24 20:21] LABS: MUCOUS Present /lpf; PH 6 (5-8); SQUAMOUS EPITHELIAL 0-2 /hpf; URINE APPEARANCE Clear; URINE BACTERIA Rare /hpf; URINE BILIRUBIN Negative (NEGATIVE); URINE BLOOD Negative (NEGATIVE); URINE COLOR Yellow; URINE GLUCOSE Negative (NEGATIVE); URINE KETONE Negative (NEGATIVE); URINE LEUKOCYTE ESTERASE Negative (NEGATIVE); URINE NITRATE Negative (NEGATIVE); URINE PROTEIN(semi-quant) Negative (NEGATIVE); URINE RBC 0-2 /hpf; URINE UROBILINOGEN Negative (NEGATIVE)
[2018-06-24 20:34] LABS: BASO # 0.1 (0.0-0.2); BASO % 0.7 % (0.0-2.0); EOS % 0.4 % (0-4.0); GRAN # 5.5 (1.4-6.5); GRAN % 65.6 % (42.2-75.2); HEMATOCRIT 44.2 % (37.0-47.0); HEMOGLOBIN 15.1 g/dl (12.5-16.0); LYMPH # 2.4 (1.2-3.4); LYMPH % 28.7 % (20.0-51.0); MEAN CELL VOLUME 90 fl (80.0-100.0); MEAN CORPUSCULAR HEMOGLOBIN 31 pg (27.0-31.0); MEAN CORPUSCULAR HGB CONC 34 g/dl (33.0-37.0); MEAN PLATELET VOLUME 10.9 fl (7.4-10.4); MONO # 0.4 (0.1-0.6); MONO % 4.2 % (1.7-9.3); PLATELET COUNT 378 K/mm3 (130-400); RED BLOOD COUNT 4.92 M/mm3 (4.10-5.30); REDCELL DISTRIBUTION WIDTH-CV 12.4 % (11.5-14.5)
[2018-06-24 20:51] LABS: ALANINE AMINOTRANSFERASE 19 U/L (9-52); ALBUMIN 4.4 gm/dL (3.5-5.0); ALKALINE PHOSPHATASE 84 U/L (50-136); ANION GAP 8 mmol/L (7-16); AST,SGOT 24 U/L (15-37); BILIRUBIN,TOTAL 0.3 mg/dL (0.0-1.0); BLOOD UREA NITROGEN 12 mg/dL (7-17); CALCIUM 9.5 mg/dL (8.4-10.2); CARBON DIOXIDE 26 mmol/L (22-30); CHLORIDE 108 mmol/L (98-107); CREATININE, serum 0.62 mg/dL (0.52-1.25); GLUCOSE 118 mg/dL (74-106); LIPASE 304 U/L (23-300); POTASSIUM 3.6 mmol/L (3.4-5.0); SODIUM 142 mmol/L (137-145); TOTAL PROTEIN 7.9 gm/dL (6.4-8.2)
[2018-06-24 20:53] LABS: C-REACTIVE PROTEIN < 0.5 mg/dL (0.0-0.9)
[2018-06-24 21:58] VITALS: BP 143/89; PULSE 115
== END 2018-06-24 22:00 | disposition home or self-care (01) ==
LOC: COL.ER 19:42
PROVIDERS: Physician Assistant
DX: K83.8 Other specified diseases of biliary tract (principal); R11.2 Nausea with vomiting, unspecified
CPT/HCPCS: J1170; J1630; J2060; J2550

== ENCOUNTER 2018-07-01 14:01 | Emergency (ER) | payer BC ==
[~2018-07-01] VITALS: Ht 157.5 cm; Wt 72.7 kg
[2018-07-01 14:06] VITALS: BP 128/68
[2018-07-01 15:54] VITALS: PULSE 95; TEMP 97.3
== END 2018-07-01 15:54 | disposition home or self-care (01) ==
LOC: COL.ER 14:01
DX: G89.29 Other chronic pain (principal); R10.9 Unspecified abdominal pain; Z90.49 Acquired absence of other specified parts of digestive tract; Z90.710 Acquired absence of both cervix and uterus; Z90.89 Acquired absence of other organs
CPT/HCPCS: J1200; J2060; J2405

== ENCOUNTER 2018-07-06 11:49 | Emergency (ER) | payer BC ==
[~2018-07-06] VITALS: Ht 157.5 cm; Wt 68.2 kg
[2018-07-06 12:11] VITALS: BP 136/81; PULSE 136; TEMP 99
== END 2018-07-06 13:45 | disposition left against medical advice (07) ==
LOC: COL.ER 11:49
DX: R11.10 Vomiting, unspecified (principal); G89.29 Other chronic pain; R10.9 Unspecified abdominal pain; I10 Essential (primary) hypertension; G43.909 Migraine, unspecified, not intractable, without status migrainosus; F32.9 Major depressive disorder, single episode, unspecified; F41.9 Anxiety disorder, unspecified; Z90.710 Acquired absence of both cervix and uterus; Z90.49 Acquired absence of other specified parts of digestive tract; Z90.89 Acquired absence of other organs; Z87.891 Personal history of nicotine dependence; Z90.722 Acquired absence of ovaries, bilateral

== ENCOUNTER 2018-07-07 13:32 | Outpatient (CLI) | payer BC ==
[~2018-07-07] VITALS: Ht 157.5 cm; Wt 73.2 kg
[2018-07-07 14:00] VITALS: BP 121/71; PULSE 81; TEMP 98.5
--- NOTE | 2018-07-07 15:16 | NUR ---
PT ESCORTED OUT AT THIS TIME. HERE TO PICK PT UP.
== END 2018-07-07 15:17 | disposition home or self-care (01) ==
LOC: EUO 13:32
DX: R11.2 Nausea with vomiting, unspecified (principal); Z87.19 Personal history of other diseases of the digestive system
CPT/HCPCS: J1170; J2550

== ENCOUNTER 2018-09-21 17:59 | Emergency (ER) | payer BC ==
[~2018-09-21] VITALS: Ht 157.5 cm; Wt 72.7 kg
[2018-09-21 20:37] LABS: BASO # 0.1 (0.0-0.2); BASO % 0.7 % (0.0-2.0); EOS % 0.4 % (0-4.0); GRAN # 7.9 (1.4-6.5); GRAN % 76.6 % (42.2-75.2); HEMATOCRIT 46.7 % (37.0-47.0); HEMOGLOBIN 16.1 g/dl (12.5-16.0); MEAN CELL VOLUME 87 fl (80.0-100.0); MEAN CORPUSCULAR HEMOGLOBIN 30 pg (27.0-31.0); MEAN CORPUSCULAR HGB CONC 35 g/dl (33.0-37.0); MEAN PLATELET VOLUME 11.1 fl (7.4-10.4); MONO # 0.3 (0.1-0.6); MONO % 2.8 % (1.7-9.3); PLATELET COUNT 334 K/mm3 (130-400); RED BLOOD COUNT 5.36 M/mm3 (4.10-5.30); REDCELL DISTRIBUTION WIDTH-CV 12.1 % (11.5-14.5)
[2018-09-21 20:51] LABS: ALBUMIN 4.6 gm/dL (3.5-5.0); BILIRUBIN,TOTAL 0.3 mg/dL (0.0-1.0); C-REACTIVE PROTEIN 0.8 mg/dL (0.0-0.9); CALCIUM 10.1 mg/dL (8.4-10.2); CREATININE, serum 0.58 (0.52-1.25); POTASSIUM 4.1 mmol/L (3.4-5.0); TOTAL PROTEIN 8.5 gm/dL (6.4-8.2)
[2018-09-21] MEDS ORDERED: ZOFRAN ODT4 MG PO (21:36)
[2018-09-21 21:56] VITALS: BP 144/81; PULSE 104; TEMP 98.1
== END 2018-09-21 22:23 | disposition home or self-care (01) ==
LOC: COL.ER 17:59
PROVIDERS: Physician Assistant
DX: R10.9 Unspecified abdominal pain (principal); G89.29 Other chronic pain; Z90.49 Acquired absence of other specified parts of digestive tract; Z90.89 Acquired absence of other organs; Z90.710 Acquired absence of both cervix and uterus; Z88.5 Allergy status to narcotic agent
CPT/HCPCS: J1170; J2405; J2550; J7030

== ENCOUNTER 2018-09-23 15:14 | Emergency (ER) | payer BC ==
[~2018-09-23] VITALS: Ht 157.5 cm; Wt 72.7 kg
[2018-09-23 15:26] VITALS: TEMP 99.3
[2018-09-23 17:18] VITALS: BP 150/78; PULSE 102
== END 2018-09-23 17:19 | disposition home or self-care (01) ==
LOC: COL.ER 15:14
DX: R10.10 Upper abdominal pain, unspecified (principal); R11.10 Vomiting, unspecified; I10 Essential (primary) hypertension; Z90.89 Acquired absence of other organs; Z87.891 Personal history of nicotine dependence
CPT/HCPCS: J2550

== ENCOUNTER 2018-10-17 20:22 | Emergency (ER) | payer BC ==
[~2018-10-17] VITALS: Ht 157.5 cm; Wt 81.8 kg
[2018-10-17 20:31] VITALS: BP 135/91; PULSE 122; TEMP 98.9
== END 2018-10-17 22:20 | disposition home or self-care (01) ==
LOC: COL.ER 20:22
DX: R10.11 Right upper quadrant pain (principal); Z90.89 Acquired absence of other organs; Z90.710 Acquired absence of both cervix and uterus; Z87.891 Personal history of nicotine dependence
CPT/HCPCS: J1170; J2550

== ENCOUNTER 2018-10-22 17:05 | Emergency (ER) | payer BC ==
[~2018-10-22] VITALS: Ht 157.5 cm; Wt 72.7 kg
[2018-10-22 17:24] VITALS: BP 151/103; TEMP 98.5
[2018-10-22 18:43] VITALS: PULSE 89
== END 2018-10-22 18:43 | disposition home or self-care (01) ==
LOC: COL.ER 17:05
DX: G43.909 Migraine, unspecified, not intractable, without status migrainosus (principal); Z90.49 Acquired absence of other specified parts of digestive tract; Z90.89 Acquired absence of other organs; Z90.710 Acquired absence of both cervix and uterus; Z87.891 Personal history of nicotine dependence
CPT/HCPCS: J0595; J2550

== ENCOUNTER 2018-11-13 14:31 | Emergency (ER) | payer BC ==
[~2018-11-13] VITALS: Ht 157.5 cm; Wt 72.7 kg
[~2018-11-13 14:31] MED LIST changes: +CEPHALEXIN500 M1 PO
[2018-11-13 14:34] VITALS: BP 159/80; PULSE 98; TEMP 98.6
== END 2018-11-13 16:12 | disposition home or self-care (01) ==
LOC: COL.ER 14:31
DX: R51 Headache (principal); Z86.69 Personal history of other diseases of the nervous system and sense organs; Z90.49 Acquired absence of other specified parts of digestive tract; Z90.710 Acquired absence of both cervix and uterus; Z87.891 Personal history of nicotine dependence
CPT/HCPCS: J1200; J2765

== ENCOUNTER 2018-11-14 17:07 | Emergency (ER) | payer BC ==
[~2018-11-14] VITALS: Ht 157.5 cm; Wt 72.7 kg
[2018-11-14 17:18] VITALS: BP 155/108; TEMP 98.4
[2018-11-14 20:00] VITALS: PULSE 92
== END 2018-11-14 20:00 | disposition home or self-care (01) ==
LOC: COL.ER 17:07
DX: R51 Headache (principal); Z86.69 Personal history of other diseases of the nervous system and sense organs
CPT/HCPCS: J1170

== ENCOUNTER 2018-11-16 02:12 | Emergency (ER) | payer BC ==
[~2018-11-16] VITALS: Ht 157.5 cm; Wt 68.2 kg
[2018-11-16 02:14] VITALS: TEMP 97.5
[2018-11-16 02:45] LABS: BASO # 0.1 (0.0-0.2); BASO % 0.8 % (0.0-2.0); EOS # 0.1 (0.0-0.7); EOS % 1.3 % (0-4.0); GRAN # 5.5 (1.4-6.5); GRAN % 60.4 % (42.2-75.2); HEMATOCRIT 44.3 % (37.0-47.0); HEMOGLOBIN 15.1 g/dl (12.5-16.0); LYMPH % 32.6 % (20.0-51.0); MEAN CELL VOLUME 89 fl (80.0-100.0); MEAN CORPUSCULAR HEMOGLOBIN 30 pg (27.0-31.0); MEAN CORPUSCULAR HGB CONC 34 g/dl (33.0-37.0); MEAN PLATELET VOLUME 11.3 fl (7.4-10.4); MONO # 0.4 (0.1-0.6); MONO % 4.5 % (1.7-9.3); PLATELET COUNT 309 K/mm3 (130-400); RED BLOOD COUNT 4.97 M/mm3 (4.10-5.30); REDCELL DISTRIBUTION WIDTH-CV 12.9 % (11.5-14.5)
[2018-11-16 02:56] LABS: ALANINE AMINOTRANSFERASE 13 U/L (9-52); ALBUMIN 4.4 gm/dL (3.5-5.0); ALKALINE PHOSPHATASE 102 U/L (50-136); ANION GAP 13 mmol/L (7-16); AST,SGOT 27 U/L (15-37); BILIRUBIN,TOTAL 0.3 mg/dL (0.0-1.0); BLOOD UREA NITROGEN 6 mg/dL (7-17); CALCIUM 10.1 mg/dL (8.4-10.2); CARBON DIOXIDE 28 mmol/L (22-30); CHLORIDE 106 mmol/L (98-107); CREATININE, serum 0.72 (0.52-1.25); GLUCOSE 83 mg/dL (74-106); POTASSIUM 3.3 mmol/L (3.4-5.0); SODIUM 148 mmol/L (137-145)
[2018-11-16 02:57] LABS: ACETAMINOPHEN < 10 ug/mL (10-30); ALCOHOL(ethanol),MEDICAL < 10 mg/dL; SALICYLATE < 1.0 mg/dL
[2018-11-16 03:11] LABS: THYROXINE (T4)-TOTAL 8.5 ug/dL (5.5-11.0)
[2018-11-16 05:56] LABS: COLLECTION METHOD CLEAN CATCH
[2018-11-16 06:02] LABS: MUCOUS Present /lpf; PH 6 (5-8); SQUAMOUS EPITHELIAL 20-50 /hpf; URINE APPEARANCE Cloudy; URINE BACTERIA Rare /hpf; URINE BILIRUBIN Negative (NEGATIVE); URINE BLOOD Negative (NEGATIVE); URINE COLOR Yellow; URINE GLUCOSE Negative (NEGATIVE); URINE KETONE Negative (NEGATIVE); URINE LEUKOCYTE ESTERASE 1+ (NEGATIVE); URINE NITRATE Negative (NEGATIVE); URINE PROTEIN(semi-quant) Negative (NEGATIVE); URINE RBC 0-2 /hpf; URINE UROBILINOGEN Negative (NEGATIVE)
[2018-11-16 06:09] LABS: TRICYCLIC ANTIDEPRESS URINE NEGATIVE
[2018-11-16 14:30] VITALS: BP 132/89
[2018-11-16 16:30] VITALS: PULSE 82
== END 2018-11-16 16:33 ==
LOC: COL.ER 02:12
PROVIDERS: Emergency Medicine
DX: R45.851 Suicidal ideations (principal); F32.9 Major depressive disorder, single episode, unspecified

== ENCOUNTER 2018-12-16 08:41 | Emergency (ER) | payer BC ==
[~2018-12-16] VITALS: Ht 157.5 cm; Wt 81.8 kg
[2018-12-16 08:49] VITALS: BP 142/88; PULSE 118; TEMP 98.7
[2018-12-16] MEDS ORDERED: FENTANYL 50MCG TD (09:04)
[2018-12-16] MEDS ORDERED: PHENERGAN25 MG RC (09:45)
== END 2018-12-16 09:56 | disposition home or self-care (01) ==
LOC: COL.ER 08:41
DX: R11.2 Nausea with vomiting, unspecified (principal); R10.11 Right upper quadrant pain; G43.909 Migraine, unspecified, not intractable, without status migrainosus; F32.9 Major depressive disorder, single episode, unspecified; F41.9 Anxiety disorder, unspecified; K21.9 Gastro-esophageal reflux disease without esophagitis; Z90.49 Acquired absence of other specified parts of digestive tract; Z90.710 Acquired absence of both cervix and uterus
CPT/HCPCS: J1170; J2550

== ENCOUNTER 2018-12-18 16:55 | Emergency (ER) | payer BC ==
[~2018-12-18] VITALS: Ht 157.5 cm; Wt 81.8 kg
[~2018-12-18 16:55] MED LIST changes: +FENTANYL 50MCG TD
[2018-12-18 17:07] VITALS: TEMP 96.7
[2018-12-18 19:07] VITALS: BP 121/80; PULSE 97
== END 2018-12-18 19:09 | disposition home or self-care (01) ==
LOC: COL.ER 16:55
DX: R10.11 Right upper quadrant pain (principal); G89.29 Other chronic pain; G43.909 Migraine, unspecified, not intractable, without status migrainosus; Z79.891 Long term (current) use of opiate analgesic

== ENCOUNTER 2018-12-30 16:18 | Emergency (ER) | payer BC ==
[~2018-12-30] VITALS: Ht 157.5 cm; Wt 77.3 kg
[2018-12-30 16:43] VITALS: BP 134/76; TEMP 99.3
[2018-12-30 17:35] LABS: COLLECTION METHOD CLEAN CATCH
[2018-12-30 17:41] LABS: PH 6 (5-8); SQUAMOUS EPITHELIAL 0-2 /hpf; URINE APPEARANCE Clear; URINE BACTERIA Rare /hpf; URINE BILIRUBIN Negative (NEGATIVE); URINE BLOOD Negative (NEGATIVE); URINE COLOR Yellow; URINE GLUCOSE Negative (NEGATIVE); URINE KETONE Negative (NEGATIVE); URINE LEUKOCYTE ESTERASE Trace (NEGATIVE); URINE NITRATE Negative (NEGATIVE); URINE PROTEIN(semi-quant) Negative (NEGATIVE); URINE RBC 0-2 /hpf; URINE UROBILINOGEN Negative (NEGATIVE)
[2018-12-30 17:49] LABS: BASO # 0.1 (0.0-0.2); BASO % 0.7 % (0.0-2.0); EOS # 0.3 (0.0-0.7); EOS % 4.1 % (0-4.0); GRAN # 4.4 (1.4-6.5); GRAN % 62.5 % (42.2-75.2); HEMATOCRIT 42.7 % (37.0-47.0); HEMOGLOBIN 14.2 g/dl (12.5-16.0); LYMPH % 27.5 % (20.0-51.0); MEAN CELL VOLUME 91 fl (80.0-100.0); MEAN CORPUSCULAR HEMOGLOBIN 30 pg (27.0-31.0); MEAN CORPUSCULAR HGB CONC 33 g/dl (33.0-37.0); MEAN PLATELET VOLUME 10.8 fl (7.4-10.4); MONO # 0.4 (0.1-0.6); MONO % 4.9 % (1.7-9.3); PLATELET COUNT 277 K/mm3 (130-400); RED BLOOD COUNT 4.72 M/mm3 (4.10-5.30); REDCELL DISTRIBUTION WIDTH-CV 12.8 % (11.5-14.5)
[2018-12-30 18:06] LABS: ALBUMIN 4.4 gm/dL (3.5-5.0); BILIRUBIN,TOTAL 0.3 mg/dL (0.0-1.0); CALCIUM 9.7 mg/dL (8.4-10.2); CREATININE, serum 0.7 (0.52-1.25); TOTAL PROTEIN 7.9 gm/dL (6.4-8.2)
[2018-12-30] MEDS ORDERED: MACROBID 1100 MG/CAP PO (18:22)
[2018-12-30 18:34] VITALS: PULSE 85
== END 2018-12-30 18:34 | disposition home or self-care (01) ==
LOC: COL.ER 16:18
PROVIDERS: Physician Assistant
DX: K83.8 Other specified diseases of biliary tract (principal); R11.2 Nausea with vomiting, unspecified; R30.0 Dysuria; F41.9 Anxiety disorder, unspecified; F32.9 Major depressive disorder, single episode, unspecified; Z90.49 Acquired absence of other specified parts of digestive tract; Z90.89 Acquired absence of other organs
CPT/HCPCS: J1170; J2550

== ENCOUNTER 2019-01-01 15:04 | Emergency (ER) | payer BC ==
[~2019-01-01] VITALS: Ht 157.5 cm; Wt 77.3 kg
[2019-01-01 15:50] LABS: BASO # 0.1 (0.0-0.2); BASO % 0.9 % (0.0-2.0); EOS # 0.3 (0.0-0.7); EOS % 4.4 % (0-4.0); GRAN # 4.5 (1.4-6.5); GRAN % 60.3 % (42.2-75.2); HEMATOCRIT 41.8 % (37.0-47.0); HEMOGLOBIN 14.3 g/dl (12.5-16.0); LYMPH # 2.2 (1.2-3.4); LYMPH % 29.2 % (20.0-51.0); MEAN CELL VOLUME 89 fl (80.0-100.0); MEAN CORPUSCULAR HEMOGLOBIN 30 pg (27.0-31.0); MEAN CORPUSCULAR HGB CONC 34 g/dl (33.0-37.0); MEAN PLATELET VOLUME 10.9 fl (7.4-10.4); MONO # 0.4 (0.1-0.6); MONO % 4.7 % (1.7-9.3); PLATELET COUNT 280 K/mm3 (130-400); RED BLOOD COUNT 4.71 M/mm3 (4.10-5.30); REDCELL DISTRIBUTION WIDTH-CV 12.5 % (11.5-14.5)
[2019-01-01 16:01] LABS: ALBUMIN 4.3 gm/dL (3.5-5.0); BILIRUBIN,TOTAL 0.4 mg/dL (0.0-1.0); C-REACTIVE PROTEIN 0.9 mg/dL (0.0-0.9); CALCIUM 9.7 mg/dL (8.4-10.2); CREATININE, serum 0.67 (0.52-1.25); POTASSIUM 3.9 mmol/L (3.4-5.0); TOTAL PROTEIN 7.6 gm/dL (6.4-8.2)
[2019-01-01 16:05] LABS: COLLECTION METHOD CLEAN CATCH
[2019-01-01 16:12] LABS: PH 5 (5-8); SQUAMOUS EPITHELIAL 0-2 /hpf; URINE APPEARANCE Clear; URINE BACTERIA None Seen /hpf; URINE BILIRUBIN Negative (NEGATIVE); URINE BLOOD Negative (NEGATIVE); URINE COLOR Yellow; URINE GLUCOSE Negative (NEGATIVE); URINE KETONE Negative (NEGATIVE); URINE LEUKOCYTE ESTERASE Negative (NEGATIVE); URINE NITRATE Negative (NEGATIVE); URINE PROTEIN(semi-quant) Negative (NEGATIVE); URINE RBC 0-2 /hpf; URINE UROBILINOGEN Negative (NEGATIVE)
[2019-01-01 16:27] VITALS: BP 127/80; PULSE 93; TEMP 98.8
== END 2019-01-01 16:45 | disposition home or self-care (01) ==
LOC: COL.ER 15:04
PROVIDERS: Physician Assistant
DX: R10.11 Right upper quadrant pain (principal); G89.29 Other chronic pain; K21.9 Gastro-esophageal reflux disease without esophagitis; Z79.891 Long term (current) use of opiate analgesic; Z90.49 Acquired absence of other specified parts of digestive tract; Z87.19 Personal history of other diseases of the digestive system; Z90.710 Acquired absence of both cervix and uterus; Z87.891 Personal history of nicotine dependence
CPT/HCPCS: J2550

== ENCOUNTER 2019-01-26 08:55 | Emergency (ER) | payer BC ==
[~2019-01-26] VITALS: Ht 157.5 cm; Wt 72.7 kg
[2019-01-26 09:29] LABS: COLLECTION METHOD CLEAN CATCH
[2019-01-26 09:38] LABS: MUCOUS Present /lpf; PH 5 (5-8); URINE APPEARANCE Hazy; URINE BACTERIA Rare /hpf; URINE BILIRUBIN Negative (NEGATIVE); URINE BLOOD Negative (NEGATIVE); URINE COLOR Straw; URINE GLUCOSE Negative (NEGATIVE); URINE KETONE Negative (NEGATIVE); URINE LEUKOCYTE ESTERASE Negative (NEGATIVE); URINE NITRATE Negative (NEGATIVE); URINE PROTEIN(semi-quant) Negative (NEGATIVE); URINE RBC 0-2 /hpf; URINE UROBILINOGEN Negative (NEGATIVE)
[2019-01-26] MEDS ORDERED: PHENERGAN25 MG RC (09:56)
[2019-01-26 10:30] VITALS: BP 133/82; PULSE 132; TEMP 98.7
== END 2019-01-26 10:30 | disposition home or self-care (01) ==
LOC: COL.ER 08:55
PROVIDERS: Physician Assistant
DX: R11.2 Nausea with vomiting, unspecified (principal); G89.29 Other chronic pain; R10.11 Right upper quadrant pain; G43.909 Migraine, unspecified, not intractable, without status migrainosus; Z90.49 Acquired absence of other specified parts of digestive tract; Z90.89 Acquired absence of other organs; Z90.710 Acquired absence of both cervix and uterus; Z87.891 Personal history of nicotine dependence
CPT/HCPCS: J1170; J2550

== ENCOUNTER 2019-02-08 13:58 | Emergency (ER) | payer BC ==
[~2019-02-08] VITALS: Ht 157.5 cm; Wt 72.7 kg
[2019-02-08 14:06] VITALS: TEMP 96.9
[2019-02-08 16:20] VITALS: BP 161/82; PULSE 84
== END 2019-02-08 16:21 | disposition home or self-care (01) ==
LOC: COL.ER 13:58
DX: R10.9 Unspecified abdominal pain (principal); G89.29 Other chronic pain
CPT/HCPCS: J1170; J2550

== ENCOUNTER 2019-02-23 12:24 | Emergency (ER) | payer BC ==
[~2019-02-23] VITALS: Ht 157.5 cm; Wt 72.7 kg
[2019-02-23 12:28] VITALS: TEMP 97.6
[2019-02-23 15:46] VITALS: BP 125/75; PULSE 95
== END 2019-02-23 15:47 | disposition home or self-care (01) ==
LOC: COL.ER 12:24
DX: R10.11 Right upper quadrant pain (principal); R10.12 Left upper quadrant pain; G89.29 Other chronic pain; Z87.891 Personal history of nicotine dependence
CPT/HCPCS: J1170; J2550

== ENCOUNTER 2019-03-12 16:27 | Emergency (ER) | payer BC ==
[~2019-03-12] VITALS: Ht 157.5 cm; Wt 77.3 kg
[2019-03-12 16:47] VITALS: TEMP 98.2
[2019-03-12 18:46] LABS: BASO # 0.1 (0.0-0.2); BASO % 0.6 % (0.0-2.0); EOS # 0.2 (0.0-0.7); EOS % 1.9 % (0-4.0); GRAN # 5.9 (1.4-6.5); GRAN % 70.6 % (42.2-75.2); HEMATOCRIT 48.8 % (37.0-47.0); HEMOGLOBIN 16.6 g/dl (12.5-16.0); LYMPH # 1.8 (1.2-3.4); MEAN CELL VOLUME 88 fl (80.0-100.0); MEAN CORPUSCULAR HEMOGLOBIN 30 pg (27.0-31.0); MEAN CORPUSCULAR HGB CONC 34 g/dl (33.0-37.0); MONO # 0.4 (0.1-0.6); MONO % 4.5 % (1.7-9.3); PLATELET COUNT 317 K/mm3 (130-400); RED BLOOD COUNT 5.57 M/mm3 (4.10-5.30); REDCELL DISTRIBUTION WIDTH-CV 12.3 % (11.5-14.5)
[2019-03-12 18:57] LABS: ALBUMIN 4.8 gm/dL (3.5-5.0); BILIRUBIN,TOTAL 0.4 mg/dL (0.0-1.0); CREATININE, serum 0.68 (0.52-1.25); POTASSIUM 4.3 mmol/L (3.4-5.0); TOTAL PROTEIN 8.3 gm/dL (6.4-8.2)
[2019-03-12 19:21] LABS: COLLECTION METHOD CLEAN CATCH
[2019-03-12 19:28] LABS: MUCOUS Present /lpf; PH 6 (5-8); URINE APPEARANCE Hazy; URINE BACTERIA None Seen /hpf; URINE BILIRUBIN Negative (NEGATIVE); URINE BLOOD Negative (NEGATIVE); URINE COLOR Yellow; URINE GLUCOSE Negative (NEGATIVE); URINE KETONE Trace (NEGATIVE); URINE LEUKOCYTE ESTERASE Negative (NEGATIVE); URINE NITRATE Negative (NEGATIVE); URINE PROTEIN(semi-quant) Negative (NEGATIVE); URINE RBC 0-2 /hpf; URINE UROBILINOGEN Negative (NEGATIVE)
[2019-03-12 20:01] VITALS: BP 128/90
[2019-03-12 20:21] VITALS: PULSE 86
== END 2019-03-12 20:21 | disposition home or self-care (01) ==
LOC: COL.ER 16:27
PROVIDERS: Physician Assistant
DX: K83.8 Other specified diseases of biliary tract (principal); R11.2 Nausea with vomiting, unspecified
CPT/HCPCS: J1170; J2405; J2550; J7030

== ENCOUNTER 2019-03-22 13:12 | Emergency (ER) | payer BC ==
[~2019-03-22] VITALS: Ht 157.5 cm; Wt 77.3 kg
[2019-03-22 13:15] VITALS: BP 120/82; TEMP 97.4
[2019-03-22 13:59] LABS: HEMATOCRIT 43.4 % (37.0-47.0); HEMOGLOBIN 14.3 g/dl (12.5-16.0); MEAN CELL VOLUME 89 fl (80.0-100.0); MEAN CORPUSCULAR HEMOGLOBIN 29 pg (27.0-31.0); MEAN CORPUSCULAR HGB CONC 33 g/dl (33.0-37.0); MEAN PLATELET VOLUME 11.2 fl (7.4-10.4); PLATELET COUNT 256 K/mm3 (130-400); RED BLOOD COUNT 4.89 M/mm3 (4.10-5.30); REDCELL DISTRIBUTION WIDTH-CV 12.1 % (11.5-14.5)
[2019-03-22 14:12] LABS: ALBUMIN 4.3 gm/dL (3.5-5.0); BILIRUBIN,TOTAL 0.1 mg/dL (0.0-1.0); C-REACTIVE PROTEIN 0.7 mg/dL (0.0-0.9); CALCIUM 9.3 mg/dL (8.4-10.2); CREATININE, serum 0.68 (0.52-1.25); TOTAL PROTEIN 7.4 gm/dL (6.4-8.2)
[2019-03-22 14:19] LABS: BAND 4 % (0-10); EOSINOPHIL 4 % (0-4); LYMPHOCYTE 35 % (20.0-51.0); METAMYELOCYTE 1 % (0-0); NEUTROPHILS 52 % (42.0-75.2); PLATELET ESTIMATE NORMAL (NORMAL)
[2019-03-22 14:43] VITALS: PULSE 93
== END 2019-03-22 14:43 | disposition home or self-care (01) ==
LOC: COL.ER 13:12
PROVIDERS: Physician Assistant
DX: G89.29 Other chronic pain (principal); R10.11 Right upper quadrant pain; Z90.710 Acquired absence of both cervix and uterus; Z90.89 Acquired absence of other organs
CPT/HCPCS: J2270; J2550

== ENCOUNTER 2019-04-08 13:24 | Emergency (ER) | payer BC ==
[~2019-04-08] VITALS: Ht 157.5 cm; Wt 77.3 kg
[2019-04-08 13:28] VITALS: TEMP 96.6
[2019-04-08] MEDS ORDERED: PHENERGAN25 MG RC (15:08)
[2019-04-08 15:10] VITALS: BP 127/91; PULSE 92
== END 2019-04-08 15:20 | disposition home or self-care (01) ==
LOC: COL.ER 13:24
DX: R10.11 Right upper quadrant pain (principal); G89.29 Other chronic pain; G43.909 Migraine, unspecified, not intractable, without status migrainosus; Z90.89 Acquired absence of other organs; Z90.49 Acquired absence of other specified parts of digestive tract; Z87.891 Personal history of nicotine dependence
CPT/HCPCS: J1170; J2550

== ENCOUNTER 2019-05-11 08:30 | Emergency (ER) | payer BC ==
[~2019-05-11] VITALS: Ht 157.5 cm; Wt 72.7 kg
[2019-05-11] MEDS ORDERED: DEPAKOTE ER 50500 MG PO (08:38)
[2019-05-11] MEDS ORDERED: GEODON60 MG PO (08:38)
[2019-05-11] MEDS ORDERED: ADDERALL XR20 MG PO (08:39)
[2019-05-11 08:40] VITALS: TEMP 99
[2019-05-11 09:09] LABS: BASO # 0.1 (0.0-0.2); EOS # 0.3 (0.0-0.7); EOS % 4.1 % (0-4.0); GRAN # 3.7 (1.4-6.5); GRAN % 58.2 % (42.2-75.2); HEMATOCRIT 43.9 % (37.0-47.0); HEMOGLOBIN 14.8 g/dl (12.5-16.0); MEAN CELL VOLUME 88 fl (80.0-100.0); MEAN CORPUSCULAR HEMOGLOBIN 30 pg (27.0-31.0); MEAN CORPUSCULAR HGB CONC 34 g/dl (33.0-37.0); MEAN PLATELET VOLUME 10.6 fl (7.4-10.4); MONO # 0.3 (0.1-0.6); MONO % 5.2 % (1.7-9.3); PLATELET COUNT 262 K/mm3 (130-400); RED BLOOD COUNT 4.97 M/mm3 (4.10-5.30); REDCELL DISTRIBUTION WIDTH-CV 13.7 % (11.5-14.5)
[2019-05-11 09:24] LABS: ALBUMIN 4.7 gm/dL (3.5-5.0); BILIRUBIN,TOTAL 0.3 mg/dL (0.0-1.0); C-REACTIVE PROTEIN 0.7 mg/dL (0.0-0.9); CALCIUM 9.6 mg/dL (8.4-10.2); CREATININE, serum 0.84 (0.52-1.25); POTASSIUM 3.6 mmol/L (3.4-5.0); TOTAL PROTEIN 8.1 gm/dL (6.4-8.2)
[2019-05-11 10:08] VITALS: BP 115/75; PULSE 95
== END 2019-05-11 10:09 | disposition home or self-care (01) ==
LOC: COL.ER 08:30
PROVIDERS: Nurse Practitioner
DX: R10.11 Right upper quadrant pain (principal); G89.29 Other chronic pain; Z90.49 Acquired absence of other specified parts of digestive tract; Z90.89 Acquired absence of other organs; Z90.710 Acquired absence of both cervix and uterus
CPT/HCPCS: J1170; J2550

== ENCOUNTER 2019-05-20 14:49 | Emergency (ER) | payer BC ==
[~2019-05-20] VITALS: Ht 157.5 cm; Wt 77.3 kg
[~2019-05-20 14:49] MED LIST changes: +ADDERALL XR20 MG PO; +DEPAKOTE ER 50500 MG PO; +GEODON60 MG PO
[2019-05-20 14:55] VITALS: BP 147/98; TEMP 97
[2019-05-20 17:15] VITALS: PULSE 82
== END 2019-05-20 17:20 | disposition home or self-care (01) ==
LOC: COL.ER 14:49
DX: G89.29 Other chronic pain (principal); R10.11 Right upper quadrant pain; Z90.49 Acquired absence of other specified parts of digestive tract; Z90.89 Acquired absence of other organs; Z90.710 Acquired absence of both cervix and uterus; Z98.890 Other specified postprocedural states
CPT/HCPCS: J1170; J2550

== ENCOUNTER 2019-05-26 13:07 | Outpatient (CLI) | payer BC ==
[~2019-05-26] VITALS: Ht 157.5 cm; Wt 81.0 kg
[2019-05-26 14:17] VITALS: BP 126/80; PULSE 80; TEMP 98.2
[2019-05-26 15:43] VITALS: BP 133/80; PULSE 102; TEMP 98.2
--- NOTE | 2019-05-26 16:12 | NUR ---
Pt discharged per w/c by nurse with .
== END 2019-05-26 16:17 | disposition home or self-care (01) ==
LOC: EUO 13:07
DX: K83.4 Spasm of sphincter of Oddi (principal)
CPT/HCPCS: J1170; J2550

== ENCOUNTER 2019-06-10 05:32 | Emergency (ER) | payer BC ==
[~2019-06-10] VITALS: Ht 157.5 cm; Wt 72.7 kg
[2019-06-10 05:41] VITALS: BP 140/102; TEMP 98.2
[2019-06-10] MEDS ORDERED: LAMICTAL 100MG100 MG PO (05:47)
[2019-06-10] MEDS ORDERED: PHENERGAN 25 TA25 MG PO (06:13)
[2019-06-10] MEDS ORDERED: PHENERGAN25 MG RC (06:13)
[2019-06-10 06:20] LABS: BASO # 0.1 (0.0-0.2); BASO % 0.9 % (0.0-2.0); EOS # 0.5 (0.0-0.7); EOS % 7.1 % (0-4.0); GRAN # 2.8 (1.4-6.5); HEMATOCRIT 38.2 % (37.0-47.0); HEMOGLOBIN 13.4 g/dl (12.5-16.0); LYMPH # 3.2 (1.2-3.4); LYMPH % 46.1 % (20.0-51.0); MEAN CELL VOLUME 88 fl (80.0-100.0); MEAN CORPUSCULAR HEMOGLOBIN 31 pg (27.0-31.0); MEAN CORPUSCULAR HGB CONC 35 g/dl (33.0-37.0); MONO # 0.3 (0.1-0.6); MONO % 4.5 % (1.7-9.3); PLATELET COUNT 251 K/mm3 (130-400); RED BLOOD COUNT 4.35 M/mm3 (4.10-5.30); REDCELL DISTRIBUTION WIDTH-CV 13.3 % (11.5-14.5)
[2019-06-10 06:32] LABS: ALANINE AMINOTRANSFERASE 12 U/L (9-52); ALBUMIN 3.9 gm/dL (3.5-5.0); ALKALINE PHOSPHATASE 102 U/L (50-136); ANION GAP 7 mmol/L (7-16); AST,SGOT 23 U/L (15-37); BILIRUBIN,TOTAL < 0.1 mg/dL (0.0-1.0); BLOOD UREA NITROGEN 9 mg/dL (7-17); CALCIUM 8.9 mg/dL (8.4-10.2); CARBON DIOXIDE 28 mmol/L (22-30); CHLORIDE 107 mmol/L (98-107); CREATININE, serum 0.72 (0.52-1.25); GLUCOSE 114 mg/dL (74-106); LIPASE 180 U/L (23-300); SODIUM 142 mmol/L (137-145)
[2019-06-10 06:37] LABS: POTASSIUM 2.9 mmol/L (3.4-5.0)
[2019-06-10 07:35] VITALS: PULSE 119
== END 2019-06-10 07:35 | disposition home or self-care (01) ==
LOC: COL.ER 05:32
PROVIDERS: Emergency Medicine
DX: K83.4 Spasm of sphincter of Oddi (principal); E87.6 Hypokalemia; R11.2 Nausea with vomiting, unspecified; Z90.710 Acquired absence of both cervix and uterus; Z90.89 Acquired absence of other organs; Z90.49 Acquired absence of other specified parts of digestive tract
CPT/HCPCS: J1170; J2060; J2550

== ENCOUNTER 2019-06-16 15:08 | Emergency (ER) | payer BC ==
[~2019-06-16] VITALS: Ht 157.5 cm; Wt 77.3 kg
[~2019-06-16 15:08] MED LIST changes: +LAMICTAL 100MG100 MG PO
[2019-06-16 15:23] VITALS: BP 150/69; TEMP 97.4
[2019-06-16 16:13] LABS: HEMATOCRIT 37.5 % (37.0-47.0); HEMOGLOBIN 12.8 g/dl (12.5-16.0); MEAN CELL VOLUME 90 fl (80.0-100.0); MEAN CORPUSCULAR HEMOGLOBIN 31 pg (27.0-31.0); MEAN CORPUSCULAR HGB CONC 34 g/dl (33.0-37.0); PLATELET COUNT 264 K/mm3 (130-400); RED BLOOD COUNT 4.19 M/mm3 (4.10-5.30); REDCELL DISTRIBUTION WIDTH-CV 13.6 % (11.5-14.5)
[2019-06-16 16:23] LABS: COLLECTION METHOD CLEAN CATCH
[2019-06-16] MEDS ORDERED: PHENERGAN 25 TA25 MG PO (16:26)
[2019-06-16] MEDS ORDERED: PHENERGAN25 MG RC (16:26)
[2019-06-16 16:27] LABS: ALBUMIN 3.8 gm/dL (3.5-5.0); BILIRUBIN,TOTAL 0.2 mg/dL (0.0-1.0); CREATININE, serum 0.66 (0.52-1.25); POTASSIUM 3.6 mmol/L (3.4-5.0); TOTAL PROTEIN 6.8 gm/dL (6.4-8.2)
[2019-06-16 17:01] LABS: EOSINOPHIL 9 % (0-4); LYMPHOCYTE 36 % (20.0-51.0); METAMYELOCYTE 2 % (0-0); NEUTROPHILS 52 % (42.0-75.2); PLATELET ESTIMATE NORMAL (NORMAL)
[2019-06-16 17:03] VITALS: PULSE 110
[2019-06-16 17:06] LABS: PH 7 (5-8); URINE APPEARANCE Hazy; URINE BACTERIA None Seen /hpf; URINE BILIRUBIN Negative (NEGATIVE); URINE BLOOD Negative (NEGATIVE); URINE COLOR Straw; URINE GLUCOSE Negative (NEGATIVE); URINE KETONE Negative (NEGATIVE); URINE LEUKOCYTE ESTERASE 2+ (NEGATIVE); URINE NITRATE Negative (NEGATIVE); URINE PROTEIN(semi-quant) Negative (NEGATIVE); URINE RBC 0-2 /hpf; URINE UROBILINOGEN Negative (NEGATIVE)
== END 2019-06-16 17:05 | disposition home or self-care (01) ==
LOC: COL.ER 15:08
PROVIDERS: Emergency Medicine
DX: R11.2 Nausea with vomiting, unspecified (principal); R10.9 Unspecified abdominal pain; G89.29 Other chronic pain
CPT/HCPCS: J1170; J1200; J2550

== ENCOUNTER 2019-06-30 11:53 | Emergency (ER) | payer BC ==
[~2019-06-30] VITALS: Ht 157.5 cm; Wt 77.3 kg
[2019-06-30 11:58] VITALS: BP 138/83
[2019-06-30] MEDS ORDERED: PHENERGAN 25 TA25 MG PO (13:24)
[2019-06-30 13:35] VITALS: PULSE 106; TEMP 97.5
== END 2019-06-30 13:35 | disposition home or self-care (01) ==
LOC: COL.ER 11:53
DX: R10.12 Left upper quadrant pain (principal); Z90.89 Acquired absence of other organs; Z90.710 Acquired absence of both cervix and uterus; Z90.49 Acquired absence of other specified parts of digestive tract
CPT/HCPCS: J1170; J2550

== ENCOUNTER 2019-07-06 13:20 | Emergency (ER) | payer BC ==
[~2019-07-06] VITALS: Ht 157.5 cm; Wt 77.3 kg
[2019-07-06 13:28] VITALS: BP 147/70; TEMP 97.4
[2019-07-06 17:25] LABS: BASO # 0.1 (0.0-0.2); BASO % 0.6 % (0.0-2.0); EOS # 0.4 (0.0-0.7); EOS % 4.9 % (0-4.0); GRAN # 5.5 (1.4-6.5); GRAN % 71.1 % (42.2-75.2); HEMATOCRIT 41.4 % (37.0-47.0); HEMOGLOBIN 13.6 g/dl (12.5-16.0); LYMPH # 1.5 (1.2-3.4); LYMPH % 18.9 % (20.0-51.0); MEAN CELL VOLUME 93 fl (80.0-100.0); MEAN CORPUSCULAR HEMOGLOBIN 31 pg (27.0-31.0); MEAN CORPUSCULAR HGB CONC 33 g/dl (33.0-37.0); MEAN PLATELET VOLUME 11.3 fl (7.4-10.4); MONO # 0.3 (0.1-0.6); MONO % 3.6 % (1.7-9.3); PLATELET COUNT 262 K/mm3 (130-400); RED BLOOD COUNT 4.46 M/mm3 (4.10-5.30); REDCELL DISTRIBUTION WIDTH-CV 12.7 % (11.5-14.5)
[2019-07-06 17:34] LABS: ALBUMIN 4.2 gm/dL (3.5-5.0); BILIRUBIN,TOTAL 0.2 mg/dL (0.0-1.0); CALCIUM 8.9 mg/dL (8.4-10.2); CREATININE, serum 0.72 (0.52-1.25); POTASSIUM 3.7 mmol/L (3.4-5.0); TOTAL PROTEIN 7.4 gm/dL (6.4-8.2)
[2019-07-06 18:49] VITALS: PULSE 117
== END 2019-07-06 18:49 | disposition home or self-care (01) ==
LOC: COL.ER 13:20
PROVIDERS: Emergency Medicine
DX: R11.10 Vomiting, unspecified (principal); R10.11 Right upper quadrant pain; G89.29 Other chronic pain; F32.9 Major depressive disorder, single episode, unspecified; F41.9 Anxiety disorder, unspecified; Z90.89 Acquired absence of other organs; Z90.710 Acquired absence of both cervix and uterus; Z87.891 Personal history of nicotine dependence
CPT/HCPCS: J1170; J1200; J2550; J3230; J7030

== ENCOUNTER 2019-07-10 13:18 | Outpatient (CLI) | payer BC ==
[~2019-07-10] VITALS: Ht 157.5 cm; Wt 85.0 kg
[2019-07-10 15:03] VITALS: BP 112/76; PULSE 80; TEMP 98.4
--- NOTE | 2019-07-10 16:05 | NUR ---
pt states pain to RUQ is at 7, requests 2nd dose of dilaudud, gave 1mg IV as ordered. fluids in, pt up to b/r to void, no emesis, drinks sprite, waits for ride, pain level at this time a 6/10,
--- NOTE | 2019-07-10 16:39 | NUR ---
pt discharged amb. to car with family
== END 2019-07-10 16:39 | disposition home or self-care (01) ==
LOC: EUO 13:18
DX: R11.15 Cyclical vomiting syndrome unrelated to migraine (principal)
CPT/HCPCS: J1170; J2550; J7120

== ENCOUNTER 2019-07-19 12:13 | Emergency (ER) | payer BC ==
[~2019-07-19] VITALS: Ht 157.5 cm; Wt 77.1 kg
[2019-07-19 12:40] VITALS: BP 143/84; TEMP 97.9
[2019-07-19 14:49] LABS: COLLECTION METHOD CLEAN CATCH
[2019-07-19 15:05] LABS: PH 5 (5-8); URINE APPEARANCE Hazy; URINE BACTERIA Occasional /hpf; URINE BILIRUBIN Negative (NEGATIVE); URINE BLOOD Negative (NEGATIVE); URINE COLOR Yellow; URINE GLUCOSE Negative (NEGATIVE); URINE KETONE Negative (NEGATIVE); URINE LEUKOCYTE ESTERASE 1+ (NEGATIVE); URINE NITRATE Negative (NEGATIVE); URINE PROTEIN(semi-quant) Negative (NEGATIVE); URINE RBC 0-2 /hpf; URINE UROBILINOGEN Negative (NEGATIVE)
[2019-07-19 16:25] VITALS: PULSE 89
== END 2019-07-19 16:25 | disposition home or self-care (01) ==
LOC: COL.ER 12:13
PROVIDERS: Emergency Medicine
DX: G89.29 Other chronic pain (principal); R10.11 Right upper quadrant pain; R11.2 Nausea with vomiting, unspecified; Z90.89 Acquired absence of other organs; Z90.710 Acquired absence of both cervix and uterus; Z87.891 Personal history of nicotine dependence
CPT/HCPCS: J1170; J1200; J2550

== ENCOUNTER 2019-07-26 11:05 | Emergency (ER) | payer BC ==
[~2019-07-26] VITALS: Ht 157.5 cm; Wt 77.3 kg
[2019-07-26 11:17] VITALS: TEMP 97.7
[2019-07-26] MEDS ORDERED: ZOFRAN ODT4 MG PO (12:11)
[2019-07-26] MEDS ORDERED: PHENERGAN25 MG/ML IM (12:51)
[2019-07-26] MEDS ORDERED: PHENERGAN 25 TA25 MG PO (12:51)
[2019-07-26 13:20] VITALS: BP 135/80; PULSE 90
== END 2019-07-26 13:21 | disposition home or self-care (01) ==
LOC: COL.ER 11:05
DX: R10.11 Right upper quadrant pain (principal)
CPT/HCPCS: J0780; J1170; J1200; J2550

== ENCOUNTER 2019-08-11 13:32 | Emergency (ER) | payer BC ==
[~2019-08-11] VITALS: Ht 157.5 cm; Wt 77.3 kg
[2019-08-11 13:59] VITALS: BP 133/87; TEMP 99.2
[2019-08-11] MEDS ORDERED: PHENERGAN25 MG/ML IM (15:42)
[2019-08-11 16:15] VITALS: PULSE 86
== END 2019-08-11 16:55 | disposition home or self-care (01) ==
LOC: COL.ER 13:32
DX: R11.10 Vomiting, unspecified (principal); R10.11 Right upper quadrant pain; G43.909 Migraine, unspecified, not intractable, without status migrainosus; Z87.891 Personal history of nicotine dependence
CPT/HCPCS: J1170; J2550

== ENCOUNTER 2019-08-20 15:26 | Emergency (ER) | payer BC ==
[~2019-08-20] VITALS: Ht 157.5 cm; Wt 77.3 kg
[2019-08-20 15:42] VITALS: TEMP 98.4
[2019-08-20 18:32] VITALS: BP 138/83; PULSE 95
== END 2019-08-20 18:34 | disposition home or self-care (01) ==
LOC: COL.ER 15:26
DX: R11.10 Vomiting, unspecified (principal); R10.11 Right upper quadrant pain; Z87.891 Personal history of nicotine dependence
CPT/HCPCS: J1170; J1790

== ENCOUNTER 2019-08-29 15:43 | Emergency (ER) | payer BC ==
[~2019-08-29] VITALS: Ht 157.5 cm; Wt 77.3 kg
[2019-08-29 15:49] VITALS: BP 141/88; TEMP 96.7
[2019-08-29 16:37] LABS: BASO # 0.1 (0.0-0.2); BASO % 0.7 % (0.0-2.0); EOS # 0.5 (0.0-0.7); EOS % 4.4 % (0-4.0); GRAN # 6.8 (1.4-6.5); GRAN % 63.2 % (42.2-75.2); HEMATOCRIT 41.7 % (37.0-47.0); LYMPH # 2.8 (1.2-3.4); LYMPH % 26.5 % (20.0-51.0); MEAN CELL VOLUME 88 fl (80.0-100.0); MEAN CORPUSCULAR HEMOGLOBIN 30 pg (27.0-31.0); MEAN CORPUSCULAR HGB CONC 34 g/dl (33.0-37.0); MEAN PLATELET VOLUME 11.2 fl (7.4-10.4); MONO # 0.5 (0.1-0.6); MONO % 4.5 % (1.7-9.3); PLATELET COUNT 297 K/mm3 (130-400); RED BLOOD COUNT 4.74 M/mm3 (4.10-5.30)
[2019-08-29 16:50] LABS: ALBUMIN 4.3 gm/dL (3.5-5.0); BILIRUBIN,TOTAL 0.3 mg/dL (0.0-1.0); C-REACTIVE PROTEIN 1.5 mg/dL (0.0-0.9); CALCIUM 9.4 mg/dL (8.4-10.2); CREATININE, serum 0.65 (0.52-1.25); TOTAL PROTEIN 7.8 gm/dL (6.4-8.2)
[2019-08-29 17:10] LABS: COLLECTION METHOD CLEAN CATCH
[2019-08-29 17:16] LABS: PH 6 (5-8); SQUAMOUS EPITHELIAL 0-2 /hpf; URINE APPEARANCE Clear; URINE BACTERIA Rare /hpf; URINE BILIRUBIN Negative (NEGATIVE); URINE BLOOD Negative (NEGATIVE); URINE COLOR Straw; URINE GLUCOSE Negative (NEGATIVE); URINE KETONE Negative (NEGATIVE); URINE LEUKOCYTE ESTERASE Negative (NEGATIVE); URINE NITRATE Negative (NEGATIVE); URINE PROTEIN(semi-quant) Negative (NEGATIVE); URINE RBC 0-2 /hpf; URINE UROBILINOGEN Negative (NEGATIVE)
[2019-08-29 17:31] VITALS: PULSE 96
== END 2019-08-29 17:31 | disposition home or self-care (01) ==
LOC: COL.ER 15:43
PROVIDERS: Physician Assistant
DX: R11.2 Nausea with vomiting, unspecified (principal); G89.29 Other chronic pain; R10.9 Unspecified abdominal pain; Z90.710 Acquired absence of both cervix and uterus; Z90.89 Acquired absence of other organs; Z87.891 Personal history of nicotine dependence
CPT/HCPCS: J1170; J2550

== ENCOUNTER 2019-09-02 13:30 | Outpatient (CLI) | payer BC ==
[~2019-09-02] VITALS: Ht 157.5 cm; Wt 88.6 kg
[2019-09-02 16:49] VITALS: BP 119/82; PULSE 93; TEMP 98
[2019-09-02 17:45] VITALS: PULSE 109
== END 2019-09-02 17:57 | disposition home or self-care (01) ==
LOC: EUO 13:30
DX: K83.4 Spasm of sphincter of Oddi (principal)
CPT/HCPCS: J1170; J2550; J7120

== ENCOUNTER 2019-09-30 17:12 | Emergency (ER) | payer BC ==
[~2019-09-30] VITALS: Ht 157.5 cm; Wt 77.3 kg
[~2019-09-30 17:12] MED LIST changes: -FENTANYL 50MCG TD; +FENTANYL 75MCG TD
[2019-09-30 17:17] VITALS: TEMP 98
[2019-09-30] MEDS ORDERED: ZOFRAN 4MG T4 MG/TAB PO (17:29)
[2019-09-30] MEDS ORDERED: ZOFRAN8 MG PO (17:31)
[2019-09-30] MEDS ORDERED: ZOFRAN ODT4 MG PO (18:38)
[2019-09-30 18:56] VITALS: BP 123/83; PULSE 97
== END 2019-09-30 18:58 | disposition home or self-care (01) ==
LOC: COL.ER 17:12
DX: G89.29 Other chronic pain (principal); R10.11 Right upper quadrant pain; I10 Essential (primary) hypertension; Z87.891 Personal history of nicotine dependence
CPT/HCPCS: J1170; J2550

== ENCOUNTER 2019-10-16 21:56 | Emergency (ER) | payer BC ==
[~2019-10-16] VITALS: Ht 157.5 cm; Wt 77.3 kg
[2019-10-16 21:58] VITALS: TEMP 98.9
[2019-10-16] MEDS ORDERED: ADDERALL20 MG PO ×2 (22:01)
[2019-10-17 01:05] LABS: BASO # 0.1 (0.0-0.2); BASO % 0.7 % (0.0-2.0); EOS # 0.1 (0.0-0.7); EOS % 0.9 % (0-4.0); GRAN # 7.1 (1.4-6.5); GRAN % 77.1 % (42.2-75.2); HEMATOCRIT 47.3 % (37.0-47.0); HEMOGLOBIN 15.6 g/dl (12.5-16.0); LYMPH # 1.5 (1.2-3.4); LYMPH % 16.8 % (20.0-51.0); MEAN CELL VOLUME 88 fl (80.0-100.0); MEAN CORPUSCULAR HEMOGLOBIN 29 pg (27.0-31.0); MEAN CORPUSCULAR HGB CONC 33 g/dl (33.0-37.0); MEAN PLATELET VOLUME 10.8 fl (7.4-10.4); MONO # 0.3 (0.1-0.6); MONO % 3.5 % (1.7-9.3); PLATELET COUNT 366 K/mm3 (130-400); RED BLOOD COUNT 5.36 M/mm3 (4.10-5.30); REDCELL DISTRIBUTION WIDTH-CV 13.2 % (11.5-14.5)
[2019-10-17 01:26] LABS: ALANINE AMINOTRANSFERASE 29 U/L (4-34); ALBUMIN 5.1 gm/dL (3.5-5.0); ALKALINE PHOSPHATASE 174 U/L (50-136); ANION GAP 11 mmol/L (7-16); AST,SGOT 38 U/L (15-37); BILIRUBIN,TOTAL 0.7 mg/dL (0.0-1.0); BLOOD UREA NITROGEN 18 mg/dL (7-17); CALCIUM 10.9 mg/dL (8.4-10.2); CARBON DIOXIDE 26 mmol/L (22-30); CHLORIDE 102 mmol/L (98-107); CREATININE, serum 0.78 (0.52-1.25); GLUCOSE 132 mg/dL (74-106); POTASSIUM 4.5 mmol/L (3.4-5.0); SODIUM 139 mmol/L (137-145); TOTAL PROTEIN 9.4 gm/dL (6.4-8.2)
[2019-10-17 01:43] LABS: TROPONIN-I < 0.012 ng/mL (0.000-0.035)
[2019-10-17 03:01] VITALS: BP 129/98; PULSE 108
== END 2019-10-17 03:00 | disposition home or self-care (01) ==
LOC: COL.ER 21:56
PROVIDERS: Nurse Practitioner
DX: F41.9 Anxiety disorder, unspecified (principal); R07.9 Chest pain, unspecified; I10 Essential (primary) hypertension; F32.9 Major depressive disorder, single episode, unspecified; G43.909 Migraine, unspecified, not intractable, without status migrainosus; Z87.891 Personal history of nicotine dependence
CPT/HCPCS: J1170; J2405; J3360; J7030

== ENCOUNTER 2019-11-08 07:34 | Emergency (ER) | payer BC ==
[~2019-11-08] VITALS: Ht 157.5 cm; Wt 77.3 kg
[~2019-11-08 07:34] MED LIST changes: +ADDERALL20 MG PO
[2019-11-08 07:43] VITALS: BP 123/88
[2019-11-08 10:34] VITALS: PULSE 100; TEMP 98.4
== END 2019-11-08 10:26 | disposition home or self-care (01) ==
LOC: COL.ER 07:34
DX: G89.29 Other chronic pain (principal); R10.11 Right upper quadrant pain; I10 Essential (primary) hypertension; Z87.19 Personal history of other diseases of the digestive system; Z87.891 Personal history of nicotine dependence
CPT/HCPCS: J1170; J2405; J2550; J7030

== ENCOUNTER 2019-11-17 21:31 | Emergency (ER) | payer BC ==
[~2019-11-17] VITALS: Ht 157.5 cm; Wt 77.3 kg
[2019-11-17 21:50] VITALS: TEMP 98.3
[2019-11-18] MEDS ORDERED: ZOFRAN ODT4 MG PO (00:12)
[2019-11-18 00:29] VITALS: BP 144/92; PULSE 100
== END 2019-11-18 00:30 | disposition home or self-care (01) ==
LOC: COL.ER 21:31
DX: R11.2 Nausea with vomiting, unspecified (principal); R19.7 Diarrhea, unspecified; F41.0 Panic disorder [episodic paroxysmal anxiety]; G43.909 Migraine, unspecified, not intractable, without status migrainosus; K21.9 Gastro-esophageal reflux disease without esophagitis; K83.4 Spasm of sphincter of Oddi; Z90.49 Acquired absence of other specified parts of digestive tract; Z90.710 Acquired absence of both cervix and uterus
CPT/HCPCS: J1170; J2060; J2405; J2550; J7030

== ENCOUNTER 2019-11-22 10:42 | Emergency (ER) | payer BC ==
[~2019-11-22] VITALS: Ht 157.5 cm; Wt 77.3 kg
[2019-11-22 10:47] VITALS: TEMP 98.2
[2019-11-22 14:23] LABS: BASO # 0.1 (0.0-0.2); BASO % 0.5 % (0.0-2.0); EOS # 0.1 (0.0-0.7); EOS % 0.6 % (0-4.0); GRAN # 7.4 (1.4-6.5); GRAN % 78.6 % (42.2-75.2); HEMATOCRIT 39.8 % (37.0-47.0); HEMOGLOBIN 12.9 g/dl (12.5-16.0); LYMPH # 1.6 (1.2-3.4); LYMPH % 17.5 % (20.0-51.0); MEAN CELL VOLUME 90 fl (80.0-100.0); MEAN CORPUSCULAR HEMOGLOBIN 29 pg (27.0-31.0); MEAN CORPUSCULAR HGB CONC 32 g/dl (33.0-37.0); MEAN PLATELET VOLUME 11.5 fl (7.4-10.4); MONO # 0.2 (0.1-0.6); MONO % 2.3 % (1.7-9.3); PLATELET COUNT 278 K/mm3 (130-400); RED BLOOD COUNT 4.44 M/mm3 (4.10-5.30); REDCELL DISTRIBUTION WIDTH-CV 13.5 % (11.5-14.5)
[2019-11-22 14:24] LABS: ALBUMIN 4.1 gm/dL (3.5-5.0); BILIRUBIN,TOTAL 0.3 mg/dL (0.0-1.0); CALCIUM 8.7 mg/dL (8.4-10.2); CREATININE, serum 0.65 (0.52-1.25); POTASSIUM 3.9 mmol/L (3.4-5.0); TOTAL PROTEIN 7.7 gm/dL (6.4-8.2)
[2019-11-22 16:26] VITALS: BP 141/88; PULSE 120
== END 2019-11-22 16:30 | disposition home or self-care (01) ==
LOC: COL.ER 10:42
PROVIDERS: Emergency Medicine
DX: R51 Headache (principal); R11.2 Nausea with vomiting, unspecified; R10.9 Unspecified abdominal pain; G89.29 Other chronic pain; Z90.49 Acquired absence of other specified parts of digestive tract
CPT/HCPCS: J1100; J1170; J1200; J2060; J2550; J2765; J3475; J7030

== ENCOUNTER 2019-12-01 14:49 | Outpatient (CLI) | payer BC ==
[~2019-12-01] VITALS: Ht 157.5 cm; Wt 88.8 kg
[2019-12-01 17:54] VITALS: BP 138/72; PULSE 62; TEMP 98
== END 2019-12-01 17:59 | disposition home or self-care (01) ==
LOC: EUO 14:49
DX: K83.4 Spasm of sphincter of Oddi (principal)
CPT/HCPCS: J1170; J2550; J7120

== ENCOUNTER 2019-12-10 15:05 | Emergency (ER) | payer BC ==
[~2019-12-10] VITALS: Ht 157.5 cm; Wt 77.3 kg
[2019-12-10 15:11] VITALS: TEMP 99.5
[2019-12-10 15:49] LABS: BASO # 0.1 (0.0-0.2); BASO % 0.6 % (0.0-2.0); EOS # 0.1 (0.0-0.7); EOS % 0.8 % (0-4.0); GRAN % 79.3 % (42.2-75.2); HEMATOCRIT 45.4 % (37.0-47.0); HEMOGLOBIN 15.1 g/dl (12.5-16.0); LYMPH # 1.7 (1.2-3.4); LYMPH % 14.8 % (20.0-51.0); MEAN CELL VOLUME 88 fl (80.0-100.0); MEAN CORPUSCULAR HEMOGLOBIN 29 pg (27.0-31.0); MEAN CORPUSCULAR HGB CONC 33 g/dl (33.0-37.0); MEAN PLATELET VOLUME 11.2 fl (7.4-10.4); MONO # 0.3 (0.1-0.6); PLATELET COUNT 365 K/mm3 (130-400); RED BLOOD COUNT 5.18 M/mm3 (4.10-5.30); REDCELL DISTRIBUTION WIDTH-CV 13.3 % (11.5-14.5)
[2019-12-10 16:01] LABS: COLLECTION METHOD CLEAN CATCH
[2019-12-10 16:01] LABS: BILIRUBIN,TOTAL 0.6 mg/dL (0.0-1.0); CALCIUM 10.8 mg/dL (8.4-10.2); CREATININE, serum 0.78 (0.52-1.25); POTASSIUM 3.8 mmol/L (3.4-5.0); TOTAL PROTEIN 9.3 gm/dL (6.4-8.2)
[2019-12-10 16:06] LABS: MUCOUS Present /lpf; PH 5 (5-8); URINE APPEARANCE Hazy; URINE BACTERIA Rare /hpf; URINE BILIRUBIN Negative (NEGATIVE); URINE BLOOD Negative (NEGATIVE); URINE COLOR Yellow; URINE GLUCOSE Negative (NEGATIVE); URINE KETONE Negative (NEGATIVE); URINE LEUKOCYTE ESTERASE Negative (NEGATIVE); URINE NITRATE Negative (NEGATIVE); URINE PROTEIN(semi-quant) Negative (NEGATIVE); URINE RBC 0-2 /hpf; URINE UROBILINOGEN Negative (NEGATIVE)
[2019-12-10 16:27] LABS: TRICYCLIC ANTIDEPRESS URINE NEGATIVE
[2019-12-10] MEDS ORDERED: ZOFRAN ODT4 MG PO (16:46)
[2019-12-10] MEDS ORDERED: PHENERGAN25 MG RC (16:46)
[2019-12-10 17:38] VITALS: BP 142/83; PULSE 113
== END 2019-12-10 17:39 | disposition home or self-care (01) ==
LOC: COL.ER 15:05
PROVIDERS: Physician Assistant
DX: R10.11 Right upper quadrant pain (principal); R11.2 Nausea with vomiting, unspecified; R00.0 Tachycardia, unspecified; R25.1 Tremor, unspecified; G89.29 Other chronic pain; F11.20 Opioid dependence, uncomplicated; R61 Generalized hyperhidrosis; Z88.8 Allergy status to other drugs, medicaments and biological substances; Z88.1 Allergy status to other antibiotic agents; Z88.4 Allergy status to anesthetic agent; Z88.6 Allergy status to analgesic agent; Z90.710 Acquired absence of both cervix and uterus; Z90.49 Acquired absence of other specified parts of digestive tract
CPT/HCPCS: J0780; J1170; J1200; J1790; J2060; J7030

== ENCOUNTER 2019-12-30 15:08 | Emergency (ER) | payer BC ==
[~2019-12-30] VITALS: Ht 157.5 cm; Wt 77.3 kg
[2019-12-30 15:19] VITALS: TEMP 96.4
[2019-12-30] MEDS ORDERED: ZOFRAN ODT4 MG PO (16:59)
[2019-12-30 17:37] VITALS: BP 137/78; PULSE 91
[2019-12-31] MEDS ORDERED: ATARAX 25MG25 MG/TAB PO (14:11)
== END 2019-12-30 17:36 | disposition home or self-care (01) ==
LOC: COL.ER 15:08
DX: G43.909 Migraine, unspecified, not intractable, without status migrainosus (principal); Z87.891 Personal history of nicotine dependence; Z90.89 Acquired absence of other organs; Z90.49 Acquired absence of other specified parts of digestive tract
CPT/HCPCS: J1170; J2405; J2550

== ENCOUNTER 2019-12-31 11:47 | Emergency (ER) | payer BC ==
[~2019-12-31] VITALS: Ht 157.5 cm; Wt 77.3 kg
[2019-12-31 12:07] VITALS: TEMP 97.1
[2019-12-31] MEDS ORDERED: ATARAX 25MG25 MG/TAB PO (14:11)
[2019-12-31 14:18] VITALS: BP 103/68; PULSE 96
== END 2019-12-31 14:23 | disposition home or self-care (01) ==
LOC: COL.ER 11:47
DX: R51 Headache (principal); F41.9 Anxiety disorder, unspecified; Z86.69 Personal history of other diseases of the nervous system and sense organs; Z88.8 Allergy status to other drugs, medicaments and biological substances; Z90.711 Acquired absence of uterus with remaining cervical stump; Z90.49 Acquired absence of other specified parts of digestive tract; Z90.722 Acquired absence of ovaries, bilateral; Z87.891 Personal history of nicotine dependence
CPT/HCPCS: J0780; J1200; J2060

== ENCOUNTER 2020-01-03 13:54 | Emergency (ER) | payer BC ==
[~2020-01-03] VITALS: Ht 157.5 cm; Wt 77.3 kg
[2020-01-03 14:02] VITALS: BP 140/81; TEMP 96.7
[2020-01-03 14:26] LABS: HEMATOCRIT 41.7 % (37.0-47.0); HEMOGLOBIN 13.8 g/dl (12.5-16.0); MEAN CELL VOLUME 89 fl (80.0-100.0); MEAN CORPUSCULAR HEMOGLOBIN 29 pg (27.0-31.0); MEAN CORPUSCULAR HGB CONC 33 g/dl (33.0-37.0); PLATELET COUNT 373 K/mm3 (130-400); RED BLOOD COUNT 4.71 M/mm3 (4.10-5.30); REDCELL DISTRIBUTION WIDTH-CV 13.6 % (11.5-14.5)
[2020-01-03 14:37] LABS: ALBUMIN 4.6 gm/dL (3.5-5.0); BILIRUBIN,TOTAL 0.4 mg/dL (0.0-1.0); C-REACTIVE PROTEIN 1.3 mg/dL (0.0-0.9); CALCIUM 9.7 mg/dL (8.4-10.2); CREATININE, serum 0.69 (0.52-1.25); POTASSIUM 3.4 mmol/L (3.4-5.0); TOTAL PROTEIN 8.5 gm/dL (6.4-8.2)
[2020-01-03 14:51] LABS: LYMPHOCYTE 18 % (20.0-51.0); METAMYELOCYTE 1 % (0-0); MYELOCYTE 1 % (0-0); NEUTROPHILS 76 % (42.0-75.2); PLATELET ESTIMATE NORMAL (NORMAL)
[2020-01-03] MEDS ORDERED: PHENERGAN25 MG RC (15:03)
[2020-01-03] MEDS ORDERED: PHENERGAN 25 TA25 MG PO (15:03)
[2020-01-03 15:56] VITALS: PULSE 117
== END 2020-01-03 15:56 | disposition home or self-care (01) ==
LOC: COL.ER 13:54
PROVIDERS: Emergency Medicine
DX: R10.13 Epigastric pain (principal); R11.2 Nausea with vomiting, unspecified; F41.9 Anxiety disorder, unspecified; Z90.49 Acquired absence of other specified parts of digestive tract
CPT/HCPCS: J1170; J2060; J2550; J3010; J7030

== ENCOUNTER 2020-01-17 10:00 | Emergency (ER) | payer BC ==
[~2020-01-17] VITALS: Ht 157.5 cm; Wt 86.4 kg
[2020-01-17 10:05] VITALS: TEMP 97.5
[2020-01-17 10:47] LABS: BASO # 0.1 (0.0-0.2); BASO % 0.7 % (0.0-2.0); EOS # 0.1 (0.0-0.7); EOS % 1.2 % (0-4.0); GRAN # 7.2 (1.4-6.5); GRAN % 73.5 % (42.2-75.2); HEMATOCRIT 43.5 % (37.0-47.0); HEMOGLOBIN 14.5 g/dl (12.5-16.0); LYMPH % 20.8 % (20.0-51.0); MEAN CELL VOLUME 88 fl (80.0-100.0); MEAN CORPUSCULAR HEMOGLOBIN 29 pg (27.0-31.0); MEAN CORPUSCULAR HGB CONC 33 g/dl (33.0-37.0); MEAN PLATELET VOLUME 10.7 fl (7.4-10.4); MONO # 0.3 (0.1-0.6); MONO % 2.7 % (1.7-9.3); PLATELET COUNT 365 K/mm3 (130-400); RED BLOOD COUNT 4.96 M/mm3 (4.10-5.30); REDCELL DISTRIBUTION WIDTH-CV 13.5 % (11.5-14.5)
[2020-01-17 11:14] LABS: ALBUMIN 4.7 gm/dL (3.5-5.0); BILIRUBIN,TOTAL 0.5 mg/dL (0.0-1.0); CREATININE, serum 0.74 (0.52-1.25); POTASSIUM 3.5 mmol/L (3.4-5.0); TOTAL PROTEIN 8.6 gm/dL (6.4-8.2)
[2020-01-17 11:54] LABS: COLLECTION METHOD CLEAN CATCH
[2020-01-17 12:18] LABS: MUCOUS Present /lpf; PH 6 (5-8); SQUAMOUS EPITHELIAL 0-2 /hpf; URINE APPEARANCE Clear; URINE BACTERIA None Seen /hpf; URINE BILIRUBIN Negative (NEGATIVE); URINE BLOOD Negative (NEGATIVE); URINE COLOR Colorless; URINE GLUCOSE Negative (NEGATIVE); URINE KETONE Negative (NEGATIVE); URINE LEUKOCYTE ESTERASE Negative (NEGATIVE); URINE NITRATE Negative (NEGATIVE); URINE PROTEIN(semi-quant) Negative (NEGATIVE); URINE RBC 0-2 /hpf; URINE UROBILINOGEN Negative (NEGATIVE)
[2020-01-17 12:38] VITALS: BP 141/85; PULSE 97
== END 2020-01-17 12:38 | disposition home or self-care (01) ==
LOC: COL.ER 10:00
PROVIDERS: Physician Assistant
DX: R10.11 Right upper quadrant pain (principal); K83.4 Spasm of sphincter of Oddi; Z87.891 Personal history of nicotine dependence; F41.9 Anxiety disorder, unspecified; Z90.49 Acquired absence of other specified parts of digestive tract
CPT/HCPCS: J2060; J2550; J7030

== ENCOUNTER 2020-01-29 16:09 | Emergency (ER) | payer BC ==
[~2020-01-29] VITALS: Ht 157.5 cm; Wt 77.3 kg
[2020-01-29 16:14] VITALS: TEMP 97.9
[2020-01-29] MEDS ORDERED: KLONOPIN 0.5MG0.5 MG PO (16:18)
[2020-01-29] MEDS ORDERED: ROXICODONE 55 MG/TAB PO (16:18)
[2020-01-29] MEDS ORDERED: EMGALITY120 MG/1 M SQ (16:18)
[2020-01-29] MEDS ORDERED: PHENERGAN 25 TA25 MG PO (17:08)
[2020-01-29 17:15] VITALS: BP 145/89; PULSE 105
== END 2020-01-29 17:15 | disposition home or self-care (01) ==
LOC: COL.ER 16:09
DX: R10.10 Upper abdominal pain, unspecified (principal); G89.29 Other chronic pain; R11.2 Nausea with vomiting, unspecified; G43.909 Migraine, unspecified, not intractable, without status migrainosus; Z90.49 Acquired absence of other specified parts of digestive tract
CPT/HCPCS: J1170; J2550

== ENCOUNTER 2020-02-01 17:51 | Emergency (ER) | payer BC ==
[~2020-02-01] VITALS: Ht 157.5 cm; Wt 77.3 kg
[~2020-02-01 17:51] MED LIST changes: +EMGALITY120 MG/1 M SQ; +KLONOPIN 0.5MG0.5 MG PO
[2020-02-01 18:05] VITALS: BP 145/77; TEMP 97.7
[2020-02-01 19:03] LABS: COLLECTION METHOD CLEAN CATCH
[2020-02-01 19:06] LABS: BASO # 0.1 (0.0-0.2); EOS # 0.5 (0.0-0.7); EOS % 5.4 % (0-4.0); GRAN # 4.7 (1.4-6.5); GRAN % 55.7 % (42.2-75.2); HEMATOCRIT 38.2 % (37.0-47.0); HEMOGLOBIN 13.1 g/dl (12.5-16.0); LYMPH # 2.6 (1.2-3.4); LYMPH % 31.3 % (20.0-51.0); MEAN CELL VOLUME 87 fl (80.0-100.0); MEAN CORPUSCULAR HEMOGLOBIN 30 pg (27.0-31.0); MEAN CORPUSCULAR HGB CONC 34 g/dl (33.0-37.0); MEAN PLATELET VOLUME 11.1 fl (7.4-10.4); MONO # 0.5 (0.1-0.6); MONO % 5.4 % (1.7-9.3); PLATELET COUNT 352 K/mm3 (130-400); RED BLOOD COUNT 4.39 M/mm3 (4.10-5.30); REDCELL DISTRIBUTION WIDTH-CV 13.6 % (11.5-14.5)
[2020-02-01 19:10] LABS: PH 6 (5-8); SQUAMOUS EPITHELIAL None Seen /hpf; URINE APPEARANCE Clear; URINE BACTERIA None Seen /hpf; URINE BILIRUBIN Negative (NEGATIVE); URINE BLOOD Negative (NEGATIVE); URINE COLOR Straw; URINE GLUCOSE Negative (NEGATIVE); URINE KETONE Negative (NEGATIVE); URINE LEUKOCYTE ESTERASE Negative (NEGATIVE); URINE NITRATE Negative (NEGATIVE); URINE PROTEIN(semi-quant) Negative (NEGATIVE); URINE RBC 0-2 /hpf; URINE UROBILINOGEN Negative (NEGATIVE)
[2020-02-01 19:31] LABS: ALBUMIN 3.8 gm/dL (3.5-5.0); BILIRUBIN,TOTAL 0.3 mg/dL (0.0-1.0); CREATININE, serum 0.73 (0.52-1.25); TOTAL PROTEIN 7.1 gm/dL (6.4-8.2)
[2020-02-01 20:10] LABS: POTASSIUM 2.9 mmol/L (3.4-5.0)
[2020-02-01] MEDS ORDERED: K-DUR20 MEQ PO (20:29)
[2020-02-01 20:57] VITALS: PULSE 110
== END 2020-02-01 20:57 | disposition home or self-care (01) ==
LOC: COL.ER 17:51
PROVIDERS: Emergency Medicine
DX: R10.11 Right upper quadrant pain (principal); R10.12 Left upper quadrant pain; E87.6 Hypokalemia; G43.909 Migraine, unspecified, not intractable, without status migrainosus; Z90.710 Acquired absence of both cervix and uterus; Z90.89 Acquired absence of other organs; Z90.49 Acquired absence of other specified parts of digestive tract
CPT/HCPCS: J1170; J2550; J7030

== ENCOUNTER 2020-02-07 16:56 | Emergency (ER) | payer BC ==
[~2020-02-07] VITALS: Ht 157.5 cm; Wt 77.3 kg
[~2020-02-07 16:56] MED LIST changes: +K-DUR20 MEQ PO
[2020-02-07 17:00] VITALS: TEMP 97.1
[2020-02-07 18:49] VITALS: BP 125/87; PULSE 71
== END 2020-02-07 19:11 | disposition home or self-care (01) ==
LOC: COL.ER 16:56
DX: R10.13 Epigastric pain (principal); Z90.49 Acquired absence of other specified parts of digestive tract; Z90.710 Acquired absence of both cervix and uterus; Z87.891 Personal history of nicotine dependence; Z88.8 Allergy status to other drugs, medicaments and biological substances; Z88.4 Allergy status to anesthetic agent; Z88.1 Allergy status to other antibiotic agents; Z88.6 Allergy status to analgesic agent

== ENCOUNTER 2020-02-09 15:48 | Outpatient (CLI) | payer BC ==
[~2020-02-09] VITALS: Ht 157.5 cm; Wt 92.5 kg
[2020-02-09 16:00] VITALS: BP 124/78; PULSE 106; TEMP 98.8
== END 2020-02-09 19:00 | disposition home or self-care (01) ==
LOC: EUO 15:48
DX: K83.4 Spasm of sphincter of Oddi (principal); F41.8 Other specified anxiety disorders
CPT/HCPCS: J1170; J2550; J7030

== ENCOUNTER 2020-02-23 15:12 | Emergency (ER) | payer BC ==
[~2020-02-23] VITALS: Ht 157.5 cm; Wt 81.8 kg
[2020-02-23 15:40] VITALS: BP 120/75; TEMP 98.5
[2020-02-23 17:11] LABS: BASO # 0.1 (0.0-0.2); BASO % 0.8 % (0.0-2.0); EOS # 0.5 (0.0-0.7); GRAN # 6.3 (1.4-6.5); GRAN % 65.2 % (42.2-75.2); HEMATOCRIT 41.5 % (37.0-47.0); LYMPH # 2.3 (1.2-3.4); LYMPH % 23.8 % (20.0-51.0); MEAN CELL VOLUME 87 fl (80.0-100.0); MEAN CORPUSCULAR HEMOGLOBIN 29 pg (27.0-31.0); MEAN CORPUSCULAR HGB CONC 34 g/dl (33.0-37.0); MEAN PLATELET VOLUME 11.9 fl (7.4-10.4); MONO # 0.4 (0.1-0.6); MONO % 3.9 % (1.7-9.3); PLATELET COUNT 299 K/mm3 (130-400); RED BLOOD COUNT 4.77 M/mm3 (4.10-5.30); REDCELL DISTRIBUTION WIDTH-CV 13.2 % (11.5-14.5)
[2020-02-23 17:18] LABS: ALBUMIN 4.4 gm/dL (3.5-5.0); BILIRUBIN,TOTAL 0.3 mg/dL (0.0-1.0); CALCIUM 9.6 mg/dL (8.4-10.2); CREATININE, serum 0.87 (0.52-1.25); POTASSIUM 3.9 mmol/L (3.4-5.0); TOTAL PROTEIN 7.9 gm/dL (6.4-8.2)
[2020-02-23 17:47] VITALS: PULSE 98
== END 2020-02-23 17:45 | disposition home or self-care (01) ==
LOC: COL.ER 15:12
PROVIDERS: Family Medicine
DX: R11.2 Nausea with vomiting, unspecified (principal); R10.9 Unspecified abdominal pain
CPT/HCPCS: J1170; J1200; J1790; J2550

== ENCOUNTER 2020-02-25 16:09 | Emergency (ER) | payer BC ==
[~2020-02-25] VITALS: Ht 157.5 cm; Wt 77.3 kg
[2020-02-25 16:14] VITALS: BP 119/83; TEMP 98.2
[2020-02-25 17:34] VITALS: PULSE 93
== END 2020-02-25 17:34 | disposition home or self-care (01) ==
LOC: COL.ER 16:09
DX: R10.11 Right upper quadrant pain (principal); G89.29 Other chronic pain; R11.2 Nausea with vomiting, unspecified; Z90.49 Acquired absence of other specified parts of digestive tract; Z90.710 Acquired absence of both cervix and uterus; Z88.8 Allergy status to other drugs, medicaments and biological substances; Z88.1 Allergy status to other antibiotic agents; Z88.6 Allergy status to analgesic agent
CPT/HCPCS: J1170; J2550

== ENCOUNTER 2020-02-26 13:47 | Outpatient (CLI) | payer BC ==
[~2020-02-26] VITALS: Ht 157.5 cm; Wt 91.6 kg
--- NOTE | 2020-02-26 14:00 | NUR ---
Pt arrived via ambulatory.Observed alert and orientated x 3,respirations even and unlabored.Pt requested to "sit in the group room so I may have some socialization today." This nurse reported to pt that no available seats available in the infusion room.Pt escorted to room 14 whenre bed is available.CHELITA Herzog asked to assist with IV.
[2020-02-26 16:58] VITALS: BP 109/77; PULSE 70; TEMP 98
== END 2020-02-26 16:59 | disposition home or self-care (01) ==
LOC: EUO 13:47
DX: Z01.89 Encounter for other specified special examinations (principal)
CPT/HCPCS: J1170; J2550; J7030

== ENCOUNTER 2020-03-03 16:02 | Emergency (ER) | payer BC ==
[~2020-03-03] VITALS: Ht 157.5 cm; Wt 81.8 kg
[2020-03-03 16:04] VITALS: TEMP 97.4
[2020-03-03 16:36] LABS: HEMOGLOBIN 14.1 g/dl (12.5-16.0); MEAN CELL VOLUME 86 fl (80.0-100.0); MEAN CORPUSCULAR HEMOGLOBIN 29 pg (27.0-31.0); MEAN CORPUSCULAR HGB CONC 34 g/dl (33.0-37.0); MEAN PLATELET VOLUME 11.4 fl (7.4-10.4); PLATELET COUNT 343 K/mm3 (130-400); RED BLOOD COUNT 4.91 M/mm3 (4.10-5.30); REDCELL DISTRIBUTION WIDTH-CV 13.2 % (11.5-14.5)
[2020-03-03] MEDS ORDERED: PHENERGAN 25 TA25 MG PO (16:46)
[2020-03-03 16:48] LABS: ALBUMIN 4.7 gm/dL (3.5-5.0); BILIRUBIN,TOTAL 0.4 mg/dL (0.0-1.0); C-REACTIVE PROTEIN 1.6 mg/dL (0.0-0.9); CREATININE, serum 0.8 (0.52-1.25); POTASSIUM 3.5 mmol/L (3.4-5.0); TOTAL PROTEIN 8.3 gm/dL (6.4-8.2)
[2020-03-03 17:35] VITALS: BP 121/75; PULSE 94
[2020-03-03 17:44] LABS: EOSINOPHIL 4 % (0-4); LYMPHOCYTE 37 % (20.0-51.0); NEUTROPHILS 53 % (42.0-75.2)
[2020-03-03 17:46] LABS: STOMATOCYTE 1+
== END 2020-03-03 17:38 | disposition home or self-care (01) ==
LOC: COL.ER 16:02
PROVIDERS: Emergency Medicine
DX: R10.11 Right upper quadrant pain (principal); G89.29 Other chronic pain; Z90.49 Acquired absence of other specified parts of digestive tract
CPT/HCPCS: J1170; J2405; J2550; J7030

== ENCOUNTER 2020-03-04 22:13 | Emergency (ER) | payer BC ==
[~2020-03-04] VITALS: Ht 157.5 cm; Wt 81.8 kg
[2020-03-05 02:15] VITALS: BP 110/64; PULSE 78; TEMP 97.9
== END 2020-03-05 02:35 | disposition home or self-care (01) ==
LOC: COL.ER 22:13
DX: R11.10 Vomiting, unspecified (principal); G89.29 Other chronic pain; R10.11 Right upper quadrant pain; Z90.49 Acquired absence of other specified parts of digestive tract
CPT/HCPCS: J1790

== ENCOUNTER 2020-03-11 14:15 | Emergency (ER) | payer BC ==
[~2020-03-11] VITALS: Ht 157.5 cm; Wt 81.8 kg
[2020-03-11 16:32] VITALS: BP 119/71; PULSE 108; TEMP 98.8
== END 2020-03-11 16:37 | disposition home or self-care (01) ==
LOC: COL.ER 14:15
DX: K83.4 Spasm of sphincter of Oddi (principal); F42.9 Obsessive-compulsive disorder, unspecified; F41.9 Anxiety disorder, unspecified; G43.909 Migraine, unspecified, not intractable, without status migrainosus; Z90.49 Acquired absence of other specified parts of digestive tract; Z90.710 Acquired absence of both cervix and uterus; Z88.1 Allergy status to other antibiotic agents; Z88.6 Allergy status to analgesic agent
CPT/HCPCS: J1170; J2405; J2550

== ENCOUNTER 2020-03-13 13:52 | Emergency (ER) | payer BC ==
[~2020-03-13] VITALS: Ht 157.5 cm; Wt 81.8 kg
[2020-03-13 14:02] VITALS: TEMP 97.1
[2020-03-13 14:37] LABS: BASO # 0.1 (0.0-0.2); BASO % 0.9 % (0.0-2.0); EOS # 0.6 (0.0-0.7); EOS % 6.8 % (0-4.0); GRAN # 5.2 (1.4-6.5); GRAN % 55.7 % (42.2-75.2); HEMATOCRIT 41.4 % (37.0-47.0); HEMOGLOBIN 13.9 g/dl (12.5-16.0); LYMPH # 2.9 (1.2-3.4); LYMPH % 30.8 % (20.0-51.0); MEAN CELL VOLUME 86 fl (80.0-100.0); MEAN CORPUSCULAR HEMOGLOBIN 29 pg (27.0-31.0); MEAN CORPUSCULAR HGB CONC 34 g/dl (33.0-37.0); MONO # 0.5 (0.1-0.6); MONO % 4.8 % (1.7-9.3); PLATELET COUNT 346 K/mm3 (130-400); RED BLOOD COUNT 4.79 M/mm3 (4.10-5.30); REDCELL DISTRIBUTION WIDTH-CV 13.5 % (11.5-14.5)
[2020-03-13 14:49] LABS: ALBUMIN 4.6 gm/dL (3.5-5.0); BILIRUBIN,TOTAL 0.4 mg/dL (0.0-1.0); CALCIUM 9.6 mg/dL (8.4-10.2); CREATININE, serum 0.69 (0.52-1.25); POTASSIUM 4.1 mmol/L (3.4-5.0)
[2020-03-13 16:05] LABS: COLLECTION METHOD CLEAN CATCH
[2020-03-13 16:16] LABS: MUCOUS Present /lpf; PH 5 (5-8); SQUAMOUS EPITHELIAL 0-2 /hpf; URINE APPEARANCE Clear; URINE BACTERIA None Seen /hpf; URINE BILIRUBIN Negative (NEGATIVE); URINE BLOOD 1+ (NEGATIVE); URINE COLOR Straw; URINE GLUCOSE Negative (NEGATIVE); URINE KETONE Negative (NEGATIVE); URINE LEUKOCYTE ESTERASE Negative (NEGATIVE); URINE NITRATE Negative (NEGATIVE); URINE PROTEIN(semi-quant) Negative (NEGATIVE); URINE RBC None Seen /hpf; URINE UROBILINOGEN Negative (NEGATIVE)
[2020-03-13 16:20] VITALS: BP 119/74; PULSE 81
[2020-03-13 16:38] LABS: TRICYCLIC ANTIDEPRESS URINE NEGATIVE
== END 2020-03-13 16:35 | disposition home or self-care (01) ==
LOC: COL.ER 13:52
PROVIDERS: Physician Assistant
DX: R10.11 Right upper quadrant pain (principal); G89.29 Other chronic pain; R11.2 Nausea with vomiting, unspecified; F32.9 Major depressive disorder, single episode, unspecified; F41.9 Anxiety disorder, unspecified; Z90.49 Acquired absence of other specified parts of digestive tract; Z90.710 Acquired absence of both cervix and uterus; Z88.6 Allergy status to analgesic agent; Z79.899 Other long term (current) drug therapy; Z79.891 Long term (current) use of opiate analgesic
CPT/HCPCS: J1170; J2405; J2550; J7030

== ENCOUNTER 2020-03-15 21:35 | Emergency (ER) | payer BC ==
[~2020-03-15] VITALS: Ht 157.5 cm; Wt 81.8 kg
[2020-03-15 21:46] VITALS: BP 124/81; TEMP 96.7
[2020-03-16 00:02] VITALS: PULSE 88
== END 2020-03-16 00:02 | disposition home or self-care (01) ==
LOC: COL.ER 21:35
DX: S06.0X1A Concussion with loss of consciousness of 30 minutes or less, initial encounter (principal); G43.909 Migraine, unspecified, not intractable, without status migrainosus; R40.2410 Glasgow coma scale score 13-15, unspecified time; Z88.1 Allergy status to other antibiotic agents; Z88.4 Allergy status to anesthetic agent; Z88.6 Allergy status to analgesic agent; W01.198A Fall on same level from slipping, tripping and stumbling with subsequent striking against other object, initial encounter; Y92.009 Unspecified place in unspecified non-institutional (private) residence as the place of occurrence of the external cause
CPT/HCPCS: J2550

== ENCOUNTER 2020-03-18 15:00 | Outpatient (CLI) | payer BC ==
[2020-03-18] MEDS ORDERED: GEODON60 MG PO (15:53)
[2020-03-18] MEDS ORDERED: DAZIDOX10 MG PO (15:53)
[2020-03-18 15:55] VITALS: BP 116/80; PULSE 95; TEMP 99
[2020-03-21] MEDS ORDERED: PHENERGAN 25 TA25 MG PO (12:25)
== END 2020-03-18 19:09 | disposition home or self-care (01) ==
LOC: EUO 15:00
DX: Z01.89 Encounter for other specified special examinations (principal)
CPT/HCPCS: J1170; J2550; J7030

== ENCOUNTER → 2020-03-21 | Emergency (ER) | payer BC ==
[~2020-03-21] VITALS: Ht 157.5 cm; Wt 81.8 kg
[2020-03-21 13:36] VITALS: BP 110/75; PULSE 95; TEMP 98.7
== END ==
LOC: COL.ER 09:43
DX: R10.11 Right upper quadrant pain (principal); G89.29 Other chronic pain; R11.2 Nausea with vomiting, unspecified; G43.909 Migraine, unspecified, not intractable, without status migrainosus; Z90.49 Acquired absence of other specified parts of digestive tract; Z90.710 Acquired absence of both cervix and uterus; Z88.1 Allergy status to other antibiotic agents; Z88.6 Allergy status to analgesic agent
CPT/HCPCS: J1170; J2405; J2550; J7030

== ENCOUNTER 2020-03-22 08:08 | Emergency (ER) | payer BC ==
[~2020-03-22] VITALS: Ht 157.5 cm; Wt 81.8 kg
[2020-03-22 10:08] LABS: BASO # 0.1 (0.0-0.2); BASO % 0.6 % (0.0-2.0); EOS # 0.7 (0.0-0.7); EOS % 7.3 % (0-4.0); GRAN # 5.7 (1.4-6.5); GRAN % 64.1 % (42.2-75.2); HEMATOCRIT 38.7 % (37.0-47.0); HEMOGLOBIN 12.6 g/dl (12.5-16.0); LYMPH % 22.9 % (20.0-51.0); MEAN CELL VOLUME 88 fl (80.0-100.0); MEAN CORPUSCULAR HEMOGLOBIN 29 pg (27.0-31.0); MEAN CORPUSCULAR HGB CONC 33 g/dl (33.0-37.0); MEAN PLATELET VOLUME 10.8 fl (7.4-10.4); MONO # 0.4 (0.1-0.6); MONO % 4.4 % (1.7-9.3); PLATELET COUNT 285 K/mm3 (130-400); RED BLOOD COUNT 4.41 M/mm3 (4.10-5.30); REDCELL DISTRIBUTION WIDTH-CV 13.5 % (11.5-14.5)
[2020-03-22 10:24] LABS: BILIRUBIN,TOTAL 0.3 mg/dL (0.0-1.0); CALCIUM 9.1 mg/dL (8.4-10.2); CREATININE, serum 0.72 (0.52-1.25); TOTAL PROTEIN 7.1 gm/dL (6.4-8.2)
[2020-03-22 11:38] VITALS: BP 115/75; PULSE 88; TEMP 98.1
== END 2020-03-22 10:30 | disposition home or self-care (01) ==
LOC: COL.ER 08:08
PROVIDERS: Nurse Practitioner Primary Care
DX: R10.84 Generalized abdominal pain (principal); R11.2 Nausea with vomiting, unspecified; Z88.1 Allergy status to other antibiotic agents; Z88.6 Allergy status to analgesic agent; Z88.8 Allergy status to other drugs, medicaments and biological substances
CPT/HCPCS: J1790; J2550; J7030

== ENCOUNTER 2020-03-26 17:12 | Emergency (ER) | payer BC ==
[~2020-03-26 17:12] MED LIST changes: -FENTANYL 75MCG TD; +FENTANYL62.5 MCG/H TD
[2020-03-26 17:27] VITALS: TEMP 97.5
[2020-03-26 18:23] VITALS: BP 123/83; PULSE 102
[2020-04-04] MEDS ORDERED: ZOLOFT 25MG25 MG PO (17:48)
== END 2020-03-26 18:25 | disposition home or self-care (01) ==
LOC: COL.ER 17:12
DX: K83.4 Spasm of sphincter of Oddi (principal); Z90.49 Acquired absence of other specified parts of digestive tract; Z90.710 Acquired absence of both cervix and uterus; Z88.8 Allergy status to other drugs, medicaments and biological substances; Z88.1 Allergy status to other antibiotic agents; Z88.4 Allergy status to anesthetic agent; Z88.6 Allergy status to analgesic agent
CPT/HCPCS: J1170; J2405; J2550

== ENCOUNTER 2020-04-11 13:17 | Outpatient (CLI) | payer BC ==
[~2020-04-11] VITALS: Ht 157.5 cm; Wt 115.9 kg
[~2020-04-11 13:17] MED LIST changes: +FENTANYL 75MCG TD; -FENTANYL62.5 MCG/H TD
[2020-04-11 14:50] VITALS: BP 101/68; PULSE 62; TEMP 98.2
[2020-04-11 15:20] LABS: BASO # 0.1 (0.0-0.2); BASO % 0.8 % (0.0-2.0); EOS # 0.4 (0.0-0.7); EOS % 4.7 % (0-4.0); GRAN % 56.9 % (42.2-75.2); HEMATOCRIT 42.5 % (37.0-47.0); HEMOGLOBIN 14.1 g/dl (12.5-16.0); LYMPH # 2.8 (1.2-3.4); LYMPH % 32.3 % (20.0-51.0); MEAN CELL VOLUME 86 fl (80.0-100.0); MEAN CORPUSCULAR HEMOGLOBIN 29 pg (27.0-31.0); MEAN CORPUSCULAR HGB CONC 33 g/dl (33.0-37.0); MEAN PLATELET VOLUME 11.2 fl (7.4-10.4); MONO # 0.4 (0.1-0.6); PLATELET COUNT 313 K/mm3 (130-400); RED BLOOD COUNT 4.92 M/mm3 (4.10-5.30); REDCELL DISTRIBUTION WIDTH-CV 13.5 % (11.5-14.5)
[2020-04-11 15:30] LABS: ALBUMIN 4.6 gm/dL (3.5-5.0); BILIRUBIN,TOTAL 0.3 mg/dL (0.0-1.0); CALCIUM 9.7 mg/dL (8.4-10.2); CREATININE, serum 0.75 (0.52-1.25); POTASSIUM 4.1 mmol/L (3.4-5.0); TOTAL PROTEIN 8.1 gm/dL (6.4-8.2)
== END 2020-04-11 17:48 | disposition home or self-care (01) ==
LOC: EUO 13:17
PROVIDERS: Family Medicine
DX: R11.15 Cyclical vomiting syndrome unrelated to migraine (principal); G89.29 Other chronic pain
CPT/HCPCS: J1170; J2550; J7030

== ENCOUNTER 2020-04-15 17:21 | Emergency (ER) | payer BC ==
[~2020-04-15] VITALS: Ht 157.5 cm; Wt 81.8 kg
[2020-04-15 17:51] VITALS: TEMP 97.9
[2020-04-15 19:36] VITALS: BP 132/79; PULSE 90
[2020-04-15] MEDS ORDERED: PHENERGAN 25 TA25 MG PO (19:38)
== END 2020-04-15 19:45 | disposition home or self-care (01) ==
LOC: COL.ER 17:21
DX: R10.11 Right upper quadrant pain (principal); F31.9 Bipolar disorder, unspecified; K85.90 Acute pancreatitis without necrosis or infection, unspecified; Z90.49 Acquired absence of other specified parts of digestive tract; Z90.710 Acquired absence of both cervix and uterus; Z87.891 Personal history of nicotine dependence; Z88.8 Allergy status to other drugs, medicaments and biological substances; Z88.1 Allergy status to other antibiotic agents
CPT/HCPCS: J1170; J2550

== ENCOUNTER 2020-04-29 18:17 | Emergency (ER) | payer BC ==
[~2020-04-29] VITALS: Ht 157.5 cm; Wt 81.8 kg
[2020-04-29 18:48] LABS: BASO # 0.1 (0.0-0.2); BASO % 0.7 % (0.0-2.0); EOS # 0.4 (0.0-0.7); EOS % 4.1 % (0-4.0); GRAN # 5.1 (1.4-6.5); GRAN % 57.1 % (42.2-75.2); HEMATOCRIT 40.3 % (37.0-47.0); HEMOGLOBIN 13.5 g/dl (12.5-16.0); LYMPH % 33.9 % (20.0-51.0); MEAN CELL VOLUME 84 fl (80.0-100.0); MEAN CORPUSCULAR HEMOGLOBIN 28 pg (27.0-31.0); MEAN CORPUSCULAR HGB CONC 34 g/dl (33.0-37.0); MONO # 0.3 (0.1-0.6); MONO % 3.6 % (1.7-9.3); PLATELET COUNT 319 K/mm3 (130-400); RED BLOOD COUNT 4.78 M/mm3 (4.10-5.30); REDCELL DISTRIBUTION WIDTH-CV 13.1 % (11.5-14.5)
[2020-04-29 19:01] LABS: ALBUMIN 4.2 gm/dL (3.5-5.0); BILIRUBIN,TOTAL 0.3 mg/dL (0.0-1.0); CALCIUM 9.2 mg/dL (8.4-10.2); CREATININE, serum 0.7 (0.52-1.25); POTASSIUM 3.4 mmol/L (3.4-5.0); TOTAL PROTEIN 7.5 gm/dL (6.4-8.2)
[2020-04-29] MEDS ORDERED: PHENERGAN 25 TA25 MG PO (20:00)
[2020-04-29 20:15] VITALS: BP 147/82; PULSE 94; TEMP 98.1
== END 2020-04-29 20:20 | disposition home or self-care (01) ==
LOC: COL.ER 18:17
PROVIDERS: Emergency Medicine
DX: G89.29 Other chronic pain (principal); R11.2 Nausea with vomiting, unspecified; R10.11 Right upper quadrant pain; Z88.1 Allergy status to other antibiotic agents; Z88.8 Allergy status to other drugs, medicaments and biological substances; Z90.710 Acquired absence of both cervix and uterus
CPT/HCPCS: J1170; J1200; J2405; J2550; J7030

== ENCOUNTER 2020-05-03 15:57 | Emergency (ER) | payer BC ==
[~2020-05-03] VITALS: Ht 157.5 cm; Wt 81.8 kg
[2020-05-03 16:18] VITALS: BP 129/85; TEMP 97.7
[2020-05-03 17:14] VITALS: PULSE 112
== END 2020-05-03 17:13 | disposition home or self-care (01) ==
LOC: COL.ER 15:57
DX: G89.29 Other chronic pain (principal); R10.10 Upper abdominal pain, unspecified
CPT/HCPCS: J1170; J2405

== ENCOUNTER 2020-05-05 04:10 | Emergency (ER) | payer BC ==
[~2020-05-05] VITALS: Ht 157.5 cm; Wt 81.8 kg
[~2020-05-05 04:10] MED LIST changes: -FENTANYL 75MCG TD; +FENTANYL62.5 MCG/H TD
[2020-05-05 04:16] VITALS: TEMP 98.5
[2020-05-05 05:23] LABS: BASO # 0.1 (0.0-0.2); BASO % 0.6 % (0.0-2.0); EOS # 0.5 (0.0-0.7); EOS % 4.9 % (0-4.0); GRAN # 6.8 (1.4-6.5); GRAN % 64.5 % (42.2-75.2); HEMATOCRIT 41.9 % (37.0-47.0); HEMOGLOBIN 13.7 g/dl (12.5-16.0); LYMPH # 2.7 (1.2-3.4); LYMPH % 25.2 % (20.0-51.0); MEAN CELL VOLUME 87 fl (80.0-100.0); MEAN CORPUSCULAR HEMOGLOBIN 28 pg (27.0-31.0); MEAN CORPUSCULAR HGB CONC 33 g/dl (33.0-37.0); MEAN PLATELET VOLUME 11.7 fl (7.4-10.4); MONO # 0.5 (0.1-0.6); MONO % 4.3 % (1.7-9.3); PLATELET COUNT 310 K/mm3 (130-400); RED BLOOD COUNT 4.82 M/mm3 (4.10-5.30); REDCELL DISTRIBUTION WIDTH-CV 13.7 % (11.5-14.5)
[2020-05-05 05:36] LABS: ALBUMIN 4.4 gm/dL (3.5-5.0); BILIRUBIN,TOTAL 0.3 mg/dL (0.0-1.0); CALCIUM 9.4 mg/dL (8.4-10.2); CREATININE, serum 0.75 (0.52-1.25); POTASSIUM 3.9 mmol/L (3.4-5.0); TOTAL PROTEIN 7.5 gm/dL (6.4-8.2)
[2020-05-05 06:15] VITALS: BP 106/65; PULSE 88
== END 2020-05-05 06:15 | disposition home or self-care (01) ==
LOC: COL.ER 04:10
PROVIDERS: Family Medicine
DX: R10.13 Epigastric pain (principal); R11.2 Nausea with vomiting, unspecified; G43.909 Migraine, unspecified, not intractable, without status migrainosus; Z88.6 Allergy status to analgesic agent; Z88.1 Allergy status to other antibiotic agents; Z88.8 Allergy status to other drugs, medicaments and biological substances; Z87.891 Personal history of nicotine dependence
CPT/HCPCS: J1170; J2405; J7030

== ENCOUNTER 2020-05-11 12:49 | Emergency (ER) | payer BC ==
[~2020-05-11] VITALS: Ht 157.5 cm; Wt 81.8 kg
[~2020-05-11 12:49] MED LIST changes: +FENTANYL 75MCG TD; -FENTANYL62.5 MCG/H TD
[2020-05-11 12:58] VITALS: BP 136/82; TEMP 97.4
[2020-05-11 15:00] VITALS: PULSE 105
== END 2020-05-11 15:01 | disposition home or self-care (01) ==
LOC: COL.ER 12:49
DX: R10.10 Upper abdominal pain, unspecified (principal); G89.29 Other chronic pain; R11.2 Nausea with vomiting, unspecified; R00.0 Tachycardia, unspecified; Z90.722 Acquired absence of ovaries, bilateral; Z90.710 Acquired absence of both cervix and uterus; Z90.49 Acquired absence of other specified parts of digestive tract; Z88.1 Allergy status to other antibiotic agents; Z88.4 Allergy status to anesthetic agent; Z88.5 Allergy status to narcotic agent; Z88.6 Allergy status to analgesic agent; Z88.8 Allergy status to other drugs, medicaments and biological substances
CPT/HCPCS: J1170

== ENCOUNTER 2020-05-20 14:49 | Emergency (ER) | payer MEDICARE ==
[~2020-05-20] VITALS: Ht 157.5 cm; Wt 86.4 kg
[2020-05-20 15:01] VITALS: TEMP 98.9
[2020-05-20 15:28] VITALS: BP 129/69; PULSE 96
== END 2020-05-20 15:28 | disposition home or self-care (01) ==
LOC: COL.ER 14:49
DX: R10.9 Unspecified abdominal pain (principal); G89.29 Other chronic pain; F11.20 Opioid dependence, uncomplicated; Z90.710 Acquired absence of both cervix and uterus; Z90.49 Acquired absence of other specified parts of digestive tract; Z88.1 Allergy status to other antibiotic agents; Z88.4 Allergy status to anesthetic agent; Z88.5 Allergy status to narcotic agent; Z88.6 Allergy status to analgesic agent; Z88.8 Allergy status to other drugs, medicaments and biological substances
CPT/HCPCS: J1200; J2765

== ENCOUNTER 2020-05-25 16:40 | Emergency (ER) | payer MEDICARE ==
[~2020-05-25] VITALS: Ht 157.5 cm; Wt 86.4 kg
[2020-05-25 16:53] VITALS: BP 154/92; TEMP 97.6
[2020-05-25 18:41] VITALS: PULSE 98
== END 2020-05-25 18:41 | disposition home or self-care (01) ==
LOC: COL.ER 16:40
DX: G89.29 Other chronic pain (principal); R10.10 Upper abdominal pain, unspecified; R11.2 Nausea with vomiting, unspecified; Z80.9 Family history of malignant neoplasm, unspecified; F32.9 Major depressive disorder, single episode, unspecified; G43.909 Migraine, unspecified, not intractable, without status migrainosus; Z88.8 Allergy status to other drugs, medicaments and biological substances; Z88.1 Allergy status to other antibiotic agents; Z87.891 Personal history of nicotine dependence
CPT/HCPCS: J1170; J2550; J7030

== ENCOUNTER 2020-06-01 17:00 | Emergency (ER) | payer MEDICARE ==
[~2020-06-01] VITALS: Ht 157.5 cm; Wt 86.4 kg
[2020-06-01 17:08] VITALS: TEMP 97
[2020-06-01 18:25] VITALS: BP 126/91; PULSE 101
== END 2020-06-01 18:25 | disposition home or self-care (01) ==
LOC: COL.ER 17:00
DX: G89.29 Other chronic pain (principal); R10.9 Unspecified abdominal pain; R11.2 Nausea with vomiting, unspecified; Z80.9 Family history of malignant neoplasm, unspecified; Z88.1 Allergy status to other antibiotic agents; Z88.8 Allergy status to other drugs, medicaments and biological substances; Z87.891 Personal history of nicotine dependence
CPT/HCPCS: J1170; J2550

== ENCOUNTER 2020-06-06 10:11 | Emergency (ER) | payer MEDICARE ==
[~2020-06-06] VITALS: Ht 157.5 cm; Wt 86.4 kg
[2020-06-06 10:17] VITALS: TEMP 98.7
[2020-06-06 11:08] LABS: COLLECTION METHOD CLEAN CATCH
[2020-06-06 11:22] LABS: MUCOUS Present /lpf; PH 6 (5-8); SQUAMOUS EPITHELIAL 0-2 /hpf; URINE APPEARANCE Clear; URINE BACTERIA None Seen /hpf; URINE BILIRUBIN Negative (NEGATIVE); URINE BLOOD Negative (NEGATIVE); URINE COLOR Straw; URINE GLUCOSE Negative (NEGATIVE); URINE KETONE Negative (NEGATIVE); URINE LEUKOCYTE ESTERASE Negative (NEGATIVE); URINE NITRATE Negative (NEGATIVE); URINE PROTEIN(semi-quant) Negative (NEGATIVE); URINE RBC 0-2 /hpf; URINE UROBILINOGEN Negative (NEGATIVE)
[2020-06-06 11:50] VITALS: BP 138/78; PULSE 88
== END 2020-06-06 11:51 | disposition home or self-care (01) ==
LOC: COL.ER 10:11
PROVIDERS: Family Medicine
DX: G89.29 Other chronic pain (principal); R10.9 Unspecified abdominal pain; R11.2 Nausea with vomiting, unspecified; G43.909 Migraine, unspecified, not intractable, without status migrainosus; Z88.1 Allergy status to other antibiotic agents; Z88.8 Allergy status to other drugs, medicaments and biological substances; Z87.891 Personal history of nicotine dependence
CPT/HCPCS: J1170; J2550

== ENCOUNTER 2020-06-13 12:16 | Emergency (ER) | payer MEDICARE ==
[~2020-06-13] VITALS: Ht 157.5 cm; Wt 86.4 kg
[2020-06-13 12:35] VITALS: BP 143/95; TEMP 98
[2020-06-13 15:43] VITALS: PULSE 90
== END 2020-06-13 15:45 | disposition home or self-care (01) ==
LOC: COL.ER 12:16
DX: R10.9 Unspecified abdominal pain (principal); G89.29 Other chronic pain; R11.2 Nausea with vomiting, unspecified; Z80.9 Family history of malignant neoplasm, unspecified; Z87.891 Personal history of nicotine dependence; Z90.89 Acquired absence of other organs; Z90.722 Acquired absence of ovaries, bilateral; Z90.710 Acquired absence of both cervix and uterus; Z90.49 Acquired absence of other specified parts of digestive tract; Z88.1 Allergy status to other antibiotic agents; Z88.5 Allergy status to narcotic agent; Z88.6 Allergy status to analgesic agent; Z88.8 Allergy status to other drugs, medicaments and biological substances
CPT/HCPCS: J1170; J2550; J7030

== ENCOUNTER 2020-07-03 12:00 | Emergency (ER) | payer MEDICARE ==
[~2020-07-03] VITALS: Ht 160 cm; Wt 81.8 kg
[~2020-07-03 12:00] MED LIST changes: -FENTANYL 75MCG TD; +FENTANYL62.5 MCG/H TD
[2020-07-03 12:05] VITALS: TEMP 98
[2020-07-03 12:54] LABS: BASO # 0.1 (0.0-0.2); BASO % 0.9 % (0.0-2.0); EOS # 0.1 (0.0-0.7); EOS % 1.2 % (0-4.0); GRAN # 4.9 (1.4-6.5); HEMATOCRIT 41.6 % (37.0-47.0); HEMOGLOBIN 13.8 g/dl (12.5-16.0); LYMPH # 1.5 (1.2-3.4); LYMPH % 22.4 % (20.0-51.0); MEAN CELL VOLUME 86 fl (80.0-100.0); MEAN CORPUSCULAR HEMOGLOBIN 29 pg (27.0-31.0); MEAN CORPUSCULAR HGB CONC 33 g/dl (33.0-37.0); MONO # 0.3 (0.1-0.6); MONO % 3.9 % (1.7-9.3); PLATELET COUNT 314 K/mm3 (130-400); RED BLOOD COUNT 4.85 M/mm3 (4.10-5.30); REDCELL DISTRIBUTION WIDTH-CV 13.9 % (11.5-14.5)
[2020-07-03 13:06] LABS: ALANINE AMINOTRANSFERASE 60 U/L (4-34); ALBUMIN 4.5 gm/dL (3.5-5.0); ALKALINE PHOSPHATASE 119 U/L (50-136); ANION GAP 9 mmol/L (7-16); AST,SGOT 59 U/L (15-37); BILIRUBIN,TOTAL 0.7 mg/dL (0.0-1.0); BLOOD UREA NITROGEN 9 mg/dL (7-17); CALCIUM 9.7 mg/dL (8.4-10.2); CARBON DIOXIDE 30 mmol/L (22-30); CHLORIDE 102 mmol/L (98-107); CREATININE, serum 0.76 (0.52-1.25); GLUCOSE 122 mg/dL (74-106); SODIUM 142 mmol/L (137-145); TOTAL PROTEIN 7.8 gm/dL (6.4-8.2)
[2020-07-03 13:08] LABS: ALCOHOL(ethanol),MEDICAL < 10 mg/dL
[2020-07-03 13:25] LABS: TROPONIN-I < 0.012 ng/mL (0.000-0.035)
[2020-07-03 13:28] LABS: VALPROIC ACID (DEPAKENE) 60.2 ug/mL (50.0-100.0)
[2020-07-03 13:53] VITALS: BP 123/88; PULSE 91
[2020-07-04] MEDS ORDERED: XANAX XR1 M1 PO (09:19)
[2020-07-04] MEDS ORDERED: DEPAKOTE 250MG250 MG PO (09:19)
[2020-07-04] MEDS ORDERED: SEROQUEL 2525 MG/TAB PO (09:20)
[2020-07-04] MEDS ORDERED: ABILIFY30 MG PO (09:20)
[2020-07-04] MEDS ORDERED: ZOFRAN ODT8 MG PO (09:20)
== END 2020-07-03 13:53 | disposition home or self-care (01) ==
LOC: COL.ER 12:00
PROVIDERS: Emergency Medicine
DX: R42 Dizziness and giddiness (principal); G89.29 Other chronic pain; R41.0 Disorientation, unspecified; R47.9 Unspecified speech disturbances; Z88.1 Allergy status to other antibiotic agents; Z88.8 Allergy status to other drugs, medicaments and biological substances; Z87.891 Personal history of nicotine dependence

== ENCOUNTER 2020-07-04 09:12 | Emergency (ER) | payer MEDICARE ==
[~2020-07-04] VITALS: Ht 157.5 cm; Wt 81.8 kg
[2020-07-04 09:16] VITALS: BP 116/69; TEMP 97.4
[2020-07-04] MEDS ORDERED: XANAX XR1 M1 PO (09:19)
[2020-07-04] MEDS ORDERED: DEPAKOTE 250MG250 MG PO (09:19)
[2020-07-04] MEDS ORDERED: ZOFRAN ODT8 MG PO (09:20)
[2020-07-04] MEDS ORDERED: SEROQUEL 2525 MG/TAB PO (09:20)
[2020-07-04] MEDS ORDERED: ABILIFY30 MG PO (09:20)
[2020-07-04 10:21] VITALS: PULSE 84
== END 2020-07-04 10:22 | disposition home or self-care (01) ==
LOC: COL.ER 09:12
DX: G89.29 Other chronic pain (principal); R42 Dizziness and giddiness; F11.20 Opioid dependence, uncomplicated; Z88.1 Allergy status to other antibiotic agents; Z88.8 Allergy status to other drugs, medicaments and biological substances
CPT/HCPCS: J1170; J2550

== ENCOUNTER 2020-07-07 16:22 | Emergency (ER) | payer MEDICARE ==
[~2020-07-07] VITALS: Ht 157.5 cm; Wt 81.8 kg
[~2020-07-07 16:22] MED LIST changes: +ABILIFY30 MG PO; +DEPAKOTE 250MG250 MG PO; +SEROQUEL 2525 MG/TAB PO; +XANAX XR1 M1 PO
[2020-07-07 16:25] VITALS: TEMP 97.8
[2020-07-07] MEDS ORDERED: PHENERGAN 25 TA25 MG PO (17:30)
[2020-07-07 18:02] VITALS: BP 125/93; PULSE 98
== END 2020-07-07 18:04 | disposition home or self-care (01) ==
LOC: COL.ER 16:22
DX: R10.11 Right upper quadrant pain (principal); G89.29 Other chronic pain; R00.0 Tachycardia, unspecified; Z90.722 Acquired absence of ovaries, bilateral; Z90.710 Acquired absence of both cervix and uterus; Z90.49 Acquired absence of other specified parts of digestive tract; Z87.891 Personal history of nicotine dependence; Z88.1 Allergy status to other antibiotic agents; Z88.4 Allergy status to anesthetic agent; Z88.6 Allergy status to analgesic agent; Z88.8 Allergy status to other drugs, medicaments and biological substances
CPT/HCPCS: J2550

== ENCOUNTER 2020-07-24 11:39 | Emergency (ER) | payer MEDICARE ==
[~2020-07-24] VITALS: Ht 157.5 cm; Wt 86.4 kg
[2020-07-24 11:45] VITALS: BP 136/97; PULSE 129; TEMP 97.7
== END 2020-07-24 12:21 | disposition home or self-care (01) ==
LOC: COL.ER 11:39
DX: R10.9 Unspecified abdominal pain (principal); G89.29 Other chronic pain; Z90.722 Acquired absence of ovaries, bilateral; Z90.49 Acquired absence of other specified parts of digestive tract; Z90.710 Acquired absence of both cervix and uterus; Z90.89 Acquired absence of other organs; Z88.1 Allergy status to other antibiotic agents; Z88.4 Allergy status to anesthetic agent; Z88.6 Allergy status to analgesic agent; Z88.8 Allergy status to other drugs, medicaments and biological substances
CPT/HCPCS: J2765

== ENCOUNTER 2020-07-26 11:45 | Emergency (ER) | payer MEDICARE ==
[~2020-07-26] VITALS: Ht 157.5 cm; Wt 88.6 kg
[2020-07-26 12:15] VITALS: BP 145/87; PULSE 86; TEMP 97.8
== END 2020-07-26 12:16 | disposition home or self-care (01) ==
LOC: COL.ER 11:45
DX: G89.29 Other chronic pain (principal); F11.20 Opioid dependence, uncomplicated; R10.9 Unspecified abdominal pain; Z88.1 Allergy status to other antibiotic agents; Z88.8 Allergy status to other drugs, medicaments and biological substances; Z88.6 Allergy status to analgesic agent; Z87.891 Personal history of nicotine dependence

== ENCOUNTER 2020-08-08 15:50 | Emergency (ER) | payer MEDICARE ==
[~2020-08-08] VITALS: Ht 157.5 cm; Wt 86.4 kg
[2020-08-08 15:58] VITALS: BP 133/89; TEMP 97.9
[2020-08-08 17:49] LABS: COLLECTION METHOD CLEAN CATCH
[2020-08-08 18:13] LABS: MUCOUS Present /lpf; PH 7 (5-8); URINE APPEARANCE Hazy; URINE BACTERIA None Seen /hpf; URINE BILIRUBIN Negative (NEGATIVE); URINE BLOOD Negative (NEGATIVE); URINE COLOR Yellow; URINE GLUCOSE Negative (NEGATIVE); URINE KETONE Negative (NEGATIVE); URINE LEUKOCYTE ESTERASE Negative (NEGATIVE); URINE NITRATE Negative (NEGATIVE); URINE PROTEIN(semi-quant) Negative (NEGATIVE); URINE RBC 0-2 /hpf; URINE UROBILINOGEN Negative (NEGATIVE)
[2020-08-08 19:12] VITALS: PULSE 97
== END 2020-08-08 19:12 | disposition home or self-care (01) ==
LOC: COL.ER 15:50
PROVIDERS: Nurse Practitioner
DX: G89.29 Other chronic pain (principal); R10.11 Right upper quadrant pain; F11.20 Opioid dependence, uncomplicated; Z90.49 Acquired absence of other specified parts of digestive tract; Z90.710 Acquired absence of both cervix and uterus; Z88.1 Allergy status to other antibiotic agents; Z88.6 Allergy status to analgesic agent; Z88.8 Allergy status to other drugs, medicaments and biological substances
CPT/HCPCS: J2405; J7030

== ENCOUNTER 2020-09-02 14:42 | Emergency (ER) | payer MEDICARE ==
[~2020-09-02] VITALS: Ht 157.5 cm; Wt 81.8 kg
[2020-09-02 14:50] VITALS: BP 170/119; TEMP 96
[2020-09-02 15:28] LABS: BASO % 0.6 % (0.0-2.0); EOS # 0.1 (0.0-0.7); EOS % 2.2 % (0-4.0); GRAN # 3.2 (1.4-6.5); GRAN % 50.1 % (42.2-75.2); HEMATOCRIT 45.1 % (37.0-47.0); HEMOGLOBIN 14.9 g/dl (12.5-16.0); LYMPH # 2.7 (1.2-3.4); LYMPH % 42.3 % (20.0-51.0); MEAN CELL VOLUME 90 fl (80.0-100.0); MEAN CORPUSCULAR HEMOGLOBIN 30 pg (27.0-31.0); MEAN CORPUSCULAR HGB CONC 33 g/dl (33.0-37.0); MEAN PLATELET VOLUME 11.2 fl (7.4-10.4); MONO # 0.3 (0.1-0.6); PLATELET COUNT 271 K/mm3 (130-400); RED BLOOD COUNT 5.04 M/mm3 (4.10-5.30); REDCELL DISTRIBUTION WIDTH-CV 13.7 % (11.5-14.5)
[2020-09-02 15:40] LABS: ALBUMIN 4.2 gm/dL (3.5-5.0); BILIRUBIN,TOTAL 0.1 mg/dL (0.0-1.0); CALCIUM 9.6 mg/dL (8.4-10.2); CREATININE, serum 0.66 (0.52-1.25); POTASSIUM 3.9 mmol/L (3.4-5.0); TOTAL PROTEIN 7.5 gm/dL (6.4-8.2)
[2020-09-02 16:11] LABS: COLLECTION METHOD CLEAN CATCH
[2020-09-02 16:17] LABS: PH 6 (5-8); URINE APPEARANCE Clear; URINE BACTERIA None Seen /hpf; URINE BILIRUBIN Negative (NEGATIVE); URINE BLOOD Negative (NEGATIVE); URINE COLOR Yellow; URINE GLUCOSE Negative (NEGATIVE); URINE KETONE Negative (NEGATIVE); URINE LEUKOCYTE ESTERASE Negative (NEGATIVE); URINE NITRATE Negative (NEGATIVE); URINE PROTEIN(semi-quant) Negative (NEGATIVE); URINE RBC None Seen /hpf; URINE UROBILINOGEN Negative (NEGATIVE)
[2020-09-02] MEDS ORDERED: PHENERGAN 25 TA25 MG PO (16:44)
[2020-09-02 17:05] VITALS: PULSE 98
== END 2020-09-02 17:05 | disposition home or self-care (01) ==
LOC: COL.ER 14:42
PROVIDERS: Nurse Practitioner
DX: G89.29 Other chronic pain (principal); R10.9 Unspecified abdominal pain; R11.2 Nausea with vomiting, unspecified; F11.20 Opioid dependence, uncomplicated; Z88.1 Allergy status to other antibiotic agents; Z88.8 Allergy status to other drugs, medicaments and biological substances; Z87.891 Personal history of nicotine dependence
CPT/HCPCS: J2550; J3010; J7030

== ENCOUNTER 2020-09-10 16:04 | Emergency (ER) | payer MEDICARE ==
[~2020-09-10] VITALS: Ht 157.5 cm; Wt 86.4 kg
[2020-09-10 16:11] VITALS: TEMP 97
[2020-09-10 18:06] VITALS: BP 137/81; PULSE 98
== END 2020-09-10 18:06 | disposition home or self-care (01) ==
LOC: COL.ER 16:04
DX: G89.29 Other chronic pain (principal); R10.9 Unspecified abdominal pain; R11.2 Nausea with vomiting, unspecified; F11.20 Opioid dependence, uncomplicated; G43.909 Migraine, unspecified, not intractable, without status migrainosus; Z88.6 Allergy status to analgesic agent; Z88.1 Allergy status to other antibiotic agents; Z88.8 Allergy status to other drugs, medicaments and biological substances; Z90.49 Acquired absence of other specified parts of digestive tract; Z90.710 Acquired absence of both cervix and uterus; Z90.722 Acquired absence of ovaries, bilateral
CPT/HCPCS: J2550

== ENCOUNTER 2020-09-29 17:45 | Emergency (ER) | payer MEDICARE ==
[~2020-09-29] VITALS: Ht 157.5 cm; Wt 86.4 kg
[2020-09-29 18:08] VITALS: TEMP 98.6
[2020-09-29 18:12] LABS: COLLECTION METHOD CLEAN CATCH
[2020-09-29 18:51] LABS: MUCOUS Present /lpf; PH 5 (5-8); SQUAMOUS EPITHELIAL 0-2 /hpf; URINE APPEARANCE Cloudy; URINE BACTERIA None Seen /hpf; URINE BILIRUBIN Negative (NEGATIVE); URINE BLOOD Negative (NEGATIVE); URINE CALCIUM OXALATE CRYSTAL Present /hpf; URINE COLOR Yellow; URINE GLUCOSE Negative (NEGATIVE); URINE KETONE Trace (NEGATIVE); URINE LEUKOCYTE ESTERASE Negative (NEGATIVE); URINE NITRATE Negative (NEGATIVE); URINE PROTEIN(semi-quant) 1+ (NEGATIVE); URINE UROBILINOGEN >=4.0 mg/dL (NEGATIVE)
[2020-09-29 19:20] VITALS: BP 124/76; PULSE 84
== END 2020-09-29 19:18 | disposition home or self-care (01) ==
LOC: COL.ER 17:45
PROVIDERS: Emergency Medicine
DX: M54.42 Lumbago with sciatica, left side (principal); G89.29 Other chronic pain; R10.9 Unspecified abdominal pain; R11.2 Nausea with vomiting, unspecified; F11.20 Opioid dependence, uncomplicated; Z88.1 Allergy status to other antibiotic agents; Z88.8 Allergy status to other drugs, medicaments and biological substances; Z88.6 Allergy status to analgesic agent

== ENCOUNTER 2020-10-20 18:27 | Emergency (ER) | payer MEDICARE ==
[~2020-10-20] VITALS: Ht 157.5 cm; Wt 81.8 kg
[2020-10-20 19:10] VITALS: BP 139/79; PULSE 102; TEMP 98.1
== END 2020-10-20 19:10 | disposition home or self-care (01) ==
LOC: COL.ER 18:27
DX: R10.11 Right upper quadrant pain (principal); G89.29 Other chronic pain; R11.2 Nausea with vomiting, unspecified; Z79.891 Long term (current) use of opiate analgesic; Z90.49 Acquired absence of other specified parts of digestive tract; Z90.89 Acquired absence of other organs; Z88.1 Allergy status to other antibiotic agents; Z88.4 Allergy status to anesthetic agent; Z88.6 Allergy status to analgesic agent; Z88.8 Allergy status to other drugs, medicaments and biological substances
CPT/HCPCS: J2765

== ENCOUNTER 2020-11-04 13:16 | Emergency (ER) | payer MEDICARE ==
[~2020-11-04] VITALS: Ht 157.5 cm; Wt 86.4 kg
[2020-11-04 14:43] VITALS: TEMP 98.3
[2020-11-04 16:10] LABS: BASO % 0.6 % (0.0-2.0); EOS # 0.1 (0.0-0.7); EOS % 0.9 % (0-4.0); GRAN # 4.3 (1.4-6.5); GRAN % 66.8 % (42.2-75.2); HEMATOCRIT 46.3 % (37.0-47.0); HEMOGLOBIN 15.4 g/dl (12.5-16.0); LYMPH # 1.7 (1.2-3.4); LYMPH % 26.6 % (20.0-51.0); MEAN CELL VOLUME 91 fl (80.0-100.0); MEAN CORPUSCULAR HEMOGLOBIN 30 pg (27.0-31.0); MEAN CORPUSCULAR HGB CONC 33 g/dl (33.0-37.0); MEAN PLATELET VOLUME 11.1 fl (7.4-10.4); MONO # 0.3 (0.1-0.6); MONO % 3.9 % (1.7-9.3); PLATELET COUNT 247 K/mm3 (130-400); RED BLOOD COUNT 5.08 M/mm3 (4.10-5.30); REDCELL DISTRIBUTION WIDTH-CV 13.1 % (11.5-14.5)
[2020-11-04 16:17] LABS: ALBUMIN 4.2 gm/dL (3.5-5.0); BILIRUBIN,TOTAL 0.4 mg/dL (0.0-1.0); CALCIUM 9.8 mg/dL (8.4-10.2); CREATININE, serum 0.74 (0.52-1.25); POTASSIUM 3.9 mmol/L (3.4-5.0); TOTAL PROTEIN 7.5 gm/dL (6.4-8.2)
[2020-11-04 16:33] VITALS: BP 117/65; PULSE 84
== END 2020-11-04 16:33 | disposition home or self-care (01) ==
LOC: COL.ER 13:16
PROVIDERS: Emergency Medicine
DX: G89.29 Other chronic pain (principal); R10.11 Right upper quadrant pain; F11.90 Opioid use, unspecified, uncomplicated; R11.2 Nausea with vomiting, unspecified; G43.909 Migraine, unspecified, not intractable, without status migrainosus; Z88.6 Allergy status to analgesic agent; Z88.1 Allergy status to other antibiotic agents; Z88.8 Allergy status to other drugs, medicaments and biological substances; Z90.49 Acquired absence of other specified parts of digestive tract; Z90.722 Acquired absence of ovaries, bilateral
CPT/HCPCS: J2270

== ENCOUNTER 2020-11-26 10:33 | Emergency (ER) | payer MEDICARE ==
[~2020-11-26] VITALS: Ht 157.5 cm; Wt 86.4 kg
[2020-11-26 13:22] VITALS: BP 125/60; PULSE 77; TEMP 98.6
== END 2020-11-26 13:23 | disposition home or self-care (01) ==
LOC: COL.ER 10:33
DX: G89.29 Other chronic pain (principal); R10.11 Right upper quadrant pain; R10.13 Epigastric pain; F11.90 Opioid use, unspecified, uncomplicated; G43.909 Migraine, unspecified, not intractable, without status migrainosus; Z90.722 Acquired absence of ovaries, bilateral; Z90.710 Acquired absence of both cervix and uterus; Z90.49 Acquired absence of other specified parts of digestive tract; Z88.6 Allergy status to analgesic agent; Z87.891 Personal history of nicotine dependence; Z88.8 Allergy status to other drugs, medicaments and biological substances
CPT/HCPCS: J1170; J2765

== ENCOUNTER 2020-12-11 13:59 | Emergency (ER) | payer MEDICARE ==
[~2020-12-11] VITALS: Ht 157.5 cm; Wt 81.8 kg
[2020-12-11 14:11] VITALS: BP 114/82; PULSE 90; TEMP 97
== END 2020-12-11 15:20 | disposition home or self-care (01) ==
LOC: COL.ER 13:59
DX: G89.29 Other chronic pain (principal); R10.9 Unspecified abdominal pain; F11.10 Opioid abuse, uncomplicated; R11.2 Nausea with vomiting, unspecified; G43.909 Migraine, unspecified, not intractable, without status migrainosus; F17.200 Nicotine dependence, unspecified, uncomplicated; Z87.19 Personal history of other diseases of the digestive system; Z90.49 Acquired absence of other specified parts of digestive tract; Z88.8 Allergy status to other drugs, medicaments and biological substances; Z79.899 Other long term (current) drug therapy
CPT/HCPCS: J2765

== ENCOUNTER 2021-01-03 12:41 | Emergency (ER) | payer MEDICARE ==
[~2021-01-03] VITALS: Ht 157.5 cm; Wt 81.8 kg
[2021-01-03 13:18] VITALS: BP 147/89; PULSE 116; TEMP 98.1
== END 2021-01-03 16:54 | disposition left against medical advice (07) ==
LOC: COL.ER 12:41
DX: R10.9 Unspecified abdominal pain (principal)

== ENCOUNTER 2021-01-06 14:54 | Emergency (ER) | payer MEDICARE ==
[~2021-01-06] VITALS: Ht 157.5 cm; Wt 81.8 kg
[2021-01-06 15:18] VITALS: TEMP 97.8
[2021-01-06 16:15] VITALS: BP 136/84; PULSE 98
== END 2021-01-06 16:15 | disposition home or self-care (01) ==
LOC: COL.ER 14:54
DX: R11.2 Nausea with vomiting, unspecified (principal); G89.29 Other chronic pain; G43.909 Migraine, unspecified, not intractable, without status migrainosus; F41.9 Anxiety disorder, unspecified; Z90.49 Acquired absence of other specified parts of digestive tract; Z79.899 Other long term (current) drug therapy; Z88.8 Allergy status to other drugs, medicaments and biological substances
CPT/HCPCS: J1170; J2765

== ENCOUNTER 2021-01-17 17:11 | Emergency (ER) | payer MEDICARE ==
[~2021-01-17] VITALS: Ht 157.5 cm; Wt 81.8 kg
[2021-01-17 17:42] VITALS: TEMP 97.7
[2021-01-17 19:30] LABS: BASO % 0.4 % (0.0-2.0); EOS # 0.1 (0.0-0.7); EOS % 2.5 % (0-4.0); GRAN % 56.9 % (42.2-75.2); HEMATOCRIT 45.1 % (37.0-47.0); HEMOGLOBIN 15.3 g/dl (12.5-16.0); LYMPH # 1.9 (1.2-3.4); LYMPH % 36.4 % (20.0-51.0); MEAN CELL VOLUME 92 fl (80.0-100.0); MEAN CORPUSCULAR HEMOGLOBIN 31 pg (27.0-31.0); MEAN CORPUSCULAR HGB CONC 34 g/dl (33.0-37.0); MEAN PLATELET VOLUME 10.6 fl (7.4-10.4); MONO # 0.2 (0.1-0.6); MONO % 3.6 % (1.7-9.3); PLATELET COUNT 201 K/mm3 (130-400); RED BLOOD COUNT 4.88 M/mm3 (4.10-5.30); REDCELL DISTRIBUTION WIDTH-CV 12.4 % (11.5-14.5)
[2021-01-17 19:33] LABS: ALBUMIN 4.3 gm/dL (3.5-5.0); BILIRUBIN,TOTAL 0.5 mg/dL (0.0-1.0); C-REACTIVE PROTEIN 0.9 mg/dL (0.0-0.9); CALCIUM 9.9 mg/dL (8.4-10.2); CREATININE, serum 0.9 (0.52-1.25); POTASSIUM 3.8 mmol/L (3.4-5.0); TOTAL PROTEIN 7.1 gm/dL (6.4-8.2)
[2021-01-17 20:04] VITALS: BP 144/70; PULSE 76
== END 2021-01-17 20:04 | disposition home or self-care (01) ==
LOC: COL.ER 17:11
PROVIDERS: Nurse Practitioner
DX: R10.13 Epigastric pain (principal); G89.29 Other chronic pain; R11.2 Nausea with vomiting, unspecified
CPT/HCPCS: J2550

== ENCOUNTER 2021-01-21 09:36 | Emergency (ER) | payer MEDICARE ==
[~2021-01-21] VITALS: Ht 157.5 cm; Wt 81.8 kg
[2021-01-21 09:55] VITALS: TEMP 97.4
[2021-01-21 11:32] VITALS: BP 135/97; PULSE 114
== END 2021-01-21 11:58 | disposition home or self-care (01) ==
LOC: COL.ER 09:36
DX: R10.11 Right upper quadrant pain (principal); G89.29 Other chronic pain; R11.2 Nausea with vomiting, unspecified; G43.909 Migraine, unspecified, not intractable, without status migrainosus; Z90.49 Acquired absence of other specified parts of digestive tract; Z88.5 Allergy status to narcotic agent; Z79.899 Other long term (current) drug therapy
CPT/HCPCS: J1170; J2550

== ENCOUNTER 2021-01-24 13:36 | Emergency (ER) | payer MEDICARE ==
[~2021-01-24] VITALS: Ht 157.5 cm; Wt 81.8 kg
[2021-01-24 13:51] VITALS: TEMP 98.4
[2021-01-24 14:28] LABS: BASO % 0.4 % (0.0-2.0); EOS % 0.4 % (0-4.0); GRAN # 3.7 (1.4-6.5); HEMATOCRIT 45.4 % (37.0-47.0); HEMOGLOBIN 15.4 g/dl (12.5-16.0); LYMPH # 1.8 (1.2-3.4); LYMPH % 30.8 % (20.0-51.0); MEAN CELL VOLUME 92 fl (80.0-100.0); MEAN CORPUSCULAR HEMOGLOBIN 31 pg (27.0-31.0); MEAN CORPUSCULAR HGB CONC 34 g/dl (33.0-37.0); MEAN PLATELET VOLUME 10.3 fl (7.4-10.4); MONO # 0.2 (0.1-0.6); MONO % 3.9 % (1.7-9.3); PLATELET COUNT 295 K/mm3 (130-400); RED BLOOD COUNT 4.95 M/mm3 (4.10-5.30); REDCELL DISTRIBUTION WIDTH-CV 12.3 % (11.5-14.5)
[2021-01-24 15:14] LABS: ALANINE AMINOTRANSFERASE 32 U/L (4-34); ALBUMIN 4.2 gm/dL (3.5-5.0); ALKALINE PHOSPHATASE 71 U/L (50-136); ANION GAP 7 mmol/L (7-16); AST,SGOT 40 U/L (15-37); BILIRUBIN,TOTAL 0.4 mg/dL (0.0-1.0); BLOOD UREA NITROGEN 17 mg/dL (7-17); CALCIUM 9.5 mg/dL (8.4-10.2); CARBON DIOXIDE 29 mmol/L (22-30); CHLORIDE 105 mmol/L (98-107); CREATININE, serum 0.82 (0.52-1.25); GLUCOSE 134 mg/dL (74-106); POTASSIUM 3.9 mmol/L (3.4-5.0); SODIUM 141 mmol/L (137-145); TOTAL PROTEIN 7.2 gm/dL (6.4-8.2)
[2021-01-24 15:26] LABS: TROPONIN-I < 0.012 ng/mL (0.000-0.035)
[2021-01-24 15:48] VITALS: BP 121/77; PULSE 100
== END 2021-01-24 15:52 | disposition home or self-care (01) ==
LOC: COL.ER 13:36
PROVIDERS: Emergency Medicine
DX: R07.2 Precordial pain (principal); F41.9 Anxiety disorder, unspecified; G43.909 Migraine, unspecified, not intractable, without status migrainosus; Z79.899 Other long term (current) drug therapy
CPT/HCPCS: J7030

== ENCOUNTER 2021-02-18 15:12 | Emergency (ER) | payer MEDICARE ==
[~2021-02-18] VITALS: Ht 157.5 cm; Wt 77.3 kg
[2021-02-18 15:21] VITALS: TEMP 98.2
[2021-02-18 16:36] VITALS: BP 129/70; PULSE 84
== END 2021-02-18 16:37 | disposition home or self-care (01) ==
LOC: COL.ER 15:12
DX: R10.9 Unspecified abdominal pain (principal); G89.29 Other chronic pain; F41.9 Anxiety disorder, unspecified; Z90.49 Acquired absence of other specified parts of digestive tract; Z87.891 Personal history of nicotine dependence; Z88.5 Allergy status to narcotic agent; Z79.891 Long term (current) use of opiate analgesic
CPT/HCPCS: J2765

== ENCOUNTER 2021-03-16 09:58 | Emergency (ER) | payer MEDICARE ==
[~2021-03-16] VITALS: Ht 157.5 cm; Wt 79.7 kg
[2021-03-16 12:45] VITALS: BP 134/64; PULSE 88; TEMP 98.4
== END 2021-03-16 13:00 | disposition home or self-care (01) ==
LOC: COL.ER 09:58
DX: R10.11 Right upper quadrant pain (principal); Z90.49 Acquired absence of other specified parts of digestive tract
CPT/HCPCS: J1200; J2765

== ENCOUNTER 2021-05-20 13:59 | Emergency (ER) | payer MEDICARE ==
[~2021-05-20] VITALS: Ht 157.5 cm; Wt 77.3 kg
[2021-05-20 17:14] VITALS: BP 120/89; PULSE 102; TEMP 98.4
== END 2021-05-20 17:29 | disposition home or self-care (01) ==
LOC: COL.ER 13:59
DX: G43.909 Migraine, unspecified, not intractable, without status migrainosus (principal); R10.11 Right upper quadrant pain; G89.29 Other chronic pain; F32.A Depression, unspecified; F41.9 Anxiety disorder, unspecified; Z90.49 Acquired absence of other specified parts of digestive tract; Z88.5 Allergy status to narcotic agent; Z79.899 Other long term (current) drug therapy
CPT/HCPCS: J1200; J2060; J2765; J7030

== ENCOUNTER 2024-01-23 15:59 | Emergency (ER) | payer MEDICARE ==
[~2024-01-23] VITALS: Ht 157.5 cm; Wt 77.3 kg
[2024-01-23 16:04] VITALS: TEMP 98.5
[2024-01-23] MEDS ORDERED: Ondansetron 4 MG/2 ML VIAL IV ONE (17:15)
[2024-01-23] MEDS ORDERED: Morphine 4 MG/ML VIAL IV ONE ×2 (17:15→18:00)
[2024-01-23] MEDS ORDERED: NS 1,000 ML IV ONE (17:15)
[2024-01-23 17:21] LABS: BASO # 0.1 K/mm3 (0.0-0.2); BASO % 0.8 % (0.0-2.0); EOS # 0.1 K/mm3 (0.0-0.7); EOS % 1.3 % (0.0-4.0); HEMATOCRIT 46.7 % (37.0-47.0); HEMOGLOBIN 16.1 g/dl (12.5-16.0); LYMPH # 2.1 K/mm3 (1.2-3.4); LYMPH % 27.5 % (20.0-51.0); MEAN CELL VOLUME 86 fl (80.0-100.0); MEAN CORPUSCULAR HEMOGLOBIN 30 pg (27-31); MEAN CORPUSCULAR HGB CONC 35 g/dl (33.0-37.0); MEAN PLATELET VOLUME 11.2 fl (7.4-10.4); MONO # 0.3 K/mm3 (0.1-0.6); MONO % 3.9 % (1.7-9.3); PLATELET COUNT 289 K/mm3 (130-400); RED BLOOD COUNT 5.42 M/mm3 (4.10-5.30); REDCELL DISTRIBUTION WIDTH-CV 13.6 % (11.5-14.5)
[2024-01-23 17:36] LABS: ALBUMIN 4.3 g/dL (3.5-5.0); BILIRUBIN,TOTAL 0.4 mg/dL (0.2-1.2); C-REACTIVE PROTEIN 0.51 mg/dL (0.00-0.50); CALCIUM 10.3 mg/dL (8.4-10.2); CREATININE, serum 0.94 mg/dL (0.57-1.11); POTASSIUM 3.2 mEq/L (3.5-4.5); TOTAL PROTEIN 8.5 g/dl (6.2-8.1)
[2024-01-23 18:40] VITALS: BP 160/90; PULSE 99
== END 2024-01-23 18:48 | disposition home or self-care (01) ==
LOC: COL.ER 15:59
PROVIDERS: Nurse Practitioner
DX: R10.11 Right upper quadrant pain (principal); E87.6 Hypokalemia
CPT/HCPCS: J2270; J2405; J7030

== ENCOUNTER 2024-03-22 04:40 | Emergency (ER) | payer MEDICARE ==
[~2024-03-22] VITALS: Ht 157.5 cm; Wt 81.8 kg
[2024-03-22 05:08] VITALS: TEMP 98.8
[2024-03-22] MEDS ORDERED: Ondansetron 4 MG/2 ML VIAL IV ONE (05:15)
[2024-03-22] MEDS ORDERED: diphenhydrAMINE 50 MG/ML 1 ML VIAL IV ONE (05:30)
[2024-03-22] MEDS ORDERED: LR 1,000 ML IV ONE (05:30)
[2024-03-22 05:58] LABS: BASO # 0.1 K/mm3 (0.0-0.2); BASO % 0.7 % (0.0-2.0); EOS # 0.1 K/mm3 (0.0-0.7); EOS % 0.8 % (0.0-4.0); GRAN % 71.3 % (42.2-75.2); HEMATOCRIT 46.7 % (37.0-47.0); LYMPH # 2.5 K/mm3 (1.2-3.4); LYMPH % 22.3 % (20.0-51.0); MEAN CELL VOLUME 88 fl (80.0-100.0); MEAN CORPUSCULAR HEMOGLOBIN 30 pg (27-31); MEAN CORPUSCULAR HGB CONC 34 g/dl (33.0-37.0); MEAN PLATELET VOLUME 10.6 fl (7.4-10.4); MONO # 0.4 K/mm3 (0.1-0.6); MONO % 3.7 % (1.7-9.3); PLATELET COUNT 356 K/mm3 (130-400); RED BLOOD COUNT 5.34 M/mm3 (4.10-5.30); REDCELL DISTRIBUTION WIDTH-CV 13.2 % (11.5-14.5)
[2024-03-22 06:20] LABS: ALBUMIN 3.9 g/dL (3.5-5.0); BILIRUBIN,TOTAL 0.4 mg/dL (0.2-1.2); CALCIUM 9.8 mg/dL (8.4-10.2); CREATININE, serum 0.81 mg/dL (0.57-1.11); POTASSIUM 3.4 mEq/L (3.5-4.5); TOTAL PROTEIN 7.8 g/dl (6.2-8.1)
[2024-03-22] MEDS ORDERED: Morphine 4 MG/ML VIAL IV ONE (06:30)
[2024-03-22 07:05] VITALS: BP 155/97; PULSE 70
== END 2024-03-22 07:05 | disposition home or self-care (01) ==
LOC: COL.ER 04:40
PROVIDERS: Emergency Medicine
DX: R19.7 Diarrhea, unspecified (principal); R51.9 Headache, unspecified
CPT/HCPCS: J1200; J2270; J7120